=== PATIENT | female | born 1930 | race Caucasian/White ===

== ENCOUNTER 2016-09-24 19:52 | Inpatient (IN) | payer MEDICARE, OTHER ==
[~2016-09-24] VITALS: Ht 170.2 cm; Wt 90.1 kg
[~2016-09-24 19:52] MED LIST: FEXO180T85 PO; FURO40TA4 PO; HYDR99LO TOP; HYPR25DR2 BOTH_EYES; LACT10SO27 PO; METO25TA99 PO; OMEP20CA11 PO; PETR3.5O BOTH_EYES; PROP10DR5 BOTH_EYES; SPIR50TA2 PO
[2016-09-24 19:55] VITALS: BP 133/64; PULSE 80; RESP 18; O2SAT 95
[2016-09-24 20:36] LABS: BASOPHILS % (AUTO) 0.2 % (0-3); EOSINOPHILS % (AUTO) 3.2 % (0-5); MONOCYTES % (AUTO) 10.6 % (4-12); Mean Corpuscular Hemoglobin 32.4 pg (27.0-35.0); Mean Corpuscular Volume 99.3 fL (81-100); NEUTROPHILS % (AUTO) 74.6 % (40-74); Platelet Count 157 bil/L (150-400)
--- NOTE | 2016-09-24 21:23 | ED.REPORT ---
HPI-General Illness Date of Service Sep 24, 2016 ED Provider: Jose Chamberlain MD An 86 year old female with a history of [place], fatty liver, kidney issues, and recent UTI presents to the ED with family due to lower extremity edema and weakness. Per pt's family, she has been fatigued, moaning, and complaining of "feeling unwell" since yesterday. She also admits to dysuria and began complaining of a headache and left arm pain in the ED. The lower extremity edema was present before this point. The pt is on Lasix and her PCP has been increasing her dose, but her family states that this does not appear to be helping. She is now taking 80 mg. The pt denies fever, vomiting, abdominal pain , chest pain, shortness of breath, rhinorrhea, or diarrhea. The pt was admitted on 07/27/2016 for severe sepsis, UTI, and acute on chronic kidney injury. She was discharged on 07/31/2016 after a course of antibiotics. Nursing Notes Stated Complaint: HEADACHE,CAN'T STAND Chief Complaint: General Complaint Nursing Notes Reviewed: Yes Allergies: Coded Allergies: [place] And Derivatives (Verified Allergy, Severe, Rash,Itching,SOB, ) MUSHROOM (Verified Allergy, Severe, Rash,Itching,SOB, 08/30/16) shellfish derived (Verified Allergy, Severe, Headache, 08/30/16) Oily Fish (Verified Allergy, Intermediate, Hives, migraines, 08/30/16) Penicillins (Verified Allergy, Intermediate, rash, 08/30/16) quinine (Verified Allergy, Intermediate, rash, 08/30/16) Uncoded Allergies: SHELL FISH (Allergy, Intermediate, abd pain, rash, 03/20/16) migrains Scheduled Furosemide (Furosemide) 40 Mg Tablet 40 MG PO DAILY Metoprolol Succinate ER (Metoprolol Succinate ER) 25 Mg Tab.er.24h 12.5 TAB PO BID Mineral Oil/Petrolatum,White (Refresh P.m. Ointment) 3.5 Gm Oint...g. 1 APPLIC BOTH_EYES HS Omeprazole (Omeprazole) 20 Mg Capsule.dr 20 MG PO QAM Spironolactone (Spironolactone) 50 Mg Tablet 50 MG PO DAILY Scheduled PRN Fexofenadine (Padma Allergy) 180 Mg Tablet 180 MG PO DAILY PRN PRN For Congestion Hydrocortisone (Cortizone-10) 99 Gm Lotion 1 APPLIC TOP DAILY PRN PRN skin irritation apply to affected area Hypromellose (Genteal Mild To Moderate) 25 Ml Drops 1 GTT BOTH_EYES BID PRN PRN For Eye Irritation Lactulose (Lactulose) 10 Gm/15 Ml Solution 10 GM PO ASDIRECTED PRN PRN 2 stool per day take one to three times a day with goal of at least 2 bowel movements daily Propylene Glycol/Peg 400 (Systane Gel Eye Drops) 10 Ml Drops.gel 1 GTT BOTH_ EYES DAILY PRN PRN For Eye Irritation General Time Seen by MD: 21:17 Chief Complaint Other (Malaise) Hx Obtained From: Patient, Other family... Arrived By: Walk-in Sudden in Onset?: No Onset Occurred: 1 day ago Symptom Duration: Since onset Recent Healthcare: Recent doctor visit, Recent hospitalization Similar Sx Previous: No Past Medical History Past Medical History Notes: Admit July 27 through 07/31/2016 for severe sepsis, UTI, acute on chronic kidney injury Code status: DNR Past Medical History 1. 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 Chronic macrocytic anemia b. Splenomegaly and chronic thrombocytopenia 2. Hypertension, controlled 3. History of UTIs, recent UTI 07/27/16 culture positive Klebsiella, ampicillin resistant 4. 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. 5. Right thyroid nodule. 6. Anemia with microcytosis. 7. Depression. 8. History of basal cell carcinoma of the forehead. 9. Recent admission with septic shock due to acute cholecystitis managed medically, complicated by TAMELA 10. Coronary artery disease, remote myocardial infarction. 11. Chronic knee pain 12. [place] 13. Fatty liver 14. UTI Past Surgical History Reports: Hysterectomy Smoking History Never Smoker Social History Alcohol Use: Denies alcohol use Drug Use: Denies drug use Other Social History: Good social support, Local resident Ambulatory Status Independent Review of Systems lower extremity edema Full Review of Systems Constitutional: Reports: Fatigue, Malaise, Weakness - generalized, Denies: Fever Respiratory: Denies: Non-productive cough, Shortness of breath Cardiovascular: Denies: Chest pain GI: Denies: Abdominal pain, Diarrhea, Nausea, Vomiting Female: Reports: Dysuria Musculoskeletal: Reports: Extremity pain (left arm) Skin: Denies Rash Allergy / Immune: Denies: Rhinorrhea Neurologic: Reports: Headache Complete sys rev & neg: except as marked. Physical Exam Vital Signs Vital Signs Date Time Temp Pulse Resp B/P Pulse Ox O2 Delivery O2 Flow Rate FiO2 09/24/16 22:15 77 23 130/42 96 Room Air 09/24/16 19:55 36.4 80 18 133/64 95 Room Air Initial VS: Reviewed General/Constitutional: Awake, Alert Head / Eyes: Atraumatic, Normocephalic, PERRL, EOMI ENT: Atraumatic, Airway patent, Mucous membranes moist Neck: Atraumatic, Supple, Full range of motion Respiratory / Chest: Atraumatic, Breath sounds NL, Breath sounds = bilat, No respiratory distress Cardiovascular: Heart rate NL, Regular rhythm, Heart sounds NL Abdomen: Atraumatic, Soft, Non-tender, No guarding, No rebound Back: Atraumatic, Full range of motion Upper Extremities Upper Extremity / MS: Atraumatic, Full range of motion Lower Extremity / Pelvis / MS: Atraumatic, Full range of motion 2+ lower extremity edema Skin: Atraumatic, Color NL, No rash, Warm, Dry Neurologic: Oriented X3, Speech NL, No motor deficits, No sensory deficits Psychiatric: Affect NL, Mood NL Interpretation & Diagnostics Lab Results Interpretation Result Diagram: 09/24/16 2030 09/24/16 2030 Test 09/24/16 20:30 09/24/16 23:59 White Blood Count 9.4th/mm3 (3.8-10.1) Red Blood Count 2.99mil/mm3 (3.90-5.20) Hemoglobin 9.7g/dL (12.0-15.6) Hematocrit 29.7% (35.0-46.0) Mean Corpuscular Volume 99.3fL (81-100) Mean Corpuscular Hemoglobin 32.4pg (27.0-35.0) Mean Corpuscular Hemoglobin Concent 32.7% (32.0-37.0) Red Cell Distribution Width 14.8% (12.3-15.4) Platelet Count 157bil/L (150-400) Neutrophils (%) (Auto) 74.6% (40-74) Lymphocytes (%) (Auto) 11.2% (14-46) Monocytes (%) (Auto) 10.6% (4-12) Eosinophils (%) (Auto) 3.2% (0-5) Basophils (%) (Auto) 0.2% (0-3) Sodium Level 137mEq/L (134-144) Potassium Level 2.3mEq/L (3.5-5.2) Chloride Level 93mEq/L (97-108) Carbon Dioxide Level 28mmol/L (18-29) Blood Urea Nitrogen 33mg/dL (8-27) Creatinine 2.29mg/dL (0.57-1.00) Estimat Glomerular Filtration Rate 29mL/min (>59) Glucose Level 195mg/dL (60-99) Calcium Level 8.9mg/dL (8.5-10.1) Magnesium Level 2.0mg/dL (1.6-2.6) Total Bilirubin 1.8mg/dL (0.0-1.2) Aspartate Amino Transf (AST/SGOT) 56U/L (0-50) Alanine Aminotransferase (ALT/SGPT) 27U/L (0-32) Alkaline Phosphatase 175U/L (25-165) Troponin T 0.033ug/L (0.0-0.011) Total Protein 6.7g/dL (6.4-8.4) Albumin 3.1g/dL (3.4-5.0) Hold Mares Top Tube Received (Received) Urine Color Yellow (YELLOW) Urine Appearance Hazy (CLEAR,HAZY) Urine pH 6.0 (5.0-8.0) Urine Specific [place] 1.010 (1.003-1.035) Urine Protein Negativemg/dL (NEG,TRACE) Urine Glucose (UA) Negativemg/dL (NEGATIVE) Urine Ketones Negativemg/dL (NEGATIVE) Urine Occult Blood Trace (NEGATIVE) Urine Nitrite Positive (NEGATIVE) Urine Bilirubin Negative (NEGATIVE) Urine Urobilinogen Normalmg/dL (NORMAL) Urine Leukocyte Esterase Moderate (NEGATIVE) Urine RBC 0-2/hpf (0-2) Urine WBC >50/hpf (0-5) Urine Epithelial Cells Few/hpf (NONE-MOD) Urine Crystals None seen (NONE SEEN) Urine Bacteria Many/hpf (NONE-FEW) Urine Hyaline Casts None/lpf (NONE) Urine Granular Casts None seen (NONE SEEN) Urine Waxy Casts None seen (NONE SEEN) Urine Red Blood Cell Casts None seen (NONE SEEN) Urine White Blood Cell Casts None seen (NONE SEEN) Urine Mucus None seen (None Seen) Urine Trichomonas None seen (NONE SEEN) Urine Yeast None (NONE SEEN) Urinalysis Comment None Urine Culture Reflexed Indicated ECG Interpretation ECG Interpretation: normal sinus rhythm with a rate of 75 atrial premature complex LVH with secondary repolarization abnormality Time: 21:33 Interpreted by: ED physician Re-Eval/Medical Decision Med Decision/Clinical Course 86-year-old female history of nonalcoholic fatty liver cirrhosis, recent admission for urosepsis presenting with weakness times several days. Potassium is 2.3. Urine positive leukocytes. Creatinine is 2.2. Hypokalemia likely due to diuretic use with furosemide. Patient will be admitted for hypokalemia, acute kidney injury, UTI. She was given 1 dose of Rocephin here after blood cultures. Has a groin rash appears candidal. We will admit to telemetry. Source of Hx: Old records Time of Eval: 21:17 Patient Status: Condition unchanged Re-Evaluation/Progress Note: Pt informed of the need for admission during the intial interview. The pt understands and agrees with the plan. All questions are addressed at this time. Consultation : Referral / Consult Name: Nilsa Duarte MD Consulted With: Hospitalist Call Returned at: 00:14 Labeling Specialist: Agrees with eval, Agrees with plan, Accepts admit Note: Spoke with Dr. Duarte, hospitalist, regarding pt's case. Dr. Duarte agrees with the evaluation and agrees to admit the pt. Counseled Regarding: Diagnosis, Lab results, Need for admission Discharge & Departure Primary Impression: Hypokalemia Additional Impressions: UTI (urinary tract infection) Urinary tract infection type: site unspecified Hematuria presence: without hematuria Qualified Code: N39.0 - Urinary tract infection, site not specified Acute kidney injury Disposition: ADMITTED TO HOSPITAL Discharge Condition All VS Reviewed: Yes Condition: Stable Referrals: [facility] (PCP) [place] Attestation Portions of this note were transcribed by Abel Kapoor. I, Dr. Chamberlain personally performed the history, physical exam and medical decision-making; I reviewed and confirmed the accuracy of the information in the transcribed note. Signed by: Palmira Moscoso, 09/25/2016 and 00:25. copies to: [facility] Jose Chamberlain MD Sep 24, 2016 21:23 ABEL KAPOOR Sep 25, 2016 00:26
[2016-09-24] MEDS ORDERED: KCl 40 mEq/D5W 500 mL 40 MEQ in IV Premix 1 EACH IV ONE (21:50)
[2016-09-24] MEDS ORDERED: 0.9% Sodium Chloride 1,000 ML IV ONE (21:50)
[2016-09-24 22:15] VITALS: BP 130/42; PULSE 77; RESP 23; O2SAT 96
[2016-09-25] VITALS (9 sets, daily range): BP systolic 107–142; BP diastolic 46–68; PULSE 69–81; RESP 17–22; O2SAT 93–97
[2016-09-25] MEDS ORDERED: cefTRIAXone Inj 1,000 MG in IV Premix 1 EACH IV ONE (00:05)
[2016-09-25] MEDS ORDERED: Ondansetron 2 mg/mL 2 mL Inj IVPUSH PRN ×2 (00:20→01:05)
[2016-09-25] MEDS ORDERED: Alum-Mag Hydrox-Simeth 30 mL Suspension PO PRN ×2 (00:20→01:05)
[2016-09-25 00:42] LABS: APPEARANCE,URINE HAZY (CLEAR,HAZY); COLOR,URINE YELLOW (YELLOW); OCCULT BLOOD,URINE TRACE (NEGATIVE); UROBILINOGEN,URINE NORMAL (NORMAL)
[2016-09-25] MEDS ORDERED: Polyethylene Glycol (PEG) 17 Gm Powder PO PRN (01:05)
[2016-09-25] MEDS ORDERED: Potassium Chloride 20 mEq/15 mL 15mL Oral Soln PO ONE ×2 (01:15→17:10)
--- NOTE | 2016-09-25 01:34 | PCM.HPMED ---
Subjective Date of Service Sep 25, 2016 Primary Provider: Admitting Physician: Nilsa Duarte MD Primary Care Physician: Clinic,[facility] Residency Attending Physician: Nilsa Duarte MD Admit Status: From the Emergency Department, Full Admit, Remote Telemetry Chief Complaint: Generalized weakness History of Present Illness: This is a 86-year-old female who presents with a several day history of increasing weakness. She denies any fevers or chills. She does admit to some urinary frequency and burning. She had previously been hospitalized here August 30 to the for acute severe sepsis thought secondary to urinary tract infection. Her evaluation here includes labs which are significant for a low potassium level of 2.3 with a BUN of 33 a creatinine of 2.29. At previous visit her BUN was 25 and creatinine was 1.15 calculated GFR 64. She was also found to have a glucose of 195. Her old records does not appear to have a history of diabetes. White count today was 9.4 with 75% polys sodium level was 137 magnesium level was 2.0. Her urine analysis was consistent with a UTI revealing many white cells and many WBCs. Sono patient is on furosemide and spironolactone for lower extremity swelling which might be the source of her hypokalemia. Review of Systems: Patient denies any chest pain denies cough denies any shortness of breath all other review of systems are reviewed and are negative except for as in history of present illness. Allergies Coded Allergies: [place] And Derivatives (Verified Allergy, Severe, Rash,Itching,SOB, ) MUSHROOM (Verified Allergy, Severe, Rash,Itching,SOB, 08/30/16) shellfish derived (Verified Allergy, Severe, Headache, 08/30/16) Oily Fish (Verified Allergy, Intermediate, Hives, migraines, 08/30/16) Penicillins (Verified Allergy, Intermediate, rash, 08/30/16) quinine (Verified Allergy, Intermediate, rash, 08/30/16) Uncoded Allergies: SHELL FISH (Allergy, Intermediate, abd pain, rash, 03/20/16) migrains Home Medications Scheduled Furosemide (Furosemide) 40 Mg Tablet 40 MG PO DAILY Metoprolol Succinate ER (Metoprolol Succinate ER) 25 Mg Tab.er.24h 12.5 TAB PO BID Mineral Oil/Petrolatum,White (Refresh P.m. Ointment) 3.5 Gm Oint...g. 1 APPLIC BOTH_EYES HS Omeprazole (Omeprazole) 20 Mg Capsule.dr 20 MG PO QAM Spironolactone (Spironolactone) 50 Mg Tablet 50 MG PO DAILY Scheduled PRN Fexofenadine (Padma Allergy) 180 Mg Tablet 180 MG PO DAILY PRN PRN For Congestion Hydrocortisone (Cortizone-10) 99 Gm Lotion 1 APPLIC TOP DAILY PRN PRN skin irritation apply to affected area Hypromellose (Genteal Mild To Moderate) 25 Ml Drops 1 GTT BOTH_EYES BID PRN PRN For Eye Irritation Lactulose (Lactulose) 10 Gm/15 Ml Solution 10 GM PO ASDIRECTED PRN PRN 2 stool per day take one to three times a day with goal of at least 2 bowel movements daily Propylene Glycol/Peg 400 (Systane Gel Eye Drops) 10 Ml Drops.gel 1 GTT BOTH_ EYES DAILY PRN PRN For Eye Irritation PMH Past Medical History Notes: Admit July 27 through 07/31/2016 for severe sepsis, UTI, acute on chronic kidney injury Code status: DNR Past Medical History 1. 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 Chronic macrocytic anemia b. Splenomegaly and chronic thrombocytopenia 2. Hypertension, controlled 3. History of UTIs, recent UTI 07/27/16 culture positive Klebsiella, ampicillin resistant 4. 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. 5. Right thyroid nodule. 6. Anemia with microcytosis. 7. Depression. 8. History of basal cell carcinoma of the forehead. 9. Recent admission with septic shock due to acute cholecystitis managed medically, complicated by TAMELA 10. Coronary artery disease, remote myocardial infarction. 11. Chronic knee pain 12. [place] 13. Fatty liver 14. UTI Past Surgical History Reports: Hysterectomy Family History Mother with a history of [place] causing at age 70 Social History Hx Alcohol Use: No Hx Substance Use: No Hx Tobacco Use: No Smoking Status: Never Smoker Living Arrangement: with Family Exam Vital Signs Vital Sign - Last Date Time Temp Pulse Resp B/P Pulse Ox O2 Delivery O2 Flow Rate FiO2 09/25/16 01:05 76 17 118/46 97 Room Air 09/24/16 19:55 36.4 Intake and Output 09/24/16 09/24/16 09/25/16 Cumulative From/Thru 15:00 23:00 07:00 09/24/16 19:55 - 09/24/16 23:21 Intake Total 1000 ml 1000 ml Balance 1000 ml 1000 ml Intake IV Total 1000 ml 1000 ml Exam Constitutional: Elderly woman in no pain. Appears to be slightly fatigued and lethargic. Head: Normocephalic atraumatic Eyes: PERRLA DC EOMI Mouth: Dry mucosa Neck: No adenopathy Chest: Decreased breath sounds at her bases Cor: Regular rate and rhythm S1-S2 without murmur Abdomen: Soft nontender bowel sounds present Extremities: Bilateral 1+ lower extremity edema with bilateral venous stasis dermatitis changes Skin: No rashes except noted as above Psych: Mood and affect are appropriate Neuro: Alert and oriented 3, motor strength is intact bilaterally Lab and Diagnostics Labs Laboratory Tests 72 Hours Test 09/24/16 20:30 09/24/16 23:59 09/25/16 01:01 White Blood Count 9.4th/mm3 (3.8-10.1) Red Blood Count 2.99mil/mm3 (3.90-5.20) Hemoglobin 9.7g/dL (12.0-15.6) Hematocrit 29.7% (35.0-46.0) Mean Corpuscular Volume 99.3fL (81-100) Mean Corpuscular Hemoglobin 32.4pg (27.0-35.0) Mean Corpuscular Hemoglobin Concent 32.7% (32.0-37.0) Red Cell Distribution Width 14.8% (12.3-15.4) Platelet Count 157bil/L (150-400) Neutrophils (%) (Auto) 74.6% (40-74) Lymphocytes (%) (Auto) 11.2% (14-46) Monocytes (%) (Auto) 10.6% (4-12) Eosinophils (%) (Auto) 3.2% (0-5) Basophils (%) (Auto) 0.2% (0-3) Sodium Level 137mEq/L (134-144) Potassium Level 2.3mEq/L (3.5-5.2) Chloride Level 93mEq/L (97-108) Carbon Dioxide Level 28mmol/L (18-29) Blood Urea Nitrogen 33mg/dL (8-27) Creatinine 2.29mg/dL (0.57-1.00) Estimat Glomerular Filtration Rate 29mL/min (>59) Glucose Level 195mg/dL (60-99) Calcium Level 8.9mg/dL (8.5-10.1) Magnesium Level 2.0mg/dL (1.6-2.6) Total Bilirubin 1.8mg/dL (0.0-1.2) Aspartate Amino Transf (AST/SGOT) 56U/L (0-50) Alanine Aminotransferase (ALT/SGPT) 27U/L (0-32) Alkaline Phosphatase 175U/L (25-165) Total Protein 6.7g/dL (6.4-8.4) Albumin 3.1g/dL (3.4-5.0) Hold Mares Top Tube Received (Received) Urine Color Yellow (YELLOW) Urine Appearance Hazy (CLEAR,HAZY) Urine pH 6.0 (5.0-8.0) Urine Specific [place] 1.010 (1.003-1.035) Urine Protein Negativemg/dL (NEG,TRACE) Urine Glucose (UA) Negativemg/dL (NEGATIVE) Urine Ketones Negativemg/dL (NEGATIVE) Urine Occult Blood Trace (NEGATIVE) Urine Nitrite Positive (NEGATIVE) Urine Bilirubin Negative (NEGATIVE) Urine Urobilinogen Normalmg/dL (NORMAL) Urine Leukocyte Esterase Moderate (NEGATIVE) Urine RBC 0-2/hpf (0-2) Urine WBC >50/hpf (0-5) Urine Epithelial Cells Few/hpf (NONE-MOD) Urine Crystals None seen (NONE SEEN) Urine Bacteria Many/hpf (NONE-FEW) Urine Hyaline Casts None/lpf (NONE) Urine Granular Casts None seen (NONE SEEN) Urine Waxy Casts None seen (NONE SEEN) Urine Red Blood Cell Casts None seen (NONE SEEN) Urine White Blood Cell Casts None seen (NONE SEEN) Urine Mucus None seen (None Seen) Urine Trichomonas None seen (NONE SEEN) Urine Yeast None (NONE SEEN) Urinalysis Comment None Urine Culture Reflexed Indicated Result Diagram: 09/24/16202909/24/162029 12-lead ECG ECG Interpretation: normal sinus rhythm with a rate of 75 atrial premature complex LVH with secondary repolarization abnormality Assessment & Plan # Hypokalemia , acute, present on admission We will replete with both IV and by mouth potassium chloride Placed on telemetry Recheck labs in a.m. Thought to be secondary to diuretic use # UTI, acute, present on admission We will treat with IV Rocephin We will await urine culture and sensitivities # Acute on chronic kidney disease, present on admission IV fluids along with potassium chloride repletion Hold diuretics We will recheck labs in a.m., # Anemia, chronic, present on admission Currently he is stable. # Nonalcoholic liver cirrhosis, chronic Appears to be stable by looking at LFTs and clinical status # History of elevated ammonia level, chronic, present on admission We will go ahead and check ammonia level this visit # DVT prophylaxis We will place on subcutaneous prophylactic heparin and adjust for renal insufficiency #CODE STATUS Patient is DNR/DNI Pain Evaluation: Adequate Pain Control VTE Prophylaxis: Sub-Q Heparin (Unfractionated) Resuscitation Status: DNR/DNI:Do Not Resuscitate/Intubate Time spent 60 minutes Nilsa Duarte MD Sep 25, 2016 01:34
[2016-09-25] MEDS: Heparin 5,000 Unit/mL Inj SUBQ SCH ×2 (02:12→13:47)
[2016-09-25] MEDS ORDERED: 0.9% Sodium Chloride 1,000 ML ONE (02:38)
[2016-09-25] MEDS: 0.9% Sodium Chloride 1,000 ML IV SCH ×2 (02:50→18:13)
--- NOTE | 2016-09-25 03:29 | NUR ---
admit note/med red Pt is admitted to room 3005 around 01:25 from ER for hypokalemia, TAMELA, and UTI. K rider infusing at slower rate because pt reported burning pain from the IV site. Pt is A&O to self and place only. c/o generalized soreness from a fall. Bruises noted to BUEs and BLEs. able to help with repositioning. Pt is oriented to room and plan of care; need reinforcement due to confusion and forgetfulness. bed alarm on for safety. Med rec not completed due to pt's mental status; no family available on admit.
[2016-09-25] MEDS: Lactulose 20 Gm/30 mL 30 mL Syrup PO SCH ×8 (04:57→23:50)
[2016-09-25 06:19] LABS: BASOPHILS % (AUTO) 0.3 % (0-3); EOSINOPHILS % (AUTO) 2.6 % (0-5); MONOCYTES % (AUTO) 13.7 % (4-12); Mean Corpuscular Hemoglobin 33.6 pg (27.0-35.0); Mean Corpuscular Volume 98.5 fL (81-100); Platelet Count 118 bil/L (150-400)
[2016-09-25] MEDS: Sodium Chloride LOK Flush 10 mL Syringe IVFLUSH SCH ×2 (08:01→15:39)
--- NOTE | 2016-09-25 08:26 | DRSVH ---
PROCEDURE: X-RAY CHEST ONE VIEW, PORTABLE ([id number]) INDICATIONS: cough TECHNIQUE: One view of the chest was acquired. COMPARISON: [facility], CR, XR CHEST 1VW (PORTABLE), 08/30/2016, 13:21. FINDINGS: Surgical changes and devices: None. Lungs and pleura: No pleural effusions or pneumothorax. Lungs are difficult to accurately assess du e convex rightward prominent scoliosis previously present. There may be stranding at the right and l eft lung bases near the heart but this may simply represent atelectasis associated with reduced inspi ration and scoliosis. Mediastinum: Mediastinal contours appear normal. Heart size is normal. Bones and chest wall: No suspicious bony lesions. Overlying soft tissues appear unremarkable. IMPRESSION: Reduced inspiratory volume, prominent convex rightward scoliosis, stranding is mild at ea ch lung base but this is more likely from atelectasis than from pneumonia, in my opinion. Dictated by: Jalen Jurado M.D. on 09/25/2016 at 8:24 Approved by: Jalen Jurado M.D. on 09/25/2016 at 8:24
[2016-09-25] MEDS: Pantoprazole 4 mg/mL 10 mL Inj IVPUSH SCH (09:48)
[2016-09-25] MEDS: MeTOProlol XL 25 mg ER24 Tablet PO SCH (09:52)
[2016-09-25] MEDS ORDERED: Nystatin 100,000 Unit/Gm 15 Gm Powder TOPICAL PRN (12:15)
[2016-09-25 12:43] LABS: INR 1.35 ratio
[2016-09-25 12:56] LABS: Magnesium 1.8 mg/dL (1.6-2.6)
--- NOTE | 2016-09-25 13:53 | NUR ---
Social Work-initial assessment: data:See initial assessment. Pt is a 86 y/o female who was admitted on 09/25/16 for TAMELA per H&P. Pt's insurance is [employer] and [facility]CP [facility]. EMR reviewed. SW met with pt at bedside to discuss discharge planning, SW role explained. Pt is alert and oriented x3. Pt resides at home with her Don where she remains independent with basic ADLS. Pt uses a FWW at baseline and does not drive. Pt is currently open with [employer], confirmed with Farhad Brice [phone] [facility] liaison for RN and PT, access given. Pt has no SNF history. Pt has no terminal clerk care or VA benefits. SW discussed DPOA/advanced directive, pt states they have completed this, SW encouraged her to bring a copy into the hospital. Pt's to provide transport home. Pt will need resume HH orders at discharge. SW will continue to follow. Assessment:Pt who would benefit from resume HH. Plan:Pt to discharge home with when medically stable via POV. Pt will need resume [facility] orders at discharge for RN and PT, access given. SW will continue to follow. MOHAMUD Dyer Addendum: 09/25/16 at 1415 by EBEN GALARZA Amended: Links added.
--- NOTE | 2016-09-25 14:53 | NUR ---
BM/med rec Pt has had three extra large, loose BM's this shift thus far. 2 doses of Lactulose held per order for amount of BM's. in briefly this morning, did not provide information on medications that pt is currently taking. Pt alert to self and unsure of current medications. Addendum: 09/25/16 at 1540 by SEFERINO ASHLEY RN [facility] listed as primary pharmacy. Bill MARTINEZ faxed pharmacy requesting current med list. Addendum: 09/25/16 at 1809 by SEFERINO ASHLEY RN Med list rec'd from [facility] in [place]. not avail to confirm medications, pt is unreliable historian. Pt continues to have large, loose BM's. aware that Lactulose has been held as BM goal has been met today.
[2016-09-25] MEDS ORDERED: FURO40TA4 PO (18:03)
[2016-09-25] MEDS ORDERED: TORS20TA3 PO (18:05)
[2016-09-25] MEDS ORDERED: RIFA550T3 PO (18:06)
[2016-09-26] VITALS (8 sets, daily range): BP systolic 87–120; BP diastolic 33–66; PULSE 60–75; RESP 18–20; O2SAT 93–97
[2016-09-26] MEDS: cefTRIAXone Inj 1,000 MG in IV Premix 1 EACH IV SCH ×2 (00:19→23:46)
[2016-09-26] MEDS: Sodium Chloride LOK Flush 10 mL Syringe IVFLUSH SCH ×3 (00:20→16:30)
[2016-09-26] MEDS: Heparin 5,000 Unit/mL Inj SUBQ SCH ×2 (00:23→14:25)
[2016-09-26] MEDS: Lactulose 20 Gm/30 mL 30 mL Syrup PO SCH ×8 (00:34→23:50)
[2016-09-26] MEDS: 0.9% Sodium Chloride 1,000 ML IV SCH ×2 (05:15→20:55)
[2016-09-26 06:28] LABS: BASOPHILS % (AUTO) 0.4 % (0-3); EOSINOPHILS % (AUTO) 7.5 % (0-5); MONOCYTES % (AUTO) 16.7 % (4-12); Mean Corpuscular Hemoglobin 32.7 pg (27.0-35.0); NEUTROPHILS % (AUTO) 61.2 % (40-74); Platelet Count 99 bil/L (150-400)
[2016-09-26 06:41] LABS: Magnesium 1.7 mg/dL (1.6-2.6); Phosphorus 2.1 mg/dL (2.5-4.9)
[2016-09-26] MEDS: MeTOProlol XL 25 mg ER24 Tablet PO SCH (07:46)
[2016-09-26] MEDS: Pantoprazole 4 mg/mL 10 mL Inj IVPUSH SCH (10:36)
--- NOTE | 2016-09-26 18:18 | NUR ---
Activity/Mentation/BM Pt up OOB more this shift. Using BSC and sitting in chair for all meals. Pt tolerating this activity well. Pt is more alert this shift compared to yesterday. She is alert, oriented and pt's , Nicolas states he feels she is back to baseline. Pt had 2 XL BM's this shift, Lactulose doses held after initial morning dose as goal of 2 BM's was met. Pt currently resting comfortably, bed in lowest, locked position and call light in reach. Addendum: 09/26/16 at 1821 by SEFERINO ASHLEY RN Inner corners of groin continue to be excoriated and red, very tender. Applying calmoseptine to areas.
--- NOTE | 2016-09-26 21:49 | PCM.PNMED ---
Subjective Date of Service Sep 26, 2016 Subjective Patient is feeling a little bit better. She has no new complaints. Exam Vital Signs Vital Sign - Last Date Time Temp Pulse Resp B/P Pulse Ox O2 Delivery O2 Flow Rate FiO2 09/26/16 21:11 36.4 74 18 110/48 96 Room Air Intake and Output 09/25/16 09/25/16 09/26/16 Cumulative From/Thru 15:00 23:00 07:00 09/24/16 19:55 - 09/26/16 06:56 Intake Total 847 ml 1471 ml 1505 ml 5123 ml Balance 847 ml 1471 ml 1505 ml 5123 ml Intake Oral 754 ml 400 ml 1454 ml IV Total 847 ml 717 ml 1105 ml 3669 ml # Voids 3 3 8 # Bowel Movements 3 1 4 Exam General: Patient is comfortable in no apparent distress. HEENT: Head is atraumatic normocephalic. Eyes: Pupils are equally round and reactive to light and accommodation. Extraocular muscles are intact. Sclera are white anicteric. Subconjunctival mucosa is pink. Ears and nose are unremarkable. Oropharynx: There is no mucosal lesions, there is no thrush, there is no pharyngitis. Neck: Is supple, there are no nodes, or masses, or tenderness. Chest: Is clear to auscultation and percussion. There are no rales, rhonchi, wheezes or rubs. Heart: Rate, rhythm is regular. There is no murmur, rub or gallop. Abdomen: Good bowel sounds are present. Abdomen is soft, nontender, no organomegaly or masses were appreciated. Extremities: Are symmetrical and well perfused. There is no edema, there is no cellulitis, no rash. Neurologic: There are no focal neurological deficits. Cranial nerves II through XII are intact. There are no sensory or motor deficits. Psychiatric: Patients mood is calm and shows no sign of agitation. Genital: Deferred Rectal: Deferred Lab and Diagnostics Result Diagram: 09/26/16 0540 09/26/16 0540 Microbiology Name: NATALIE LUGO Age/Sex: 86/F Attend Dr: Nilsa Duarte MD Acct: [id number] Unit: [id number] Status: ADM IN Location: [facility] [place] 3005-1 Re09/25/16 Disch: Specimen: [id number] Collected: 09/24/16 Status: RES Req#: [id number] Received: 09/24/16 Source: RANDOM Sp Desc : Subm Dr: SILVA LANDEROS MD Ordered: URINE CULT Procedure Result Verified Site Microbiology SHRUTI CULT URINE Preliminary 09/26/16 PRELIMINARY ID GRAM NEGATIVE DEDRA ID AND SENS TO FOLLOW COLONY COUNT/QUANTITY >100,000 CFU/ml X-Rays, CTs and MRIs PROCEDURE: X-RAY CHEST ONE VIEW, PORTABLE ([id number]) INDICATIONS: cough TECHNIQUE: One view of the chest was acquired. COMPARISON: [facility], CR, XR CHEST 1VW (PORTABLE), 08/30/2016, 13 :21. FINDINGS: Surgical changes and devices: None. Lungs and pleura: No pleural effusions or pneumothorax. Lungs are difficult to accurately assess due convex rightward prominent scoliosis previously present. There may be stranding at the right and left lung bases near the heart but this may simply represent atelectasis associated with reduced inspiration and scoliosis. Mediastinum: Mediastinal contours appear normal. Heart size is normal. Bones and chest wall: No suspicious bony lesions. Overlying soft tissues appear unremarkable. IMPRESSION: Reduced inspiratory volume, prominent convex rightward scoliosis, stranding is mild at each lung base but this is more likely from atelectasis than from pneumonia, in my opinion. Dictated by: Jalen Jurado M.D. on 09/25/2016 at 8:24 Approved by: Jalen Jurado M.D. on 09/25/2016 at 8:24 12-lead ECG ECG Interpretation: normal sinus rhythm with a rate of 75 atrial premature complex LVH with secondary repolarization abnormality Assessment & Plan This is a 86-year-old female who presents with a several day history of increasing weakness. She denies any fevers or chills. She does admit to some urinary frequency and burning. She had previously been hospitalized here August 30 to the for acute severe sepsis thought secondary to urinary tract infection. Her evaluation here includes labs which are significant for a low potassium level of 2.3 with a BUN of 33 a creatinine of 2.29. At previous visit her BUN was 25 and creatinine was 1.15 calculated GFR 64. She was also found to have a glucose of 195. Her old records does not appear to have a history of diabetes. White count today was 9.4 with 75% polys sodium level was 137 magnesium level was 2.0. Her urine analysis was consistent with a UTI revealing many white cells and many WBCs. Sono patient is on furosemide and spironolactone for lower extremity swelling which might be the source of her hypokalemia. # Hypokalemia , acute, present on admission We will continue to replete with potassium chloride as needed -Continue to monitor daily. Continue on telemetry -Recheck labs in a.m. -Thought to be secondary to diuretic use # UTI, acute, present on admission -We will continue to treat with IV Rocephin -We will await final urine culture and sensitivities. So far there is greater than 100,000 colonies per milliliter of gram-negative rods. # Acute on chronic kidney disease, present on admission -IV fluids along with potassium chloride repletion to continue as needed -Hold diuretics for now -We will recheck labs in a.m., # Anemia, chronic, present on admission -Currently he is stable. -Continue daily CBC monitoring # Nonalcoholic liver cirrhosis, chronic -Appears to be stable by looking at LFTs and clinical status -Serum ammonia level over 150. -History of elevated ammonia level, chronic, present on admission -We will repeat ammonia level in a.m. -Continue lactulose and rifaximin # DVT prophylaxis We will continue on subcutaneous prophylactic heparin and adjust for renal insufficiency #CODE STATUS Patient is DNR/DNI Pain Evaluation: Adequate Pain Control GI Prophylaxis: Proton Pump Inhibitor VTE Prophylaxis: Sub-Q Heparin (Unfractionated) VTE Mechanical Devices: Intermittant Pneumatic CD Resuscitation Status: DNR/DNI:Do Not Resuscitate/Intubate Abiel Zapien MD Sep 26, 2016 21:49
[2016-09-27] VITALS (7 sets, daily range): BP systolic 103–150; BP diastolic 50–70; PULSE 72–92; RESP 18–34; O2SAT 95–97
[2016-09-27] MEDS: Sodium Chloride LOK Flush 10 mL Syringe IVFLUSH SCH ×3 (00:30→15:22)
[2016-09-27] MEDS: Heparin 5,000 Unit/mL Inj SUBQ SCH ×2 (01:05→15:22)
[2016-09-27] MEDS: Lactulose 20 Gm/30 mL 30 mL Syrup PO SCH ×8 (02:50→23:05)
[2016-09-27 07:06] LABS: BASOPHILS % (AUTO) 0.3 % (0-3); EOSINOPHILS % (AUTO) 9.9 % (0-5); MONOCYTES % (AUTO) 9.9 % (4-12); Mean Corpuscular Hemoglobin 32.2 pg (27.0-35.0); Mean Corpuscular Volume 101.7 fL (81-100); NEUTROPHILS % (AUTO) 68.4 % (40-74); Platelet Count 93 bil/L (150-400)
[2016-09-27] MEDS: Pantoprazole 4 mg/mL 10 mL Inj IVPUSH SCH (08:30)
[2016-09-27] MEDS: MeTOProlol XL 25 mg ER24 Tablet PO SCH (08:31)
[2016-09-27] MEDS: 0.9% Sodium Chloride 1,000 ML IV SCH ×2 (08:32→15:22)
--- NOTE | 2016-09-27 14:23 | NUR ---
Social Work: Readiness for d/c Data: Pt is on day 2 of hospitalization. EMR reviewed, pt discussed in rounds. states pt likely to d/c tomorrow. FOREST RESOURCE SPECIALIST will continue to follow. Assessment: Pt who is independent at baseline. Plan: Pt will d/c home via POV with [facility], RN/PT when medically stable, likely tomorrow. FOREST RESOURCE SPECIALIST will continue to follow. MOHAMUD Ham
--- NOTE | 2016-09-27 20:19 | PCM.PNMED ---
Subjective Date of Service Sep 27, 2016 Subjective The patient complains of diarrhea. However, the nurse Garima point out that the patient is on lactulose. And has not had any diarrhea since her last dose of lactulose. Since her lactulose was held she has not had any diarrhea. The patient overall is feeling better and has no new complaints. Exam Vital Signs Vital Sign - Last Date Time Temp Pulse Resp B/P Pulse Ox O2 Delivery O2 Flow Rate FiO2 09/27/16 17:59 36.5 81 18 150/70 95 Room Air Intake and Output 09/26/16 09/26/16 09/27/16 Cumulative From/Thru 15:00 23:00 07:00 09/24/16 19:55 - 09/27/16 06:05 Intake Total 1741 ml 200 ml 7064 ml Output Total 400 ml 200 ml 600 ml 1200 ml Balance -400 ml 1541 ml -400 ml 5864 ml Intake Oral 1057 ml 200 ml 2711 ml IV Total 684 ml 4353 ml Output Urine Total 200 ml 600 ml 800 ml Urine/Stool Mix 400 ml 400 ml # Voids 3 11 # Bowel Movements 1 2 7 Exam General: Patient is comfortable in no apparent distress. HEENT: Head is atraumatic normocephalic. Eyes: Pupils are equally round and reactive to light and accommodation. Extraocular muscles are intact. Sclera are white anicteric. Subconjunctival mucosa is pale. Ears and nose are unremarkable. Oropharynx: There is no mucosal lesions, there is no thrush, there is no pharyngitis. The oral mucosa is pale. Skin: There is pallor to the skin. Neck: Is supple, there are no nodes, or masses, or tenderness. Chest: Is clear to auscultation and percussion. There are no rales, rhonchi, wheezes or rubs. Heart: Rate, rhythm is regular. There is no murmur, rub or gallop. Abdomen: Good bowel sounds are present. Abdomen is soft, nontender, no organomegaly or masses were appreciated. Extremities: Are symmetrical and well perfused. There is no edema, there is no cellulitis, no rash. Neurologic: There are no focal neurological deficits. Cranial nerves II through XII are intact. There are no sensory or motor deficits. Psychiatric: Patients mood is calm and shows no sign of agitation. Genital: Deferred Rectal: Deferred Lab and Diagnostics Result Diagram: 09/27/16 1650 09/27/16 0642 Microbiology Name: NATALIE LUGO Age/Sex: 86/F Attend Dr: Nilsa Duarte MD Acct: [id number] Unit: [id number] Status: ADM IN Location: [facility] [place] 3005-1 Re09/25/16 Disch: Specimen: [id number] Collected: 09/24/16 Status: COMP Req#: [id number] Received: 09/24/16 Source: RANDOM Sp Desc : Subm Dr: SILVA LANDEROS MD Ordered: URINE CULT Procedure Result Verified Site Microbiology SHRUTI CULT URINE Final 09/27/16-0835 Organism 1 KLEBSIELLA PNEUMONIAE U COLONY COUNT/QUANTITY >100,000 CFU/ml KLEBSIELLA PNEUMONIAE Cefazolin-predicts results for the oral agents, cefaclor,cefdinir, cefpodoximen, cefprozil, cefuroximne axetil, cephalexin and loracarbed when used for therapy of uncomplicated UTI's due to E. coli, K. pneumoniae, and Proteus mirabilis. Cefpodoxime, cefdinir and cefuroxime axetil may be tested individually because some isolates may be susceptible to these agents while testing resistant to cefazolin. (CLSI R031-Y45 pg 53) 1. KLEBSIELLA PNEUMONIAE M.I.C Interp --------- ------ * AMOXICILLIN/CLAVULATE <=2 S * AMPICILLIN >=32 R * CEFAZOLIN (CEPHALOSPORIN) UTI 4 S * CEFEPIME <=1 S * CEFTRIAXONE <=1 S * CEFUROXIME SODIUM 4 S * CIPROFLOXACIN <=0.25 S * ERTAPENEM <=0.5 S * GENTAMICIN <=1 S * IMIPENEM <=1 S * LEVOFLOXACIN <=0.12 S * NITROFURANTOIN 32 S * TETRACYCLINE <=1 S * TOBRAMYCIN <=1 S * TRIMETHOPRIM/SULFAMETHOXAZOLE <=20 S X-Rays, CTs and MRIs PROCEDURE: X-RAY CHEST ONE VIEW, PORTABLE ([id number]) INDICATIONS: cough TECHNIQUE: One view of the chest was acquired. COMPARISON: [facility], CR, XR CHEST 1VW (PORTABLE), 08/30/2016, 13 :21. FINDINGS: Surgical changes and devices: None. Lungs and pleura: No pleural effusions or pneumothorax. Lungs are difficult to accurately assess due convex rightward prominent scoliosis previously present. There may be stranding at the right and left lung bases near the heart but this may simply represent atelectasis associated with reduced inspiration and scoliosis. Mediastinum: Mediastinal contours appear normal. Heart size is normal. Bones and chest wall: No suspicious bony lesions. Overlying soft tissues appear unremarkable. IMPRESSION: Reduced inspiratory volume, prominent convex rightward scoliosis, stranding is mild at each lung base but this is more likely from atelectasis than from pneumonia, in my opinion. Dictated by: Jalen Jurado M.D. on 09/25/2016 at 8:24 Approved by: Jalen Jurado M.D. on 09/25/2016 at 8:24 12-lead ECG ECG Interpretation: normal sinus rhythm with a rate of 75 atrial premature complex LVH with secondary repolarization abnormality Cardiac Echo Impressions Echocardiogram Report Name: NATALIE LUGO EStudy Date: 08/14/2016 Height: 67 in Hospital Exam Location: [facility] Weight: 206 lb Gender: Female BSA: 2.0 m2 : 1930 Age: 86 yrs BP: 133/65 mmHg Reason For Study: ASSESS VALVES Ordering Physician: Performed By: Britney Knott Referring Physician: Ion Wilcox Interpretation Summary The left ventricle is normal in size. The ejection fraction is estimated to be 60-65%. The right ventricular systolic pressure is estimated at 54 mmHg assuming a right atrial pressure of 8 mm Hg. There is no significant valvular heart disease. No other echocardiographic abnormalities seen. This is a limited exam and no obvious valvular heart disease is noted. Compared with the prior exam, the LA looks grossly normal in size and not severely enlarged as reported on the prior exam. No other obvious changes noted. Assessment & Plan This is a 86-year-old female who presents with a several day history of increasing weakness. She denies any fevers or chills. She does admit to some urinary frequency and burning. She had previously been hospitalized here August 30 to for acute severe sepsis thought secondary to urinary tract infection. Her evaluation here includes labs which are significant for a low potassium level of 2.3 with a BUN of 33 a creatinine of 2.29. At previous visit her BUN was 25 and creatinine was 1.15 calculated GFR 64. She was also found to have a glucose of 195. Her old records does not appear to have a history of diabetes. White count today was 9.4 with 75% polys sodium level was 137 magnesium level was 2.0. Her urine analysis was consistent with a UTI revealing many white cells and many WBCs. Luiso patient is on furosemide and spironolactone for lower extremity swelling which might be the source of her hypokalemia. # Hypokalemia , acute, present on admission We will continue to replete with potassium chloride as needed -Continue to monitor daily. Continue on telemetry -Recheck labs in a.m. -Thought to be secondary to diuretic use # UTI, acute, present on admission secondary to Klebsiella pneumonia -We will continue to treat with IV Rocephin day #2 of 7-10 # Acute on chronic kidney disease, present on admission improving -IV fluids along with potassium chloride repletion to continue as needed -Hold diuretics for now -We will recheck labs in a.m., # Anemia, chronic, present on admission. However, worse today. -Stool negative for occult blood. -Will repeat.-Check serum iron, TIBC, ferritin, reticulocyte count, B12 level, and folate level -Continue daily CBC monitoring -Patient may require transfusion of 1-2 units of packed red blood cells. # Nonalcoholic liver cirrhosis, chronic -Appears to be stable by looking at LFTs and clinical status -Serum ammonia level over 150. -History of elevated ammonia level, chronic, present on admission -We will repeat ammonia level in a.m. -Continue lactulose and rifaximin as tolerated. # DVT prophylaxis -We will discontinue subcutaneous prophylactic heparin due to decrease in hemoglobin and hematocrit. -We will place SCDs #CODE STATUS Patient is DNR/DNI Disposition: Patient like her to stay here another 48 hours to straighten out above problems. Pain Evaluation: Adequate Pain Control GI Prophylaxis: Proton Pump Inhibitor VTE Prophylaxis: SCDs VTE Mechanical Devices: Intermittant Pneumatic CD Resuscitation Status: DNR/DNI:Do Not Resuscitate/Intubate Abiel Zapien MD Sep 27, 2016 20:19
[2016-09-27] MEDS ORDERED: Albuterol 2.5 mg/3 mL Inhalation Solution NEB PRN (21:20)
--- NOTE | 2016-09-27 22:57 | NUR ---
Respiratory At beginning of NOC shift, patient had audible wheezes, but denied shortness of breath. Patient is on room air, saturations mid 90's, RR 34. Auscultated lung rodriguez, coarse and decreased. Called RT to assess, agreed with findings, but counted RR 22. Patient has NS infusing at 80 ml/hr. Called MD with patient's condition- new order to discontinue IV fluid and order PRN nebulizer treatments. Informed MD of patient's home dose of 40 mg Furosemide that has not been restarted- night MD said he would defer to day team. Patient declined nebulizer treatment, IV fluid discontinued.
[2016-09-27] MEDS: cefTRIAXone Inj 1,000 MG in IV Premix 1 EACH IV SCH (23:05)
[2016-09-28] VITALS (7 sets, daily range): BP systolic 96–111; BP diastolic 58–65; PULSE 57–87; RESP 20–24; O2SAT 93–100
[2016-09-28] MEDS: Sodium Chloride LOK Flush 10 mL Syringe IVFLUSH SCH ×2 (00:08→07:34)
[2016-09-28] MEDS: Lactulose 20 Gm/30 mL 30 mL Syrup PO SCH ×5 (02:50→13:52)
[2016-09-28 06:44] LABS: BASOPHILS % (AUTO) 0.6 % (0-3); EOSINOPHILS % (AUTO) 8.1 % (0-5); MONOCYTES % (AUTO) 13.5 % (4-12); Mean Corpuscular Hemoglobin 32.5 pg (27.0-35.0); Mean Corpuscular Volume 101.6 fL (81-100); NEUTROPHILS % (AUTO) 66.9 % (40-74); Platelet Count 111 bil/L (150-400)
[2016-09-28 07:28] LABS: Unsaturated Iron Binding 156.1 ug/dL
[2016-09-28] MEDS ORDERED: Pantoprazole 40 mg ER24 Tablet PO SCH (07:30)
[2016-09-28] MEDS: MeTOProlol XL 25 mg ER24 Tablet PO SCH (07:35)
[2016-09-28] MEDS ORDERED: Multivit-Miner-Folic Acid-Iron Tablet PO SCH (14:51)
--- NOTE | 2016-09-28 15:39 | PCM.DIMED ---
Discharge Instructions Date of Service Sep 28, 2016 Dates of Hospitalization Sep 25, 2016 at 00:34 Diet Heart Healthy Activity Limited until seen by PCP (MAY RETURN TO USUAL ACTIVITIES GRADUALLY TOLERATED ) Call your provider Fever or Chills, Shortness of breath, Bleeding, Chest pain, Vomitting, Excessive diarrhea, Weakness (unilateral) Patient Instructions Follow-up Provider: Roberto Carlos Clifford MD Follow-up with PCP in: 1 week Additional Information CHECK B12 AND FOLATE LEVELS PENDING Abiel Zapien MD Sep 28, 2016 15:38
[2016-09-28] MEDS ORDERED: PREN1TAB25 PO (15:47)
--- NOTE | 2016-09-28 16:06 | NUR ---
Discharge Patient given discharge orders. Patient given medication list with written instructions when to take next dose of medication. Patient given informational packet. Patient IV removed fully intact and asymptomatic. Patient belongings packed and left with all belongings. Patient wheeled to wheelchair by RADIOCOMMUNICATIONS TECHNICIAN to main entrance.
--- NOTE | 2016-09-28 16:12 | NUR ---
Social Work: Discharge Data: pt is on day 3 of hospitalization. EMR reviewed, d/c orders are in. BUILDING ARCHITECTURAL DESIGNER called [facility] who states they will reopen with pt, no need for F2F. No further d/c planning needs. Assessment: Pt who is independent at baseline. Plan: Pt discharged home via POV with resume [facility], RN/PT. No further d/c planning needs. MOHAMUD Ham
--- NOTE | 2016-09-29 00:20 | PCM.DC.MED ---
Discharge Summary Date of Service Sep 28, 2016 Dates of Hospitalization Date of Hospital Admission Sep 25, 2016 at 00:34 Date of Discharge: Sep 28, 2016 Providers: Admitting Physician: Nilsa Duarte MD Primary Care Physician: Ajay,[facility] Residency Attending Physician: Nilsa Duarte MD Diagnosis at Time of Discharge Diagnosis at Time of Discharge Weakness, hypokalemia, acute renal failure. Procedures XRay, CTs & MRIs PROCEDURE: X-RAY CHEST ONE VIEW, PORTABLE ([id number]) INDICATIONS: cough TECHNIQUE: One view of the chest was acquired. COMPARISON: [facility], CR, XR CHEST 1VW (PORTABLE), 08/30/2016, 13 :21. FINDINGS: Surgical changes and devices: None. Lungs and pleura: No pleural effusions or pneumothorax. Lungs are difficult to accurately assess due convex rightward prominent scoliosis previously present. There may be stranding at the right and left lung bases near the heart but this may simply represent atelectasis associated with reduced inspiration and scoliosis. Mediastinum: Mediastinal contours appear normal. Heart size is normal. Bones and chest wall: No suspicious bony lesions. Overlying soft tissues appear unremarkable. IMPRESSION: Reduced inspiratory volume, prominent convex rightward scoliosis, stranding is mild at each lung base but this is more likely from atelectasis than from pneumonia, in my opinion. Dictated by: Jalen Jurado M.D. on 09/25/2016 at 8:24 Approved by: Jalen Jurado M.D. on 09/25/2016 at 8:24 ECG 12 Lead ECG Interpretation: normal sinus rhythm with a rate of 75 atrial premature complex LVH with secondary repolarization abnormality Cardiac Echo Impression Echocardiogram Report Name: NATALIE LUGO EStudmicheline Date: 08/14/2016 Height: 67 in Hospital Exam Location: [facility] Weight: 206 lb Gender: Female BSA: 2.0 m2 : 1930 Age: 86 yrs BP: 133/65 mmHg Reason For Study: ASSESS VALVES Ordering Physician: Performed By: Britney Knott Referring Physician: Ion Wilcox Interpretation Summary The left ventricle is normal in size. The ejection fraction is estimated to be 60-65%. The right ventricular systolic pressure is estimated at 54 mmHg assuming a right atrial pressure of 8 mm Hg. There is no significant valvular heart disease. No other echocardiographic abnormalities seen. This is a limited exam and no obvious valvular heart disease is noted. Compared with the prior exam, the LA looks grossly normal in size and not severely enlarged as reported on the prior exam. No other obvious changes noted. Brief History This is a 86-year-old female who presents with a several day history of increasing weakness. She denies any fevers or chills. She does admit to some urinary frequency and burning. She had previously been hospitalized here August 30 to for acute severe sepsis thought secondary to urinary tract infection. Her evaluation here includes labs which are significant for a low potassium level of 2.3 with a BUN of 33 a creatinine of 2.29. At previous visit her BUN was 25 and creatinine was 1.15 calculated GFR 64. She was also found to have a glucose of 195. Her old records does not appear to have a history of diabetes. White count today was 9.4 with 75% polys sodium level was 137 magnesium level was 2.0. Her urine analysis was consistent with a UTI revealing many white cells and many WBCs. Orlin patient is on furosemide and spironolactone for lower extremity swelling which might be the source of her hypokalemia. Patient was admitted to the hospitalist service for further evaluation and treatment. Hospital Course This is a 86-year-old female who presents with a several day history of increasing weakness. She denies any fevers or chills. She does admit to some urinary frequency and burning. She had previously been hospitalized here August 30 to for acute severe sepsis thought secondary to urinary tract infection. Her evaluation here includes labs which are significant for a low potassium level of 2.3 with a BUN of 33 a creatinine of 2.29. At previous visit her BUN was 25 and creatinine was 1.15 calculated GFR 64. She was also found to have a glucose of 195. Her old records does not appear to have a history of diabetes. White count today was 9.4 with 75% polys sodium level was 137 magnesium level was 2.0. Her urine analysis was consistent with a UTI revealing many white cells and many WBCs. Orlin patient is on furosemide and spironolactone for lower extremity swelling which might be the source of her hypokalemia. # Hypokalemia , acute, present on admission We will continue to replete with potassium chloride as needed -Continue to monitor daily. Continue on telemetry -Recheck labs in a.m. -Thought to be secondary to diuretic use # UTI, acute, present on admission secondary to Klebsiella pneumonia -We will continue to treat with IV Rocephin day #2 of 7-10 # Acute on chronic kidney disease, present on admission improving -IV fluids along with potassium chloride repletion to continue as needed -Hold diuretics for now -We will recheck labs in a.m., # Anemia, chronic, present on admission. However, worse today. -Stool negative for occult blood. -Will repeat. -Checked serum iron, TIBC, ferritin all of which were unremarkable. -We have ordered reticulocyte count, B12 level, and folate level and these are still pending -Patient to receive B12 1000 mg IM prior to discharge. This was administered after B12 and folate levels were ordered and are pending -We will also give vitamins which contain folate for home. # Nonalcoholic liver cirrhosis, chronic -Appears to be stable by looking at LFTs and clinical status -Serum ammonia level over 150. -History of elevated ammonia level, chronic, present on admission -We will repeat ammonia level in a.m. -Continue lactulose and rifaximin as tolerated. # DVT prophylaxis -We will discontinue subcutaneous prophylactic heparin due to decrease in hemoglobin and hematocrit. -We will place SCDs #CODE STATUS Patient is DNR/DNI Disposition: Patient is stable for discharge and will be discharged today after she received a vitamin B12 shot. Exam Vital Signs (Last) Date Time Temp Pulse Resp B/P Pulse Ox O2 Delivery O2 Flow Rate FiO2 09/28/16 12:54 36.5 59 20 108/58 100 Room Air Exam General: Patient is comfortable in no apparent distress. HEENT: Head is atraumatic normocephalic. Eyes: Pupils are equally round and reactive to light and accommodation. Extraocular muscles are intact. Sclera are white anicteric. Subconjunctival mucosa is pale. Ears and nose are unremarkable. Oropharynx: There is no mucosal lesions, there is no thrush, there is no pharyngitis. The oral mucosa is pale. Skin: There is pallor to the skin. Neck: Is supple, there are no nodes, or masses, or tenderness. Chest: Is clear to auscultation and percussion. There are no rales, rhonchi, wheezes or rubs. Heart: Rate, rhythm is regular. There is no murmur, rub or gallop. Abdomen: Good bowel sounds are present. Abdomen is soft, nontender, no organomegaly or masses were appreciated. Extremities: Are symmetrical and well perfused. There is no edema, there is no cellulitis, no rash. Neurologic: There are no focal neurological deficits. Cranial nerves II through XII are intact. There are no sensory or motor deficits. Psychiatric: Patients mood is calm and shows no sign of agitation. Genital: Deferred Rectal: Deferred Test 09/24/16 20:30 09/24/16 23:59 09/25/16 01:01 09/25/16 05:40 Hemoglobin A1c 5.8% (4.8-5.6) Hold Mares Top Tube Received (Received) Urine Color Yellow (YELLOW) Urine Appearance Hazy (CLEAR,HAZY) Urine pH 6.0 (5.0-8.0) Urine Specific [place] 1.010 (1.003-1.035) Urine Protein Negativemg/dL (NEG,TRACE) Urine Glucose (UA) Negativemg/dL (NEGATIVE) Urine Ketones Negativemg/dL (NEGATIVE) Urine Occult Blood Trace (NEGATIVE) Urine Nitrite Positive (NEGATIVE) Urine Bilirubin Negative (NEGATIVE) Urine Urobilinogen Normalmg/dL (NORMAL) Urine Leukocyte Esterase Moderate (NEGATIVE) Urine RBC 0-2/hpf (0-2) Urine WBC >50/hpf (0-5) Urine Epithelial Cells Few/hpf (NONE-MOD) Urine Crystals None seen (NONE SEEN) Urine Bacteria Many/hpf (NONE-FEW) Urine Hyaline Casts None/lpf (NONE) Urine Granular Casts None seen (NONE SEEN) Urine Waxy Casts None seen (NONE SEEN) Urine Red Blood Cell Casts None seen (NONE SEEN) Urine White Blood Cell Casts None seen (NONE SEEN) Urine Mucus None seen (None Seen) Urine Trichomonas None seen (NONE SEEN) Urine Yeast None (NONE SEEN) Urinalysis Comment None Urine Culture Reflexed Indicated Ammonia 157ug/dL (18-53) Troponin T 0.022ug/L (0.0-0.011) Test 09/25/16 12:15 09/26/16 05:40 09/27/16 06:42 09/28/16 06:00 Prothrombin Time 14.5sec (8.1-12.5) Prothromb Time International Ratio 1.35ratio Lactic Acid Level 3.8mmol/L (0.4-2.0) Phosphorus Level 2.1mg/dL (2.5-4.9) Magnesium Level 1.6mg/dL (1.6-2.6) White Blood Count 8.5th/mm3 (3.8-10.1) Red Blood Count 2.46mil/mm3 (3.90-5.20) Hemoglobin 8.0g/dL (12.0-15.6) Hematocrit 25.0% (35.0-46.0) Mean Corpuscular Volume 101.6fL (81-100) Mean Corpuscular Hemoglobin 32.5pg (27.0-35.0) Mean Corpuscular Hemoglobin Concent 32.0% (32.0-37.0) Red Cell Distribution Width 14.8% (12.3-15.4) Platelet Count 111bil/L (150-400) Neutrophils (%) (Auto) 66.9% (40-74) Lymphocytes (%) (Auto) 10.3% (14-46) Monocytes (%) (Auto) 13.5% (4-12) Eosinophils (%) (Auto) 8.1% (0-5) Basophils (%) (Auto) 0.6% (0-3) Reticulocyte Count,Calculated 3.6% (0.6-2.6) Sodium Level 131mEq/L (134-144) Potassium Level 4.0mEq/L (3.5-5.2) Chloride Level 98mEq/L (97-108) Carbon Dioxide Level 21mmol/L (18-29) Blood Urea Nitrogen 32mg/dL (8-27) Creatinine 1.81mg/dL (0.57-1.00) Estimat Glomerular Filtration Rate 38mL/min (>59) Glucose Level 118mg/dL (60-99) Calcium Level 8.0mg/dL (8.5-10.1) Iron Level 42ug/dL (35-150) Total Iron Binding Capacity 198ug/dL (250-450) Percent Iron Saturation 21%sat (15-50) Unsaturated Iron Binding 156.1ug/dL Ferritin 58ng/mL (13-150) Total Bilirubin 1.0mg/dL (0.0-1.2) Aspartate Amino Transf (AST/SGOT) 50U/L (0-50) Alanine Aminotransferase (ALT/SGPT) 23U/L (0-32) Alkaline Phosphatase 182U/L (25-165) Total Protein 5.4g/dL (6.4-8.4) Albumin 2.4g/dL (3.4-5.0) Microbiology Results Name: NATALIE LUGO Age/Sex: 86/F Attend Dr: Nilsa Duarte MD Acct: [id number] Unit: [id number] Status: ADM IN Location: [facility] 3005-1 Re09/25/16 Disch: Specimen: [id number] Collected: 09/24/16 Status: COMP Req#: [id number] Received: 09/24/16 Source: RANDOM Sp Desc : Subm Dr: LETI,SILVA GRAVES Ordered: URINE CULT Procedure Result Verified Site Microbiology SHRUTI CULT URINE Final 09/27/16-0835 Organism 1 KLEBSIELLA PNEUMONIAE U COLONY COUNT/QUANTITY >100,000 CFU/ml KLEBSIELLA PNEUMONIAE Cefazolin-predicts results for the oral agents, cefaclor,cefdinir, cefpodoximen, cefprozil, cefuroximne axetil, cephalexin and loracarbed when used for therapy of uncomplicated UTI's due to E. coli, K. pneumoniae, and Proteus mirabilis. Cefpodoxime, cefdinir and cefuroxime axetil may be tested individually because some isolates may be susceptible to these agents while testing resistant to cefazolin. (CLSI F112-E77 pg 53) 1. KLEBSIELLA PNEUMONIAE M.I.C Interp --------- ------ * AMOXICILLIN/CLAVULATE <=2 S * AMPICILLIN >=32 R * CEFAZOLIN (CEPHALOSPORIN) UTI 4 S * CEFEPIME <=1 S * CEFTRIAXONE <=1 S * CEFUROXIME SODIUM 4 S * CIPROFLOXACIN <=0.25 S * ERTAPENEM <=0.5 S * GENTAMICIN <=1 S * IMIPENEM <=1 S * LEVOFLOXACIN <=0.12 S * NITROFURANTOIN 32 S * TETRACYCLINE <=1 S * TOBRAMYCIN <=1 S * TRIMETHOPRIM/SULFAMETHOXAZOLE <=20 S Discharge Medications Discharge Medications Metoprolol Succinate ER (Metoprolol Succinate ER) 25 Mg Tab.er.24h 12.5 TAB PO BID (Reported) Mineral Oil/Petrolatum,White (Refresh P.m. Ointment) 3.5 Gm Oint...g. 1 APPLIC BOTH_EYES HS (Reported) Omeprazole (Omeprazole) 20 Mg Capsule.dr 20 MG PO TIDAC (Reported) Vit#96/Ferrous Fum/FA ( Tablet) 1 Each Tablet 1 TABLET PO DAILY Prescribed by: REBECA ZAPIEN MD Spironolactone (Spironolactone) 50 Mg Tablet 50 MG PO DAILY (Reported) Torsemide (Torsemide) 20 Mg Tablet 20 MG PO BID (Reported) As needed Fexofenadine (Padma Allergy) 180 Mg Tablet 180 MG PO DAILY PRN PRN For Congestion (Reported) Hydrocortisone (Cortizone-10) 99 Gm Lotion 1 APPLIC TOP DAILY PRN PRN skin irritation (Reported) apply to affected area Hypromellose (Genteal Mild To Moderate) 25 Ml Drops 1 GTT BOTH_EYES BID PRN PRN For Eye Irritation (Reported) Lactulose (Lactulose) 10 Gm/15 Ml Solution 10 GM PO ASDIRECTED PRN PRN 2 stool per day take one to three times a day with goal of at least 2 bowel movements daily Prescribed by: FRANK DOMINGUEZ MD Propylene Glycol/Peg 400 (Systane Gel Eye Drops) 10 Ml Drops.gel 1 GTT BOTH_ EYES DAILY PRN PRN For Eye Irritation (Reported) Miscellaneous Medications Rifaximin (Xifaxan) 550 Mg Tablet 550 MG PO (Reported) Followup Plan Disposition: Patient is being discharged home with her Discharge Diet: Heart Healthy Discharge Activity: Limited until seen by PCP (MAY RETURN TO USUAL ACTIVITIES GRADUALLY TOLERATED) Follow-up Provider: Roberto Carlos Clifford MD Follow-up with PCP in: 1 week Time spent Time spent on discharging this patient was greater than 35 minutes , over half of which was involved in counseling and coordination of care. Abiel Zapien MD Sep 29, 2016 00:20
== END 2016-09-28 16:10 | disposition home health service (06) | DRG 690 ==
LOC: SED 19:52 → MPC 09-25 00:34
PROVIDERS: ADMIT Specialist; ATTEND Specialist
DX: N39.0 Urinary tract infection, site not specified (principal); N17.9 Acute kidney failure, unspecified; E87.6 Hypokalemia; B96.1 Klebsiella pneumoniae [K. pneumoniae] as the cause of diseases classified elsewhere; N18.3 Chronic kidney disease, stage 3 (moderate); D64.9 Anemia, unspecified; K74.69 Other cirrhosis of liver; Z66 Do not resuscitate; I25.2 Old myocardial infarction

== ENCOUNTER 2016-11-05 11:30 | Inpatient (IN) | payer MEDICARE, OTHER ==
[~2016-11-05] VITALS: Ht 175.3 cm; Wt 88.6 kg
[2016-11-05] VITALS (9 sets, daily range): BP systolic 109–133; BP diastolic 44–76; PULSE 41–47; RESP 13–25; O2SAT 98–100
[~2016-11-05 11:30] MED LIST changes: -FURO40TA4 PO; +PREN1TAB25 PO; +RIFA550T3 PO; +TORS20TA3 PO
[2016-11-05] MEDS ORDERED: 0.9% Sodium Chloride 500 ML IV ONE (12:05)
[2016-11-05 12:08] LABS: BASOPHILS % (AUTO) 0.2 % (0-3); EOSINOPHILS % (AUTO) 5.4 % (0-5); MONOCYTES % (AUTO) 9.5 % (4-12); Mean Corpuscular Hemoglobin 32.1 pg (27.0-35.0); Mean Corpuscular Volume 95.2 fL (81-100); NEUTROPHILS % (AUTO) 63.9 % (40-74); Platelet Count 123 bil/L (150-400)
--- NOTE | 2016-11-05 12:14 | DRSVH ---
PROCEDURE: X-RAY CHEST ONE VIEW, PORTABLE ([id number]) INDICATIONS: BRADYCARDIA TECHNIQUE: One view of the chest was acquired. COMPARISON: [facility], CR, XR CHEST 1VW (PORTABLE), 09/25/2016, 7:25. FINDINGS: Surgical changes and devices: None. Lungs and pleura: No pleural effusions or pneumothorax. No acute consolidation. There is a small n odular opacity peripherally in the left lung base which appears unchanged. There are adjacent linear opacities likely representing atelectasis. There is mild pulmonary vascular prominence suggesting m ild edema. Mediastinum: Mediastinal contours appear unchanged. Heart size is enlarged. Bones and chest wall: No suspicious bony lesions. Overlying soft tissues appear unremarkable. IMPRESSION: 1. Pulmonary vascular prominence suggesting mild edema. Dictated by: Enoch Canseco M.D. on 11/05/2016 at 12:11 Approved by: Enoch Canseco M.D. on 11/05/2016 at 12:12
[2016-11-05] MEDS ORDERED: Lactulose 20 Gm/30 mL 30 mL Syrup TUBE ONE (12:35)
[2016-11-05 12:41] LABS: Magnesium 2.6 mg/dL (1.6-2.6)
--- NOTE | 2016-11-05 12:42 | ED.REPORT ---
HPI-General Illness Date of Service Nov 05, 2016 ED Provider: Alex Bay S DO 86 year old female who presents to the ED via EMS for vomiting for the past 12 hours. Associated symptoms include weakness and nausea. She is bradycardic, cool to touch, blood sugar is 135 en route. She is given Zofran [employer]. Pt is currently on Metoprolol, torsemide and lactulose. She discontinued taking her lactulose due to constipation. Pt's relays that their caretakers told her that if, "she wasn't having bowel movements she shouldn't take her medication." Pt denies hematochezia. She was seen at the ED for the same symptoms one month ago due to acute renal failure. Pt is a poor historian. Nursing Notes Stated Complaint: WEAKNESS/NAUSEA/VOMITING Chief Complaint: General Complaint Nursing Notes Reviewed: Yes Allergies: Coded Allergies: [employer] (Verified Allergy, Severe, Rash,Itching,SOB, ) MUSHROOM (Verified Allergy, Severe, Rash,Itching,SOB, 08/30/16) shellfish derived (Verified Allergy, Severe, Headache, 08/30/16) Oily Fish (Verified Allergy, Intermediate, Hives, migraines, 08/30/16) Penicillins (Verified Allergy, Intermediate, rash, 08/30/16) quinine (Verified Allergy, Intermediate, rash, 08/30/16) Uncoded Allergies: SHELL FISH (Allergy, Intermediate, abd pain, rash, 03/20/16) migrains Scheduled Metoprolol Succinate ER (Metoprolol Succinate ER) 25 Mg Tab.er.24h 12.5 TAB PO BID Mineral Oil/Petrolatum,White (Refresh P.m. Ointment) 3.5 Gm Oint...g. 1 APPLIC BOTH_EYES HS Omeprazole (Omeprazole) 20 Mg Capsule.dr 20 MG PO TIDAC Vit#96/Ferrous Fum/FA ( Tablet) 1 Each Tablet 1 TABLET PO DAILY Spironolactone (Spironolactone) 50 Mg Tablet 50 MG PO DAILY Torsemide (Torsemide) 20 Mg Tablet 20 MG PO BID Scheduled PRN Fexofenadine (Padma Allergy) 180 Mg Tablet 180 MG PO DAILY PRN PRN For Congestion Hydrocortisone (Cortizone-10) 99 Gm Lotion 1 APPLIC TOP DAILY PRN PRN skin irritation apply to affected area Hypromellose (Genteal Mild To Moderate) 25 Ml Drops 1 GTT BOTH_EYES BID PRN PRN For Eye Irritation Lactulose (Lactulose) 10 Gm/15 Ml Solution 10 GM PO ASDIRECTED PRN PRN 2 stool per day take one to three times a day with goal of at least 2 bowel movements daily Propylene Glycol/Peg 400 (Systane Gel Eye Drops) 10 Ml Drops.gel 1 GTT BOTH_ EYES DAILY PRN PRN For Eye Irritation Miscellaneous Medications Rifaximin (Xifaxan) 550 Mg Tablet 550 MG PO General Time Seen by MD: 11:44 Chief Complaint Vomiting Hx Obtained From: Patient, EMS Arrived By: Ambulance Sudden in Onset?: Yes Onset Occurred: 1 day ago Symptom Duration: Since onset Severity: Current: No pain currently Past Medical History Past Medical History Notes: Admit July 27 through 07/31/2016 for severe sepsis, UTI, acute on chronic kidney injury Code status: DNR Past Medical History 1. 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 Chronic macrocytic anemia b. Splenomegaly and chronic thrombocytopenia 2. Hypertension, controlled 3. History of UTIs, recent UTI 07/27/16 culture positive Klebsiella, ampicillin resistant 4. 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. 5. Right thyroid nodule. 6. Anemia with microcytosis. 7. Depression. 8. History of basal cell carcinoma of the forehead. 9. Recent admission with septic shock due to acute cholecystitis managed medically, complicated by TAMELA 10. Coronary artery disease, remote myocardial infarction. 11. Chronic knee pain 12. OK 13. Fatty liver 14. UTI Past Surgical History Reports: Hysterectomy Smoking History Never Smoker Social History Alcohol Use: Denies alcohol use Drug Use: Denies drug use Other Social History: Good social support, Local resident Ambulatory Status Independent Review of Systems Full Review of Systems Constitutional: Reports: Weakness - generalized GI: Reports: Nausea, Vomiting, Denies: Hematochezia Complete sys rev & neg: except as marked. Physical Exam Vital Signs Vital Signs Date Time Temp Pulse Resp B/P Pulse Ox O2 Delivery O2 Flow Rate FiO2 11/05/16 14:11 41 25 111/45 100 Nasal Cannula 2 11/05/16 12:49 41 18 119/44 98 Nasal Cannula 2 11/05/16 11:41 35.8 44 13 129/45 100 Nasal Cannula 2 Initial VS: Reviewed Respiratory: Breath sounds normal, Clear to auscultation, No respiratory distress Abdomen / GI: Soft, Non-tender, No guarding, No rebound, No distention Back: No CVA tenderness Lymphatic: No lymphadenopathy Extremities: Vascular intact, Neuro intact, No swelling, No tenderness Skin: Warm, Dry, No cyanosis Alertness: Positive: Confused, Disoriented, Responds to verb stimuli Appearance / Presentation: Positive: Pale asterixis Head / Eyes: Atraumatic, Normocephalic, PERRL, EOMI Heart Rate / Rhythm: Positive: Bradycardia Interpretation & Diagnostics Lab Results Interpretation Result Diagram: 11/05/16 1145 11/05/16 1145 Test 11/05/16 11:45 11/05/16 12:07 White Blood Count 5.4th/mm3 (3.8-10.1) Red Blood Count 3.36mil/mm3 (3.90-5.20) Hemoglobin 10.8g/dL (12.0-15.6) Hematocrit 32.0% (35.0-46.0) Mean Corpuscular Volume 95.2fL (81-100) Mean Corpuscular Hemoglobin 32.1pg (27.0-35.0) Mean Corpuscular Hemoglobin Concent 33.8% (32.0-37.0) Red Cell Distribution Width 16.8% (12.3-15.4) Platelet Count 123bil/L (150-400) Neutrophils (%) (Auto) 63.9% (40-74) Lymphocytes (%) (Auto) 20.6% (14-46) Monocytes (%) (Auto) 9.5% (4-12) Eosinophils (%) (Auto) 5.4% (0-5) Basophils (%) (Auto) 0.2% (0-3) Sodium Level 134mEq/L (134-144) Potassium Level 4.1mEq/L (3.5-5.2) Chloride Level 94mEq/L (97-108) Carbon Dioxide Level 21mmol/L (18-29) Blood Urea Nitrogen 54mg/dL (8-27) Creatinine 2.38mg/dL (0.57-1.00) Estimat Glomerular Filtration Rate 28mL/min (>59) Glucose Level 134mg/dL (60-99) Calcium Level 9.9mg/dL (8.5-10.1) Magnesium Level 2.6mg/dL (1.6-2.6) Total Bilirubin 2.1mg/dL (0.0-1.2) Aspartate Amino Transf (AST/SGOT) 84U/L (0-50) Alanine Aminotransferase (ALT/SGPT) 42U/L (0-32) Alkaline Phosphatase 200U/L (25-165) Troponin T 0.036ug/L (0.0-0.011) Total Protein 6.7g/dL (6.4-8.4) Albumin 3.2g/dL (3.4-5.0) Ammonia 351ug/dL (18-53) ECG Interpretation ECG Interpretation: sinus bradycardia (rate 44) Time: 11:30 Interpreted by: ED physician X-Ray Chest Interpretation Chest Xray Interpretation: IMPRESSION: 1. Pulmonary vascular prominence suggesting mild edema. Dictated by: Enoch Canseco M.D. on 11/05/2016 at 12:11 Approved by: Enoch Canseco M.D. on 11/05/2016 at 12:12 View: Portable Interpretation / Wet Read by: Interpret - Radiologist Re-Eval/Medical Decision Med Decision/Clinical Course Hepatic encephalopathy likely due to med noncompliance, bradycardia there does not seem to be symptomatic, blood pressure stable. We will plan to admit for clinical improvement. Counseled Regarding: Diagnosis, Lab results, Need for admission Discharge & Departure Primary Impression: Encephalopathy, hepatic Disposition: ADMITTED TO HOSPITAL Discharge Condition All VS Reviewed: Yes Condition: Stable Referrals: [facility] Residency Clinic (PCP) Scribe Attestation Portion of this note were transcribed by Kyrie Rhodes. I, Dr. Bay, personally performed the history, physical exam, and medical decision-making: I reviewed and confirmed the accuracy for the information in the transcribed note. Signed by: cheri Serra, 11/05/16 0930 copies to: [facility] Alex Bay DO Nov 05, 2016 12:42 KYRIE RHODES Nov 05, 2016 12:57
[2016-11-05 12:46] LABS: TROPONIN T 0.036 ug/L (0.0-0.011)
--- NOTE | 2016-11-05 14:58 | DRSVH ---
PROCEDURE: CT BRAIN WITHOUT CONTRAST ([id number]) INDICATIONS: altered mental status TECHNIQUE: Noncontrast 4.5 mm thick angled axial sections acquired from the foramen magnum to the vertex, with c oronal reformats. COMPARISON: [facility], CT, CT BRAIN WO CON, 07/27/2016, 11:51. FINDINGS: Image quality: Excellent. CSF spaces: Basal cisterns are patent. No extra-axial fluid collections. The ventricles are symmet akiko in size. There is moderate cerebral volume loss, with resultant ventricular and sulcal prominenc e. Brain: No intracranial hemorrhage, mass, or mass effect. There are scattered subcortical, periven tricular and deep white matter hypodensities which are nonspecific but may reflect moderate to severe chronic small vessel ischemic changes. There is intracranial internal carotid artery atherosclerosi s. Skull and face: Calvarium and visualized facial bones appear intact, without suspicious lesions. Sinuses: Visualized sinuses demonstrate moderate to severe mucosal thickening in the left maxillary sinus and mild thickening in the right maxillary sinus. There is high density redemonstrated within the left maxillary sinus likely representing sequelae of chronic sinus disease. Mild mucosal thicken ing also demonstrated in the left sphenoid sinus. The mastoid air cells are clear. IMPRESSION: 1. No definite acute intracranial abnormality. 2. Diffuse white matter hypodensities likely representing moderate to severe chronic small vessel is chemic changes . A superimposed acute process may be obscured. If clinical concern persists, recomm end further evaluation with MRI. 3. Moderate cerebral volume loss. 4. Sinus mucosal disease redemonstrated, most prominent within the left maxillary sinus. Dictated by: Enoch Canseco M.D. on 11/05/2016 at 14:53 Approved by: Enoch Canseco M.D. on 11/05/2016 at 14:57
[2016-11-05] MEDS ORDERED: Ondansetron 2 mg/mL 2 mL Inj IVPUSH PRN (15:00)
[2016-11-05] MEDS ORDERED: Polyethylene Glycol (PEG) 17 Gm Powder PO PRN (15:00)
[2016-11-05] MEDS ORDERED: Alum-Mag Hydrox-Simeth 30 mL Suspension PO PRN (15:00)
[2016-11-05] MEDS ORDERED: PETR3.5O OP (15:05)
[2016-11-05] MEDS ORDERED: NAPR220C11 PO (15:05)
[2016-11-05] MEDS ORDERED: URSO300C2 PO (15:05)
[2016-11-05] MEDS ORDERED: PROP1DRO OP (15:05)
[2016-11-05] MEDS ORDERED: DIME237L2 TP (15:05)
[2016-11-05] MEDS ORDERED: SPIR100T3 PO (15:05)
[2016-11-05] MEDS ORDERED: LACT10SO PO (15:05)
[2016-11-05] MEDS ORDERED: Lactulose 10 Gm/15 mL 473 mL Solution PO PRN (15:35)
--- NOTE | 2016-11-05 15:56 | PCM.HPMED ---
Subjective Date of Service Nov 05, 2016 Primary Provider: Admitting Physician: Miguelito Jeronimo MD Primary Care Physician: Ajay,[facility] Residency Attending Physician: Miguelito Jeronimo MD Chief Complaint: "confusion" History of Present Illness: Ms. Beckie Oconnor is an 86 year old woman with history of non-alcoholic liver cirrhosis who presented today to the emergency department via EMS for confusion. Her went to a medical appointment for himself this morning and when he came home he found her on the floor. He reports that she was confused and that this has happened in the past. She has not taken her lactulose for the past couple of days because she has been having regular bowel movements, and she did not want to have diarrhea. She has weakness. She had nausea this morning but denies vomiting. She denies abdominal pain currently but reported abdominal earlier in the day. She denies having any pain. She does not have dysuria. She is a poor historian. In the emergency department, she had a chest x-ray that showed mild pulmonary edema and brain CT that showed no definite acute intracranial abnormality. It also had diffuse white matter hypodensities likely representing moderate to severe chronic small vessel ischemic changes. A superimposed acute process may be obscured. If clinical concern persists, recommend further evaluation with MRI. History obtained from patient, patient's , and patient's EHR. Review of Systems: A comprehensive review of systems was conducted with the patient and found to be negative except as above in the History of Present Illness. Allergies Coded Allergies: Bell And Derivatives (Verified Allergy, Severe, Rash,Itching,SOB, ) MUSHROOM (Verified Allergy, Severe, Rash,Itching,SOB, 11/05/16) shellfish derived (Verified Allergy, Severe, Headache, 11/05/16) Oily Fish (Verified Allergy, Intermediate, Hives, migraines, 11/05/16) Penicillins (Verified Allergy, Intermediate, rash, 11/05/16) quinine (Verified Allergy, Intermediate, rash, 11/05/16) Uncoded Allergies: SHELL FISH (Allergy, Intermediate, abd pain, rash, 03/20/16) migrains Home Medications Dimethicon 1% lotion topically BID PRN Fexofenadine 180 mg PO daily as needed for congestion Cortisone 10 lotion as needed Lactulose 10 gm as needed to achieve 2 stools/day Metoprolol succinate 12.5 mg PO BID Refresh PM ointment ophtalmic daily PRN Naproxen soidum 220 mg PO BID PRN pain Omeprazole 20 mg PO daily Systane Eye Drops daily as needed Rifaximin 550 mg PO BID Spironolactone 100 mg PO daily Torsemide 20 mg PO BID Ursodiol 600 mg PO BID PMH Nonalcoholic liver cirrhosis (SIERRA) with ascites and bilateral lower extremity edema Chronic macrocytic anemia Splenomegaly and chronic thrombocytopenia Hypertension History of UTIs, recent UTI 07/2016 culture positive Klebsiella, ampicillin resistant 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 Right thyroid nodule Anemia with microcystosis Depression History of basal cell carcinoma of forehead Recent admission with septic shock due to acute cholecystitis managed medically complicated by TAMELA Chronic knee pain Fatty liver Surgical History Hysterectomy Family History Mother with a history of [place] causing at age 70 Social History Hx Alcohol Use: No Hx Substance Use: No Hx Tobacco Use: No Smoking Status: Never Smoker Living Arrangement: with Family Exam Vital Signs Vital Sign - Last Date Time Temp Pulse Resp B/P Pulse Ox O2 Delivery O2 Flow Rate FiO2 11/05/16 14:41 35.8 41 25 111/45 100 Nasal Cannula 2 Exam General: Answers questions and follows commands. Awake and oriented to person and to place. Disoriented to time. No acute distress, well-developed. HEENT: Dried blood on left episcopalian. Normocephalic. External ears without defect. Pupils equal, round, and reactive to light and accommodation. Mildly icteric sclerae. Moist conjunctivae and no lid lag. Oropharynx free of erythema and cobble stoning with moist mucosa. Neck: Supple with full range of motion. No jugular venous distension. No bruits. No lymphadenopathy or thyromegaly. Cardiovascular: Regular rate and rhythm with no murmurs, rubs, or gallops appreciated Pulmonary: Clear to auscultation bilaterally with no crackles, wheezes, or rhonchi. Normal respiratory effort with no use of accessory muscles. Abdomen: Obese. Diffusely tender. Splenomegaly. Bowel tones present. Soft, nondistended. No masses appreciated. Extremities: Bilateral 2+ pitting edema extending to knees. Bilateral ecchymoses on forearms with excoriation on right forearm. No clubbing, cyanosis , or lymphadenopathy appreciated. Skin: Normal temperature, turgor, and texture; no rash, ulcers, or subcutaneous nodules appreciated. Neurological: Cranial nerves grossly intact. Normal muscle strength, tone, and bulk. Reflexes, coordination, and sensory function within normal limits. Psychiatric: Normal mood and affect. Alert and oriented to person and to place. Lab and Diagnostics Result Diagram: 11/05/16 1145 11/05/16 1145 X-Rays, CTs and MRIs PROCEDURE: CT BRAIN WITHOUT CONTRAST IMPRESSION: 1. No definite acute intracranial abnormality. 2. Diffuse white matter hypodensities likely representing moderate to severe chronic small vessel ischemic changes . A superimposed acute process may be obscured. If clinical concern persists, recommend further evaluation with MRI. 3. Moderate cerebral volume loss. 4. Sinus mucosal disease redemonstrated, most prominent within the left maxillary sinus. Approved by: Enoch Canseco M.D. on 11/05/2016 at 14:57 PROCEDURE: X-RAY CHEST ONE VIEW, PORTABLE IMPRESSION: 1. Pulmonary vascular prominence suggesting mild edema. Approved by: Enoch Canseco M.D. on 11/05/2016 at 12:12 Assessment & Plan 1. Altered mental status (hepatic encephalopathy), recurrent, present on admission. Active. -Probable recurrent hepatic encephalopathy secondary to SIERRA -Patient has not taken lactulose for the past few days -Brain CT did not show any acute changes. Pt does not have any focal neurological deficits currently. -UA as below see #4 -Ammonia level elevated at 351 -Monitor for changes in mental status and for focal neurological deficits -Resumed lactulose at 10 gm TID for now and will monitor pt's mental status and for diarrhea in order to make adjustments to dose -Blood cultures pending 2. SIERRA with cirrhosis, chronic, present on admission. Active. -See #1 above -Previous GI consultation in 02/2014 -Last CT abdomen/pelvis 07/2016 showed that the liver is shrunken and nodular, indicating cirrhosis. Multiple calcifications within the spleen are present, indicating remote granulomatous disease. Gallbladder grossly unremarkable. -Total bilirubin 2.1,AST 84, ALT 42, alkaline phosphatase 200, ammonia 351 today -Lactulose resumed as above -Continue rifaximin -Hold torsemide and ursodiol for now and will monitor mental status and liver function -Monitor liver function tests tomorrow morning -NPO -Stool guaiac test ordered 3. Acute kidney injury on chronic kidney disease (stage 3), present on admission. Active. -Creatinine 2.38, and it was 1.81 on 09/28/2016 -Possibly secondary to hepatorenal syndrome and worsening hepatic function see # 2 above -Continue to monitor with CMP in the morning -Holding IV fluids for now as patient has mild pulmonary edema and bilateral leg edema 4. Urinary tract infection, recurrent. Present on admission. Active. -WBC 5.4, within normal limits and pt is afebrile but 35.8 degrees C, which is less than 36 degrees C. -UA shows positive nitrite and moderate leukocyte esterase, last urine culture revealed Klebsiella which was pansensitive except for ampicillin. -Urine culture pending -Will hold starting antibiotics until urine culture is completed as her AMS is likely secondary to hepatic encephalopathy as discussed above. In the past, she has had a Klebsiella UTI, and at another time, a Martina albicans UTI. -Monitor vital signs and WBC for possible SIRS or sepsis 5. Sinus bradycardia, acute, present on admission. Active. -Hold patient's home metoprolol -Continue to monitor 6. Elevated troponin, present on admission. Active. This may represent demand ischemia. -Troponin 0.036 today, in the past 0.033 09/2016 -Repeat troponin in the morning 7. Hypertension, chronic. -Continue spironolactone -Hold metoprolol and torsemide as above -Continue to monitor 8. Chronic anemia and thrombocytopenia -Hgb 10.8, HCT 32 and platelets 123,000 both are stable compared to prior hospitalizations -Monitor with CBC in the morning Zofran when necessary for nausea and vomiting. Patient Status: Patient is admitted under inpatient status with expected length of stay greater than 2 midnights due to severity of presenting symptoms, risk of adverse event, and complexity of treatment plan. Pain Evaluation: Adequate Pain Control VTE Prophylaxis: Sub-Q Heparin (Unfractionated), SCDs Resuscitation Status: DNR/DNI:Do Not Resuscitate/Intubate Time spent 50 minutes Attending Statement Patient seen and examined with house staff. Agree with all attached documentation. Amanda Bonilla DO Nov 05, 2016 15:40 Miguelito Jeronimo MD Nov 06, 2016 08:07
[2016-11-05 15:59] LABS: APPEARANCE,URINE HAZY (CLEAR,HAZY); COLOR,URINE YELLOW (YELLOW); PH,URINE 5.5 (5.0-8.0)
[2016-11-05 16:00] LABS: OCCULT BLOOD,URINE NEGATIVE (NEGATIVE); UROBILINOGEN,URINE NORMAL (NORMAL)
[2016-11-05] MEDS ORDERED: PETROLATUM TOPICAL PRN (16:00)
--- NOTE | 2016-11-05 16:30 | NUR ---
Admit Pt arrived to room 3019 from ED around 1510. Able to transfer to BSC, then bed, 2-person assist. reports pt is much weaker than normal; that pt is usually able to ambulate indep and provide own ADLs. Pt alert and oriented to place and person. Falls risk, bed alarm on. Refuses flu vaccine. Urine sent to lab. Med rec completed by admit RN. Tele: sinus bradycardia, 40s; pt asymptomatic. able to help w/ medical history.
[2016-11-05] MEDS: Lactulose 20 Gm/30 mL 30 mL Syrup PO SCH (22:31)
[2016-11-05] MEDS: Heparin 5,000 Unit/mL Inj SUBQ SCH (22:35)
[2016-11-06] VITALS (9 sets, daily range): BP systolic 91–124; BP diastolic 36–62; PULSE 44–60; RESP 16–18; O2SAT 95–98
--- NOTE | 2016-11-06 04:37 | NUR ---
Activity, Tele: Pt is able to get up to the BSC with one assist and the FWW. Alert and oriented to person, place and year. Tele has been sinus alba 40s-50s, did dip down to 38 x1; non-sustained.
[2016-11-06] MEDS: Pantoprazole 40 mg ER24 Tablet PO SCH (05:56)
[2016-11-06 07:37] LABS: BASOPHILS % (AUTO) 0.5 % (0-3)
[2016-11-06 07:44] LABS: EOSINOPHILS % (AUTO) 4.8 % (0-5); MONOCYTES % (AUTO) 13.6 % (4-12); Mean Corpuscular Hemoglobin 31.8 pg (27.0-35.0); Mean Corpuscular Volume 97.1 fL (81-100); NEUTROPHILS % (AUTO) 54.8 % (40-74); Platelet Count 84 bil/L (150-400)
[2016-11-06] MEDS: Lactulose 20 Gm/30 mL 30 mL Syrup PO SCH ×3 (08:36→22:01)
[2016-11-06] MEDS: Heparin 5,000 Unit/mL Inj SUBQ SCH ×2 (08:37→22:01)
[2016-11-06 09:00] LABS: TROPONIN T 0.032 ug/L (0.0-0.011)
[2016-11-06 10:45] LABS: INR 1.37 ratio
--- NOTE | 2016-11-06 12:37 | NUR ---
Social Work Assessment: SW met with patient at bedside to discuss discharge plan. Patient is an 86 year old female admitted on 11/05/16 for hepatic encephalopathy. Patient payer as Medicare and [email or web address]. Patient has no halfway disability nor VA benefits. Patient PCP as MD Keith. Patient states residing in [facility] in a one story home with . Patient states having no previous SNF history. Patient stats having a walker and raised toilet seat at home. Patient states being current with HHC services with [facility]. Patient states choice to resume services with [facility] at discharge. Choice list offered and declined. PT ordered per discussion in rounds. SW provided access to [facility] and left voice mail message for HHC rep Farhad to discuss active services. SW will continue to follow. PLAN: Home with and current with [facility]. Access provided. PT ordered, SW will continue to follow for discharge needs pending further clinical course Art MALLORY Addendum: 11/06/16 at 1242 by MYRIAM GALEANO Amended: Links added.
--- NOTE | 2016-11-06 12:42 | NUR ---
Case Management: Explained IMM, patient signed, copy given to patient, orig in hard chart. CPerryRNCIZA. Addendum: 11/06/16 at 1244 by CLOVER SNYDER CM Date and time IMM signed-11/06/16 at 10:05am.
--- NOTE | 2016-11-06 14:34 | NUR ---
NUTRITION ASSESSMENT ASSESS: Pt is an 86 yo female admitted w/ hepatic encephalopathy and history of SIERRA w/ ascites. Per notes, pt stated abdominal pain and nausea prior to admission. Pt is on lactulose at home but discontinued medication a couple days ago d/t bowel regularity and wanting to avoid diarrhea. Per notes, pt has TAMELA on Stage III CKD. Pt has slight pulmonary and bilateral lower leg edema. PMHX: SIERRA w/ ascites and bilateral lower extremity edema, chronic macrocytic anemia, splemomegaly and chronic thrombocytopenia, HTN, Hx of UTIs, CAD w/ Hx of CT, right thyroid nodule, anemia w/ microcystosis, Depression, Hx of basal cell carcinoma, recent admission for septic shock, chronic knee pain, fatty liver, hysterectomy, Stage III CKD LABS: Reviewed. K 3.4, BUN 53, Correctional Corporal 2.19, Gluc 100, Total Bilirubin 2.1, AST 57, Alb 2.5, Lipase 85 MEDS: Reviewed. Spirinolactone. GI: No BM noted. SKIN: Jayant 17 - redness noted on sacrum. CURRENT WT: 84 kg (8.9% wt loss from prior admission, likely fluid related) BMI: 27.3 kg/m2 Previous Admit Wt (08/30/16): 92.2 kg DIET: Renal - PO intake 100% EST. NEEDS: TAMELA, Liver Disease Kcals: 7083-4816 kcal/day (25-35 kcal/kg BW) Pro: 55-90 g/day (0.6-1.0 g/kg BW) NUTRITION DIAGNOSIS: 1.) Altered nutrition-related lab values related to CKD and SIERRA as evidenced by elevated BUN, Correctional Corporal, Bilirubin and AST values. NUTRITION INTERVENTION: 1.) Continue current diet as ordered. MONITOR / EVAL: Diet tolerance, diet adv, labs, wt, GI, nutrition status, POC. Will continue to monitor per moderate nutritional risk guidelines. Addendum: 11/06/16 at [address] Student documentation reviewed and I agree with above note. TANNER.
--- NOTE | 2016-11-06 15:54 | NUR ---
Activity/Tele Tele SB 50s, per patient monitor. [address] [facility] [place]. PT eval ordered, as pt is weak and has had a fall at home within the last 3 months. PT to see pt first thing tomorrow morning, per Federico Ramso, PT. Pt oriented x3, uses call light to make needs known. Denies pain/discomfort. Addendum: 11/06/16 at 1601 by CARLA GALDAMEZ RN Tele SB 40s-50s
[2016-11-06] MEDS ORDERED: Potassium Chloride 20 mEq SR Tablet PO ONE (18:15)
--- NOTE | 2016-11-06 19:57 | PCM.PNMED ---
Subjective Date of Service Nov 06, 2016 Subjective Mrs. Oconnor is an 86 year old woman with a history of nono-alcoholic liver cirrhosis who was brought to the ED by EMS for altered mental status. stated that she had stopped her lactulose because she didn't want diarrhea. Telemetry: Sinus bradycardia in the 40s and 50s. Overnight there were no events. The patient states she is feeling much better and not confused any more. She is eating and was out of bed sitting on a chair when I walked in. Exam Vital Signs Vital Sign - Last Date Time Temp Pulse Resp B/P Pulse Ox O2 Delivery O2 Flow Rate FiO2 11/06/16 17:30 36.4 51 16 95/52 98 Room Air 11/05/16 14:41 2 Intake and Output 11/05/16 11/05/16 11/06/16 Cumulative From/Thru 15:00 23:00 07:00 11/05/16 11:41 - 11/06/16 06:35 Intake Total 500 ml 0 ml 300 ml 800 ml Output Total 450 ml 350 ml 800 ml Balance 500 ml -450 ml -50 ml 0 ml Intake Oral 0 ml 300 ml 300 ml IV Total 500 ml 500 ml Output Urine Total 450 ml 350 ml 800 ml # Bowel Movements 0 0 Exam General: alert, oriented x3, cooperative, no acute distress, answering all questions appropriately Eyes: scleral anicteric Mouth: mucous membranes moist/pink Neck: supple Chest & Lungs: clear to auscultation, no adventitious breath sounds, no crackles , no wheeze Cardiovascular: no murmurs/rubs/gallops, regular rate/rhythm Pulses: Radial (present and equal), Dorsalis Pedi (present and equal) Abdomen: soft, non-tender, normoactive bowel tones Musculoskeletal: no swollen or erythematous joints Extremities: no edema, no cyanosis, no clubbing Skin: No rashes, warm and dry, no erythematous areas Neurological: Normal speech . IVs and Medications Medications Reviewed: Medications were reviewed in detail Lab and Diagnostics Result Diagram: 11/06/16 0700 11/06/16 0700 X-Rays, CTs and MRIs PROCEDURE: CT BRAIN WITHOUT CONTRAST IMPRESSION: 1. No definite acute intracranial abnormality. 2. Diffuse white matter hypodensities likely representing moderate to severe chronic small vessel ischemic changes . A superimposed acute process may be obscured. If clinical concern persists, recommend further evaluation with MRI. 3. Moderate cerebral volume loss. 4. Sinus mucosal disease redemonstrated, most prominent within the left maxillary sinus. Approved by: Enoch Canseco M.D. on 11/05/2016 at 14:57 PROCEDURE: X-RAY CHEST ONE VIEW, PORTABLE IMPRESSION: 1. Pulmonary vascular prominence suggesting mild edema. Approved by: Enoch Canseco M.D. on 11/05/2016 at 12:12 Assessment & Plan Mrs. Oconnor is an 86 year old woman with a history of nono-alcoholic liver cirrhosis who was brought to the ED by EMS for altered mental status. stated that she had stopped her lactulose because she didn't want diarrhea. 1. Hepatic encephalopathy, recurrent, present on admission. Resolving. -Recurrent hepatic encephalopathy secondary to SIERRA, not taking her lactulose -This morning, patient was A&O x 3 and knew the president's name. -Brain CT: no acute changes. -UA confounding picture, see #4 -Ammonia level elevated at 351 -Increased lactulose to 20mg TID in the acute setting. -Blood cultures no growth in 24 hours 2. SIERRA with cirrhosis, chronic, present on admission. Active. -See #1 above -Previous GI consultation in 02/2014 -Last CT abdomen/pelvis 07/2016 showed that the liver is shrunken and nodular, indicating cirrhosis. Multiple calcifications within the spleen are present, indicating remote granulomatous disease. Gallbladder grossly unremarkable. -Total bilirubin 2.1,AST 84, ALT 42, alkaline phosphatase 200, ammonia 351 today -Lactulose, rifaximin -Hold torsemide and ursodiol for now and will monitor mental status and liver function -CMP, ammonia labs -Stool guaiac test ordered 3. Acute kidney injury on chronic kidney disease (stage 3), present on admission. Active. -Creatinine 2.38, down to 2.19 today -Possibly secondary to hepatorenal syndrome and worsening hepatic function -CMP -Holding IV fluids for now as patient has mild pulmonary edema and bilateral leg edema and she is eating 4. Urinary tract infection, recurrent. Present on admission. Active. -Urine culture >100,000 CFU gram negative rods. Last urine culture revealed Klebsiella which was pansensitive except for ampicillin. -Urine sensitivities pending -Ceftriaxone 2g daily. 5. Sinus bradycardia, acute, present on admission. Active. -Hold patient's home metoprolol -Telemetry -Currently patient reports no dizziness 6. Elevated troponin, present on admission in the setting of kidney disease. Present on admission. Resolving. -This may represent demand ischemia or her new baseline since September 2016 -Denies chest pain or palpitations 7. Hypertension, chronic. -Continue spironolactone -Hold metoprolol and torsemide with bradycardia -vitals 8. Chronic anemia and thrombocytopenia, stable. -Hgb 10.8, HCT 32 and platelets 123,000 both are stable compared to prior hospitalizations - CBC Zofran when necessary for nausea and vomiting. Patient Status: Patient is admitted under inpatient status with expected length of stay greater than 2 midnights due to severity of presenting symptoms, risk of adverse event, and complexity of treatment plan. VTE Prophylaxis: Sub-Q Heparin (Unfractionated), SCDs VTE Mechanical Devices: Venous Foot Pump Resuscitation Status: DNR/DNI:Do Not Resuscitate/Intubate Attending Statement The patient was seen and examined together with Dr. Pride on 11-06-16 and I agree with the history, exam and plan as outlined in the note above. Patricia Pride DO Nov 06, 2016 19:57 Renetta Flores MD Nov 07, 2016 18:19 VTE Prophylaxis: Sub-Q Heparin (Unfractionated), SCDs VTE Mechanical Devices: Venous Foot Pump Resuscitation Status: DNR/DNI:Do Not Resuscitate/Intubate Patricia Pride DO Nov 06, 2016 19:57
--- NOTE | 2016-11-06 21:12 | NUR ---
Fall Risk P: when assessing patient she told me of a fall at home. She also has some intermittent confusion. I: I assessed and found bruising on her sacral/buttock area. Told patient to use her walker at all times, and to use her call light every time she gets out of bed. E: Patient is resting comfortably in bed and has been using her call light. S: 2 bedrails up, nonskid socks, light on in room, call light within reach.
[2016-11-06] MEDS ORDERED: 0.9% Sodium Chloride 100 ML ONE (21:39)
[2016-11-06] MEDS: cefTRIAXone Inj 2,000 MG in Dextrose 5% Minibag Plus 50 ML IV SCH (22:02)
[2016-11-07 05:04] VITALS: BP 120/65; PULSE 62; RESP 18; O2SAT 97
[2016-11-07] MEDS: Pantoprazole 40 mg ER24 Tablet PO SCH (06:30)
[2016-11-07 07:27] LABS: EOSINOPHILS % (AUTO) 3.7 % (0-5); MONOCYTES % (AUTO) 12.6 % (4-12); Mean Corpuscular Hemoglobin 32.2 pg (27.0-35.0); Mean Corpuscular Volume 94.4 fL (81-100); Platelet Count 104 bil/L (150-400)
[2016-11-07] MEDS ORDERED: 0.9% Sodium Chloride 250 ML ONE (07:44)
--- NOTE | 2016-11-07 07:47 | NUR ---
Lactulose/IV ABX Pt received lactulose during the shift and did not have a BM. Pt's PIV site was occluded and leaking and was DC'd. A new PIV was put in and IV ABX were started.
[2016-11-07] MEDS: Lactulose 20 Gm/30 mL 30 mL Syrup PO SCH ×3 (08:45→20:52)
[2016-11-07 09:16] VITALS: BP 108/61; PULSE 59; RESP 16; O2SAT 96
[2016-11-07] MEDS: Heparin 5,000 Unit/mL Inj SUBQ SCH ×2 (10:19→20:50)
[2016-11-07 10:38] VITALS: PULSE 55
[2016-11-07] MEDS: 0.9% Sodium Chloride 1,000 ML IV SCH ×2 (12:39→20:10)
[2016-11-07 13:46] VITALS: BP 121/67; PULSE 56; RESP 18; O2SAT 97
[2016-11-07] MEDS ORDERED: Lactulose 20 Gm/30 mL 30 mL Syrup RECTAL SCH (14:30)
[2016-11-07] MEDS ORDERED: Lactulose 20 Gm/30 mL 30 mL Syrup PO SCH (14:30)
--- NOTE | 2016-11-07 15:48 | DRSVH ---
PROCEDURE: X-RAY CHEST ONE VIEW, PORTABLE ([id number]) INDICATIONS: CONFIRM NG TUBE PLACEMENT TECHNIQUE: One view of the chest was acquired. COMPARISON: [facility], CR, XR CHEST 1VW (PORTABLE), 11/05/2016, 11:44. FINDINGS: Surgical changes and devices: Nasogastric tube is in place tip traversing the GE junction and side-po rt position within the distal esophagus. Lungs and pleura: No pleural effusions or pneumothorax. Lungs are clear. Mediastinum: Mediastinal contours appear normal. Heart size is normal. Bones and chest wall: No suspicious bony lesions. Overlying soft tissues appear unremarkable. IMPRESSION: Placement of nasogastric tube. Dictated by: Surendra MORTON Interpreted: Bailey Beltran MD on 11/07/2016 at 15:47 Transcribed by: LINDSEY on 11/07/2016 at 15:47 Approved by: Bailey Beltran M.D. on 11/07/2016 at 16:49
--- NOTE | 2016-11-07 16:47 | DRSVH ---
PROCEDURE: X-RAY CHEST ONE VIEW ([id number]) INDICATIONS: Confirm placement of NG tube in stomach TECHNIQUE: One view of the chest was acquired. COMPARISON: [facility], CR, XR CHEST 1VW (PORTABLE), 11/07/2016, 14:46. [facility], CR, XR CHEST 1VW (PORTABLE), 11/05/2016, 11:44. FINDINGS: Surgical changes and devices: NG tube tip extends into the gastric lumen.. Lungs and pleura: No pleural effusions or pneumothorax. Lungs are clear. Mediastinum: Mediastinal contours appear normal. Heart size is normal. Bones and chest wall: No suspicious bony lesions. Overlying soft tissues appear unremarkable. IMPRESSION: NG tube tip extends into the gastric lumen. Dictated by: Jalen Jurado M.D. on 11/07/2016 at 16:44 Approved by: Jalen Jurado M.D. on 11/07/2016 at 16:44
[2016-11-07 17:32] VITALS: BP 114/48; PULSE 56; RESP 18; O2SAT 98
--- NOTE | 2016-11-07 17:43 | NUR ---
Wound Pressure ulcer protocol received, pt seen at bedside with nursing. 86 year old female who presented to the ED via EMS for vomiting for the past 12 hours. Associated symptoms include weakness and nausea. She was bradycardic, cool to touch, blood sugar was 135 en route. Patient has bruising at her left flank and back of her thighs bilaterally but otherwise no pressure associated skin issues. Patient is on a low airloss bed, heels are floated.
[2016-11-07] MEDS: Artificial Tears 15 mL Ophthalmic Solution BOTH_EYES PRN (17:52)
--- NOTE | 2016-11-07 19:24 | NUR ---
NG Tube and Restraints Pt mentation declined this AM. Provider notified. New orders for NG tube. Advanced to 60cm and confirmed placement with xray. Restraints in place to protect tube placement until mentation improves. Frequent rounding in place and call light within reach.
--- NOTE | 2016-11-07 20:46 | PCM.PNMED ---
Subjective Date of Service Nov 07, 2016 Subjective Mrs. Oconnor is an 86 year old woman with a history of nono-alcoholic liver cirrhosis who was brought to the ED by EMS for altered mental status. stated that she had stopped her lactulose because she didn't want diarrhea. This is day 3. Patient has continued to be more confused and harder to arouse overnight and into the morning. She answered appropriately when asked if she was in any pain but very faint and fell asleep right away again. Exam Vital Signs Vital Sign - Last Date Time Temp Pulse Resp B/P Pulse Ox O2 Delivery O2 Flow Rate FiO2 11/07/16 05:04 36.3 62 18 120/65 97 Room Air 11/05/16 14:41 2 Intake and Output 11/06/16 11/06/16 11/07/16 Cumulative From/Thru 15:00 23:00 07:00 11/05/16 11:41 - 11/07/16 05:32 Intake Total 1925 ml 200 ml 2925 ml Output Total 450 ml 250 ml 1500 ml Balance 1475 ml -50 ml 1425 ml Intake Oral 1925 ml 200 ml 2425 ml IV Total 500 ml Output Urine Total 450 ml 250 ml 1500 ml # Bowel Movements 1 0 1 Exam General: Laying in bed, difficult to arouse, mumbling, did answer appropriately at one point Eyes: Closed Mouth: mucous membranes moist/pink Chest & Lungs: clear to auscultation, no adventitious breath sounds Cardiovascular: no murmurs/rubs/gallops, regular rate/rhythm Pulses: Radial (present and equal) Abdomen: soft, non-tender, normoactive bowel tones Musculoskeletal: no swollen or erythematous joints Extremities: no edema, no cyanosis, no clubbing Neurological: Somnolent IVs and Medications Medications Reviewed: Medications were reviewed in detail Lab and Diagnostics Result Diagram: 11/06/16 0700 11/07/16 0133 X-Rays, CTs and MRIs PROCEDURE: CT BRAIN WITHOUT CONTRAST IMPRESSION: 1. No definite acute intracranial abnormality. 2. Diffuse white matter hypodensities likely representing moderate to severe chronic small vessel ischemic changes . A superimposed acute process may be obscured. If clinical concern persists, recommend further evaluation with MRI. 3. Moderate cerebral volume loss. 4. Sinus mucosal disease redemonstrated, most prominent within the left maxillary sinus. Approved by: Enoch Canseco M.D. on 11/05/2016 at 14:57 PROCEDURE: X-RAY CHEST ONE VIEW, PORTABLE IMPRESSION: 1. Pulmonary vascular prominence suggesting mild edema. Approved by: Enoch Canseco M.D. on 11/05/2016 at 12:12 Assessment & Plan Mrs. Oconnor is an 86 year old woman with a history of non-alcoholic liver cirrhosis who was brought to the ED by EMS for altered mental status. stated that she had stopped her lactulose because she didn't want diarrhea. This is hospital day 3. 1. TAMELA, not present on admission, acute - NS 100ml/hr began this afternoon - Potassium is usually low, now at 5 - Potassium-lowering agents given, repeat potassium was 5.1, continue fluids and repeat level in a.m. - Stopped spironolactone while continuing fluids 2. Hepatic encephalopathy, recurrent, present on admission. Resolving. -Recurrent hepatic encephalopathy secondary to SIERRA, not taking her lactulose at home -Yesterday A&O x 4. Today difficult to arouse -Had NG tube placed because of swallowing difficulties. Patient receiving her medications through NG tube -Brain CT: no acute changes. -UA confounding picture, see #4 -Ammonia level elevated at 351 on admission, repeat ammonia labs since clinically worsening -Increased lactulose to 20mg TID in the acute setting. -Blood cultures no growth 2. SIERRA with cirrhosis, chronic, present on admission. Active. -See #1 above -Previous GI consultation in 02/2014 -Last CT abdomen/pelvis 07/2016 showed that the liver is shrunken and nodular, indicating cirrhosis. Multiple calcifications within the spleen are present, indicating remote granulomatous disease. Gallbladder grossly unremarkable. -Upon admission total bilirubin 2.1, AST 84, ALT 42, alkaline phosphatase 200, ammonia 351 today -Lactulose, rifaximin -Hold torsemide and ursodiol for now and will monitor mental status and liver function -CMP -Stool guaiac test ordered 3. Acute kidney injury on chronic kidney disease (stage 3), present on admission. Active. -Creatinine 2.38, down now up again -Possibly secondary to hepatorenal syndrome and worsening hepatic function -CMP -Started IV fluids this afternoon. Careful because of mild pulmonary edema 4. Urinary tract infection, recurrent. Present on admission. Active. -Urine culture >100,000 CFU gram negative rods. Last urine culture revealed Klebsiella which was pansensitive except for ampicillin. -Urine sensitivities pending -Ceftriaxone 2g daily. 5. Sinus bradycardia, acute, present on admission. Active but stable. -Hold patient's home metoprolol -Telemetry 6. Elevated troponin, present on admission in the setting of kidney disease. Present on admission. Resolving. -This may represent demand ischemia or her new baseline since September 2016 -Denies chest pain or palpitations 7. Hypertension, chronic, stable. -Currently low-normal without medication -Holding spironolactone with fluid resuscitation -Hold metoprolol and torsemide with bradycardia -vitals 8. Chronic anemia and thrombocytopenia, stable. -Hgb 10.8, HCT 32 and platelets 123,000 both are stable compared to prior hospitalizations - CBC Zofran when necessary for nausea and vomiting. Patient Status: Patient is admitted under inpatient status with expected length of stay greater than 2 midnights due to severity of presenting symptoms, risk of adverse event, and complexity of treatment plan. Hope to discharge home with [facility] in 4-5 days. VTE Prophylaxis: Sub-Q Heparin (Unfractionated), SCDs VTE Mechanical Devices: Venous Foot Pump Resuscitation Status: DNR/DNI:Do Not Resuscitate/Intubate Attending Statement The patient was seen and examined together with Dr. Pride on 11-07-16 and I agree with the history, exam and plan as outlined in the note above. Patricia Pride DO Nov 07, 2016 06:54 Renetta Flores MD Nov 08, 2016 14:03
[2016-11-07] MEDS: cefTRIAXone Inj 2,000 MG in Dextrose 5% Minibag Plus 50 ML IV SCH (20:50)
[2016-11-07 22:10] VITALS: BP 127/54; PULSE 67; RESP 16; O2SAT 97
[2016-11-08] VITALS (7 sets, daily range): BP systolic 94–132; BP diastolic 50–76; PULSE 57–75; RESP 16–20; O2SAT 93–99
[2016-11-08] MEDS: 0.9% Sodium Chloride 1,000 ML IV SCH ×2 (06:10→14:04)
[2016-11-08] MEDS: Pantoprazole 40 mg ER24 Tablet PO SCH (06:30)
[2016-11-08 07:08] LABS: BASOPHILS % (AUTO) 0.2 % (0-3); EOSINOPHILS % (AUTO) 2.5 % (0-5); MONOCYTES % (AUTO) 8.9 % (4-12); Mean Corpuscular Hemoglobin 32.6 pg (27.0-35.0); Mean Corpuscular Volume 97.6 fL (81-100); NEUTROPHILS % (AUTO) 79.1 % (40-74); Platelet Count 95 bil/L (150-400)
[2016-11-08] MEDS: Lactulose 20 Gm/30 mL 30 mL Syrup PO SCH ×3 (08:26→21:48)
[2016-11-08] MEDS: Heparin 5,000 Unit/mL Inj SUBQ SCH ×2 (08:31→21:48)
--- NOTE | 2016-11-08 09:49 | NUR ---
Restraints Restraints in place for NG placement. Mentation improved. Education provided. Restraints dc'd.
[2016-11-08 12:07] LABS: INR 1.46 ratio
--- NOTE | 2016-11-08 15:48 | PCM.PNMED ---
Subjective Date of Service Nov 08, 2016 Subjective Mrs. Oconnor is an 86 year old woman with a history of nono-alcoholic liver cirrhosis who was brought to the ED by EMS for altered mental status. stated that she had stopped her lactulose because she didn't want diarrhea. This is day 4. Today the patient's mentation is much better. She was lying comfortably in bed when I talked to her. She states that she has been eating and up and out of bed. Still feels a little confused and dizzy but answers questions appropriately. . Exam Vital Signs Vital Sign - Last Date Time Temp Pulse Resp B/P Pulse Ox O2 Delivery O2 Flow Rate FiO2 11/08/16 15:36 36.4 75 16 132/76 93 Room Air 11/05/16 14:41 2 Intake and Output 11/07/16 11/07/16 11/08/16 Cumulative From/Thru 15:00 23:00 07:00 11/05/16 11:41 - 11/08/16 00:30 Intake Total 390 ml 200 ml 3515 ml Output Total 1500 ml Balance 390 ml 200 ml 2015 ml Intake Oral 200 ml 2625 ml IV Total 390 ml 890 ml Output Urine Total 1500 ml # Voids 2 2 # Bowel Movements 0 1 Exam General: Laying in bed, A&O x 2 (does not know what month or season), knew president Eyes: EOMI, sclera anicteric Mouth: mucous membranes moist/pink Chest & Lungs: clear to auscultation, no adventitious breath sounds Cardiovascular: no murmurs/rubs/gallops, regular rate/rhythm Pulses: Radial (present and equal) Abdomen: soft, non-tender, normoactive bowel tones Musculoskeletal: no swollen or erythematous joints Extremities: no edema, no cyanosis, no clubbing IVs and Medications Medications Reviewed: Medications were reviewed in detail Lab and Diagnostics Result Diagram: 11/08/1640 11/08/16 0640 X-Rays, CTs and MRIs PROCEDURE: CT BRAIN WITHOUT CONTRAST IMPRESSION: 1. No definite acute intracranial abnormality. 2. Diffuse white matter hypodensities likely representing moderate to severe chronic small vessel ischemic changes . A superimposed acute process may be obscured. If clinical concern persists, recommend further evaluation with MRI. 3. Moderate cerebral volume loss. 4. Sinus mucosal disease redemonstrated, most prominent within the left maxillary sinus. Approved by: Enoch Canseco M.D. on 11/05/2016 at 14:57 PROCEDURE: X-RAY CHEST ONE VIEW, PORTABLE IMPRESSION: 1. Pulmonary vascular prominence suggesting mild edema. Approved by: Enoch Canseco M.D. on 11/05/2016 at 12:12 Assessment & Plan Mrs. Oconnor is an 86 year old woman with a history of non-alcoholic liver cirrhosis who was brought to the ED by EMS for altered mental status. stated that she had stopped her lactulose because she didn't want diarrhea. This is hospital day 4. 1. TAMELA and CKD (stage 3), not present on admission, acute on chronic - NS 100ml/hr began this afternoon. Will continue but has difficulty with IVs. Now able to drink. - Potassium is usually low, now 4.5 - Creatinine was 1.5-1.7 prior (08/2016). Today 2.24 - Stopped spironolactone while continuing fluids. Restart when appropriate - Urology, Dr. Lawrence, consulted - UA, urine sodium, protein, creatinine ordered - Renal ultrasound ordered - CMP 2. Hepatic encephalopathy, recurrent, present on admission. Resolving. -Recurrent hepatic encephalopathy secondary to SIERRA and not taking her lactulose at home -Changes daily on her mentation. Better today than yesterday. -Had NG tube placed yesterday because of swallowing difficulties. Patient received her medications through NG tube yesterday. Will keep in for now -Brain CT: no acute changes. -UA confounding picture, see #4 -Ammonia level elevated at 351 on admission, repeat ammonia labs since clinically worsening -Increased lactulose to 20mg TID in the acute setting & receiving Rifaxamin 550 BID -Blood cultures no growth 2. SIERRA with cirrhosis, chronic, present on admission. Active. -See #1 above -Previous GI consultation in 02/2014 -Last CT abdomen/pelvis 07/2016 showed that the liver is shrunken and nodular, indicating cirrhosis. Multiple calcifications within the spleen are present, indicating remote granulomatous disease. Gallbladder grossly unremarkable. -Upon admission total bilirubin 2.1, AST 84, ALT 42, alkaline phosphatase 200, ammonia 351. Today T teresa: 1.5; AST: 51; ALT: 30; ammonia 114 -Lactulose, rifaximin -Hold torsemide and ursodiol for now and will monitor mental status and liver function. Restart when appropriate -Stool guaiac test ordered 4. Urinary tract infection, recurrent. Present on admission. Active. -Urine culture >100,000 CFU enterobacter sensitive to Ceftriaxone. -Ceftriaxone 2g daily. 5. Sinus bradycardia, acute, present on admission. Active but stable. -50s and 60s -Hold patient's home metoprolol -Telemetry 6. Elevated troponin, present on admission in the setting of kidney disease. Present on admission. Resolving. -This may represent demand ischemia or her new baseline since September 2016. Downtrend but still 0.032. -Denies chest pain or palpitations 7. Hypertension, chronic, stable. -Currently low-normal without medication -Holding spironolactone with fluid resuscitation. Restart when appropriate -Hold metoprolol and torsemide with bradycardia -vitals 8. Chronic anemia and thrombocytopenia, stable. -Hgb 10.8, HCT 32 and platelets 123,000 both are stable compared to prior hospitalizations - CBC Zofran when necessary for nausea and vomiting. Patient Status: Patient is admitted under inpatient status with expected length of stay greater than 2 midnights due to severity of presenting symptoms, risk of adverse event, and complexity of treatment plan. Hope to discharge home with a health care agent. This may take 4-5 days. Palliative care has been involved in her care in the past but although she is qualified for hospice, she has not wanted hospice. VTE Prophylaxis: Sub-Q Heparin (Unfractionated), SCDs VTE Mechanical Devices: Venous Foot Pump Resuscitation Status: DNR/DNI:Do Not Resuscitate/Intubate Attending Statement The patient was seen and examined together with Dr. Pride on 11/08/2016 and I agree with the history, exam and plan as outlined in the note above. Patricia Pride DO Nov 08, 2016 15:48 Allen Perla MD Nov 09, 2016 13:16
--- NOTE | 2016-11-08 16:51 | DRSVH ---
PROCEDURE: US RENAL SONOGRAM INDICATIONS: worsening kidney fx. Has SIERRA TECHNIQUE: Real-time scanning was performed of the kidneys and bladder, with image documentation. COMPARISON: None. FINDINGS: Kidneys: Kidneys are normal in size. Right kidney measures 9.7 cm long; left kidney measures 10.4 c m long. Right renal cortical thickness is 0.9 cm; left renal cortical thickness is 1.1 cm. Renal co rtical echotexture is normal. No hydronephrosis or nephrolithiasis. No suspicious solid mass lesion s. Right kidney cyst measuring roughly 3.4 cm Bladder: Pre-void bladder volume is 59 mL. Post-void residual is not evaluated.. Pre-void images d emonstrate no intraluminal masses or stones. On pre-void images, bilateral ureteral jets are noted w ith color Doppler interrogation. (Of note, ureteral jets may not be detectable in up to 25% of cases due to insufficient differences in specific gravity between ureteral and bladder urine). Miscellaneous: No free pelvic fluid. IMPRESSION: Mild bilateral renal cortical thinning and right renal cyst present. Kidneys otherwise a re grossly normal. Dictated by: Surendra MORTON Interpreted: Bailey Beltarn MD on 11/08/2016 at 16:49 Transcribed by: LINDSEY on 11/08/2016 at 16:50 Approved by: Bailey Beltran M.D. on 11/08/2016 at 17:17
--- NOTE | 2016-11-08 18:03 | NUR ---
Case Management: Attempted to have patient sign IMM today at 1730--pt requested that I come back tomorrow. Samra Pennington RN
--- NOTE | 2016-11-08 18:04 | NUR ---
update pt is doing better than yesterday. pt still is disoriented and confused at times but knows where she is. NG tube in place. call light within reach, side rails up, bed low in position. will continue to do hourly rounds.
--- NOTE | 2016-11-08 18:15 | CONS ---
[address] [address] CONSULTATION REPORT PATIENT: NATALIE LUGO : 1930 MR#: [id number] ADMIT: 11/05/2016 JOB ID: [id number] DATE OF SERVICE: REQUESTING PHYSICIAN: Miguelito Jeronimo MD REASON FOR CONSULTATION: Management of abnormal kidney function. CHIEF COMPLAINT: Confusion. HISTORY OF PRESENT ILLNESS: This is an 86-year-old lady with significant past medical history of nonalcoholic liver cirrhosis complicated by ascites, hepatic encephalopathy, history of hypertension, coronary artery disease, anemia, depression, chronic kidney disease stage 3, recent episode of acute kidney injury, who came to the hospital due to confusion. I have gathered history from the medical record. The patient is not able to provide me any meaningful history. According to the note, the patient was found on the floor confused. She was brought to the emergency department by the EMS. The patient did not take lactulose for the past couple of days. She had some weakness and nausea. The initial vitals were temperature of 35.8, pulse of 44, respiratory rate of 13, blood pressure of 129/45. The patient was admitted on November 05, 2016. Over the past 48 hours her lowest blood pressure noted at 91/36. Her initial serum creatinine was 2.38, meagan to 2.79 yesterday, today came down to 2.24. Her baseline serum creatinine was 1.1-1.5. She had an episode of acute kidney injury in July and her serum creatinine peaked at 4.3. At the time she was found to have prerenal azotemia which got better with IV fluid. The patient has received normal saline since the admission; the current rate is 60 mL/hour. She is now treated for hepatic encephalopathy. NG tube was placed yesterday due to difficulty swallowing. Also she is receiving ceftriaxone treating for UTI. She grew out Enterobacter. CODE STATUS: Currently DNR, DNI. MEDICATIONS: Reviewed. ALLERGIES: CITRUS, MUSHROOM, FISH OIL, PENICILLINS, SHELLFISH, QUININE. PAST MEDICAL HISTORY: 1. Nonalcoholic liver cirrhosis complicated by ascites and hepatic encephalopathy. 2. Splenomegaly and chronic thrombocytopenia secondary to liver cirrhosis. 3. Hypertension. 4. History of chronic kidney disease stage 3. 5. Recent episode of acute kidney injury in July 2016. 6. Depression. 7. Hypertension. 8. History of basal cell carcinoma. 9. Thyroid nodule. PAST SURGICAL HISTORY: Hysterectomy. FAMILY HISTORY: Positive for HI in her mother. SOCIAL HISTORY: Denies current use of alcohol, tobacco, or illicit drugs. REVIEW OF SYSTEMS: Unable to obtain due to altered mental status. PHYSICAL EXAMINATION: Vitals: Temperature 36.4, pulse 75, respiratory rate 16, blood pressure 132/76, O2 sat 93% on room air. General appearance: Awake, confused. Oriented x1 only for place. She does not know the month and she is not oriented to present. HEENT: Mild pallor. No jaundice. No JVD. No lymphadenopathy. No thyroid enlargement. Atraumatic. Moist mucous membranes. Heart: Regular rhythm. Normal S1, S2. Soft systolic murmur noted. Lungs: Clear to auscultation bilaterally. No wheezing. No rhonchi. Abdomen: Soft, obese, active bowel sounds, nontender. No mass appreciated. Extremities: Trace edema on the lower extremities. LABORATORY: Sodium 139, potassium 4.5, chloride 104, bicarb 19, BUN 46, creatinine 2.24. Hemoglobin 9.5, WBC 9.1, platelets 95. CT brain showed moderate cerebral volume loss, diffuse white matter hypodensities representing moderate to severe chronic small vessel ischemic changes. No acute intracranial abnormality. Chest x-ray on November 07 showed NG tube tip extends into the gastric lumen. Lungs are clear. No effusions. No pneumothorax. ASSESSMENT: 1. Acute kidney injury on chronic kidney disease secondary to intravascular volume depletion and acute tubular necrosis due to ongoing urinary tract infection and possible urinary retention. I agreed with the primary team to stop administering Aldactone. I will continue current fluids, normal saline 60 mL/hour. Will order a bladder scan to check for postvoid residual. 2. Altered mental status secondary to hepatic encephalopathy. 3. Enterobacter urinary tract infection. 4. Nonalcoholic steatohepatitis with liver cirrhosis. 5. Hypertension, now with bradycardia. Metoprolol on hold. 6. Chronic anemia and thrombocytopenia secondary to liver cirrhosis. PLAN: 1. Continue IV fluid, normal saline 160 mL/hour. 2. Continue IV Rocephin. 3. Hold all diuretics. 4. Ordered bladder scan. 5. Avoid nephrotoxins. 6. Prognosis is guarded. Thank you for the consultation. We will monitor along with you. [facility]
--- NOTE | 2016-11-08 18:32 | NUR ---
Activity and Urine Mentation improving. Using 1PA with FWW to chair for meals and bedside commode. Tolerating well spent approx 1 hr in chair at each mealtime. Mostly incontinent of urine and stool. New orders for U/A, if unobtainable at C plan is to in/out cath. Nephrology ordering PVR scan if >[address] [place].
--- NOTE | 2016-11-08 20:30 | NUR ---
IV infiltration LT forearm IV noted red, tender, pink, puffy, and edemas. IV removed with catheter intact and warm compress applied. Denies numbness and tingling. IV Therapy notified for restart. Care ongoing.
[2016-11-08] MEDS: cefTRIAXone Inj 2,000 MG in Dextrose 5% Minibag Plus 50 ML IV SCH (21:38)
--- NOTE | 2016-11-08 23:31 | NUR ---
Rash Noted bright red rash on lon area, thighs, pannus, under breasts, and back(light red rash). Bogdan blankenship hospitalist.
[2016-11-09] VITALS (8 sets, daily range): BP systolic 103–133; BP diastolic 54–69; PULSE 55–88; RESP 16–18; O2SAT 93–100
[2016-11-09] MEDS: Pantoprazole 40 mg ER24 Tablet PO SCH (05:36)
[2016-11-09 06:41] LABS: BASOPHILS % (AUTO) 0.3 % (0-3); EOSINOPHILS % (AUTO) 8.2 % (0-5); MONOCYTES % (AUTO) 9.9 % (4-12); Mean Corpuscular Hemoglobin 32.4 pg (27.0-35.0); Mean Corpuscular Volume 100.3 fL (81-100); NEUTROPHILS % (AUTO) 70.2 % (40-74); Platelet Count 86 bil/L (150-400)
--- NOTE | 2016-11-09 06:47 | NUR ---
PVR 35ml
[2016-11-09] MEDS: Heparin 5,000 Unit/mL Inj SUBQ SCH ×2 (08:30→20:13)
--- NOTE | 2016-11-09 09:13 | NUR ---
Social Work: Continued d/c planning Data: Pt is on day 4 of hospitalization. EMR reviewed. [facility] informed NEEDLE LOOM OPERATOR they cannot take pt back on their service as they do not see any goals to be met. NEEDLE LOOM OPERATOR referred pt to [facility] to determine if they feel they can work with pt's needs. Access given. NEEDLE LOOM OPERATOR will continue to follow. Assessment: Pt with caregiving. Plan: Pt will d/c home via POV when medically stable. NEEDLE LOOM OPERATOR referred pt to [facility] to determine if they feel they can work with pt's needs. NEEDLE LOOM OPERATOR will continue to follow. MOHAMUD Ham
[2016-11-09] MEDS: Lactulose 20 Gm/30 mL 30 mL Syrup PO SCH ×3 (10:30→20:12)
[2016-11-09] MEDS: 0.9% Sodium Chloride 1,000 ML IV SCH (11:04)
--- NOTE | 2016-11-09 11:16 | PCM.PNMED ---
Subjective Date of Service Nov 09, 2016 Subjective Mrs. Oconnor is an 86 year old woman with a history of nono-alcoholic liver cirrhosis who was brought to the ED by EMS for altered mental status. stated that she had stopped her lactulose because she didn't want diarrhea. This is day 5. Today the patient was alert and laying in bed comfortably. She knew her name but unaware of where she was. Denies chest pain, palpitations, calf pain, itching, nausea, headache. Exam Vital Signs Vital Sign - Last Date Time Temp Pulse Resp B/P Pulse Ox O2 Delivery O2 Flow Rate FiO2 11/09/16 10:45 36.6 75 18 109/63 93 Room Air 11/05/16 14:41 2 Intake and Output 11/08/16 11/08/16 11/09/16 Cumulative From/Thru 15:00 23:00 07:00 11/05/16 11:41 - 11/09/16 06:43 Intake Total 0 ml 1612 ml 1287 ml 6414 ml Output Total 450 ml 1950 ml Balance 0 ml 1612 ml 837 ml 4464 ml Intake Oral 0 ml 1205 ml 700 ml 4530 ml IV Total 407 ml 587 ml 1884 ml Output Urine Total 450 ml 1950 ml # Voids 2 4 8 # Bowel Movements 1 4 2 8 Exam General: Laying in bed, A&O x 1 Eyes: EOMI, sclera anicteric Mouth: mucous membranes moist/pink Chest & Lungs: clear to auscultation, no adventitious breath sounds Cardiovascular: no murmurs/rubs/gallops, regular rate/rhythm Pulses: Radial (present and equal) Abdomen: soft, non-tender, normoactive bowel tones Musculoskeletal: no swollen or erythematous joints Skin: diffuse erythematous rash over abdomen, groin and legs Extremities: no edema, no cyanosis, no clubbing IVs and Medications Medications Reviewed: Medications were reviewed in detail Lab and Diagnostics Result Diagram: 11/09/1662411/09/16624 X-Rays, CTs and MRIs PROCEDURE: CT BRAIN WITHOUT CONTRAST IMPRESSION: 1. No definite acute intracranial abnormality. 2. Diffuse white matter hypodensities likely representing moderate to severe chronic small vessel ischemic changes . A superimposed acute process may be obscured. If clinical concern persists, recommend further evaluation with MRI. 3. Moderate cerebral volume loss. 4. Sinus mucosal disease redemonstrated, most prominent within the left maxillary sinus. Approved by: Enoch Canseco M.D. on 11/05/2016 at 14:57 PROCEDURE: X-RAY CHEST ONE VIEW, PORTABLE IMPRESSION: 1. Pulmonary vascular prominence suggesting mild edema. Approved by: Enoch Canseco M.D. on 11/05/2016 at 12:12 Date of Service: 11/08/16 US RENAL SONOGRAM IMPRESSION: Mild bilateral renal cortical thinning and right renal cyst present. Kidneys otherwise are grossly normal. Dictated by: Surendra Hendrix RRA Interpreted: Bailey Beltran MD on 11/08/2016 at 16: 49 Transcribed by: LINDSEY on 11/08/2016 at 16:50 Approved by: Bailey Beltran M.D. on 11/08/2016 at 17:17 Assessment & Plan Mrs. Oconnor is an 86 year old woman with a history of non-alcoholic liver cirrhosis who was brought to the ED by EMS for altered mental status. stated that she had stopped her lactulose because she didn't want diarrhea. This is hospital day 5. 1. TAMELA and CKD (stage 3), not present on admission, acute on chronic - NS now at 40 ml/hr per process control specialist - Potassium is stable - Creatinine was 1.5-1.7 prior (08/2016). Today down to 1.68 - Stopped diuretics while continuing fluids. Restart when appropriate - Urology, Dr. Lawrence, consulted. Appreciate. - Post void residual was 35ml - Renal ultrasound grossly normal - CMP 2. Hepatic encephalopathy, recurrent, present on admission. Resolving. -Recurrent hepatic encephalopathy secondary to SIERRA and not taking her lactulose at home -Changes daily on her mentation. Better today than yesterday. -Had NG tube placed yesterday because of swallowing difficulties. Now out -Brain CT: no acute changes. -UA confounding picture, see #4 -Ammonia level elevated at 351 on admission, last was 52 -Lactulose 20mg TID, Rifaxamin 550 BID -Blood cultures no growth 48 hours 2. SIERRA with cirrhosis, chronic, present on admission. Active. -See #1 above -Previous GI consultation in 02/2014 -Last CT abdomen/pelvis 07/2016 showed that the liver is shrunken and nodular, indicating cirrhosis. Multiple calcifications within the spleen are present, indicating remote granulomatous disease. Gallbladder grossly unremarkable. -Upon admission total bilirubin 2.1, AST 84, ALT 42, alkaline phosphatase 200, ammonia 351. Trending down -Lactulose, rifaximin -Hold torsemide and ursodiol for now and will monitor mental status and liver function. Restart when appropriate -Stool guaiac test negative 4. Urinary tract infection, recurrent. Present on admission. Active. -Urine culture >100,000 CFU enterobacter sensitive to Ceftriaxone. -Ceftriaxone 2g daily. 5. Sinus bradycardia, acute, present on admission. Resolved. -Held patient's home metoprolol -Telemetry 6. Elevated troponin, present on admission in the setting of kidney disease. Present on admission. Resolving. -This may represent demand ischemia or her new baseline since September 2016. Downtrend but still 0.032. -Denies chest pain or palpitations 7. Hypertension, chronic, stable. -Currently low-normal without medication - Holding diuretics, beta blockers -vitals 8. Chronic anemia and thrombocytopenia, stable. -Hgb 10.8, HCT 32 and platelets 123,000 both are stable compared to prior hospitalizations - CBC Zofran when necessary for nausea and vomiting. Patient Status: Patient is admitted under inpatient status with expected length of stay greater than 2 midnights due to severity of presenting symptoms, risk of adverse event, and complexity of treatment plan. Hope to discharge home with a health care agent or SNF. Expect discharge tomorrow. Palliative care has been involved in her care in the past but although she is qualified for hospice, she has not wanted hospice. VTE Prophylaxis: Sub-Q Heparin (Unfractionated), SCDs VTE Mechanical Devices: Intermittant Pneumatic CD Resuscitation Status: DNR/DNI:Do Not Resuscitate/Intubate Attending Statement The patient was seen and examined together with Dr. Pride on 11/09/2016 and I agree with the history, exam and plan as outlined in the note above. Patricia Pride DO Nov 09, 2016 11:16 Allen Perla MD Nov 10, 2016 13:15
--- NOTE | 2016-11-09 13:02 | PCM.PNMED ---
Subjective Date of Service Nov 09, 2016 Subjective She is doing better today and able to finish her breakfast. She is able to answer some of my questions and follow commands. Serum creatinine trended down, 1.67. Exam Vital Signs Vital Sign - Last Date Time Temp Pulse Resp B/P Pulse Ox O2 Delivery O2 Flow Rate FiO2 11/09/16 10:45 36.6 75 18 109/63 93 Room Air 11/05/16 14:41 2 Intake and Output 11/08/16 11/08/16 11/09/16 Cumulative From/Thru 15:00 23:00 07:00 11/05/16 11:41 - 11/09/16 06:43 Intake Total 0 ml 1612 ml 1287 ml 6414 ml Output Total 450 ml 1950 ml Balance 0 ml 1612 ml 837 ml 4464 ml Intake Oral 0 ml 1205 ml 700 ml 4530 ml IV Total 407 ml 587 ml 1884 ml Output Urine Total 450 ml 1950 ml # Voids 2 4 8 # Bowel Movements 1 4 2 8 Exam General appearance: Awake, oriented x2 (place and person) HEENT: Mild pallor. No jaundice. No JVD. No lymphadenopathy. No thyroid enlargement. Atraumatic. Moist mucous membranes. Heart: Regular rhythm. Normal S1, S2. Soft systolic murmur noted. Lungs: Clear to auscultation bilaterally. No wheezing. No rhonchi. Abdomen: Soft, obese, active bowel sounds, nontender. No mass appreciated. Extremities: Trace edema on the lower extremities. (+) flapping tremors but improved. Lab and Diagnostics Result Diagram: 11/09/1662411/09/16624 X-Rays, CTs and MRIs PROCEDURE: CT BRAIN WITHOUT CONTRAST IMPRESSION: 1. No definite acute intracranial abnormality. 2. Diffuse white matter hypodensities likely representing moderate to severe chronic small vessel ischemic changes . A superimposed acute process may be obscured. If clinical concern persists, recommend further evaluation with MRI. 3. Moderate cerebral volume loss. 4. Sinus mucosal disease redemonstrated, most prominent within the left maxillary sinus. Approved by: Enoch Canseco M.D. on 11/05/2016 at 14:57 PROCEDURE: X-RAY CHEST ONE VIEW, PORTABLE IMPRESSION: 1. Pulmonary vascular prominence suggesting mild edema. Approved by: Enoch Canseco M.D. on 11/05/2016 at 12:12 Assessment & Plan 1. Acute kidney injury on chronic kidney disease secondary to intravascular volume depletion and acute tubular necrosis due to ongoing urinary tract infection. - I do not think she has HRS. - I would like to continue IVF NS 40 ml/hr for one more day. - continue treat UTI. - Hold all diuretics. - Avoid nephrotoxins. 2. Altered mental status secondary to hepatic encephalopathy. 3. Enterobacter urinary tract infection. 4. Nonalcoholic steatohepatitis with liver cirrhosis. 5. Hypertension, now with bradycardia. Metoprolol on hold. 6. Chronic anemia and thrombocytopenia secondary to liver cirrhosis. VTE Prophylaxis: Sub-Q Heparin (Unfractionated), SCDs VTE Mechanical Devices: Intermittant Pneumatic CD Resuscitation Status: DNR/DNI:Do Not Resuscitate/Intubate Sandra Clemente MD Nov 09, 2016 13:02
[2016-11-09] MEDS ORDERED: 0.9% Sodium Chloride 1,000 ML IV SCH (13:05)
--- NOTE | 2016-11-09 13:22 | NUR ---
NUTRITION FOLLOW-UP: ASSESS: Pt is an 86 yo female admitted w/ hepatic encephalopathy and history of SIERRA w/ ascites. Pt's mentation is slowly improving. She had to have NGT placed 11/07 d/t decreased mentation and swallowing issues so that she could receive her medication. NGT is still in place. She continues on a Renal diet with normal consistency and thin liquids and is able to tolerate this diet with no issues. PO avg over 4 days is 65% PMHX: SIERRA w/ ascites and bilateral lower extremity edema, chronic macrocytic anemia, splemomegaly and chronic thrombocytopenia, HTN, UTIs, CAD w/ Hx of MS, right thyroid nodule, anemia w/ microcystosis, Depression, basal cell carcinoma, fatty liver, hysterectomy, Stage III CKD LABS: Reviewed. Bun 39, transporter driver 1.68, T. bili 1.5, AST 52, Alb 2.6 MEDS: Reviewed. Senna, lactulose GI: BMx2 11/09 SKIN: Jayant 16 - redness noted on sacrum. CURRENT WT: 84 kg (8.9% wt loss from prior admission, likely fluid related) BMI: 27.3 kg/m2 Previous Admit Wt (08/30/16): 92.2 kg DIET: Renal - PO intake 25-100%. PO avg is ~65% EST. NEEDS: TAMELA, Liver Disease Kcals: 1077-6437 kcal/day (25-35 kcal/kg BW) Pro: 55-90 g/day (0.6-1.0 g/kg BW) NUTRITION DIAGNOSIS: 1.) Altered nutrition-related lab values related to CKD and SIERRA as evidenced by elevated BUN, Flat[place] Ironer, Bilirubin and AST values.--IMPROVING NUTRITION INTERVENTION: 1.) Continue current diet as ordered and encourage PO intake. 2.) If PO avg decreases to less than 50%, consider addition of snack/supplement MONITOR / EVAL: Diet tolerance, NGT, labs, wt, GI, nutrition status, POC. Will continue to monitor per moderate nutritional risk guidelines
--- NOTE | 2016-11-09 14:35 | NUR ---
Social Work: Continued d/c planning Data: Pt is on day 4 of hospitalization. EMR reviewed. PT recommending SNF at this time. TILE FINISHER met with pt to discuss this option. Pt was agreeable to SNF if she needs it and accepted SNF choice list. Pt chose [facility] and [facility] for top two choices. UR specialist referred pt to these locations. TILE FINISHER called pt's spouse and left a message notifying him of this. Aury GARVIN states they can work with pt if she does go home. TILE FINISHER will continue to follow. Assessment: Pt who is independent at baseline. Plan: Pt will either d/c to SNF, [facility] referred, or home with [facility] GARVIN, RN/PT/OT/TILE FINISHER if she no longer needs SNF. TILE FINISHER will continue to follow. MOHAMUD Ham
--- NOTE | 2016-11-09 15:50 | NUR ---
C [facility] cannot take pt due to NG tube. Jennifer Soria, BACTERIOLOGY TEACHER
--- NOTE | 2016-11-09 17:53 | NUR ---
Rash Patient has a rash down her legs, on her back, breast, abd, arms and lon area. It is bright red with bright red splotches. Patient said at first that it didn't hurt or itch but later in the day it began to hurt and itch. Dr discontinued the nystatin cream and prescribed Kenalog instead. The cream has been applied once today to decrease the redness and had minimal effect. second application is due this evening. will continue to monitor.
[2016-11-09] MEDS: diphenhydrAMINE 25 mg Capsule PO PRN (19:59)
[2016-11-09] MEDS: cefTRIAXone Inj 2,000 MG in Dextrose 5% Minibag Plus 50 ML IV SCH (20:16)
[2016-11-10 04:09] VITALS: BP 102/50; PULSE 58; RESP 18; O2SAT 99
[2016-11-10 05:31] VITALS: PULSE 63
[2016-11-10] MEDS: Pantoprazole 40 mg ER24 Tablet PO SCH (06:31)
[2016-11-10] MEDS: diphenhydrAMINE 25 mg Capsule PO PRN (06:31)
--- NOTE | 2016-11-10 06:34 | NUR ---
Rash/GI Rash appears to be improving minimally with triamcinolone and PRN Benadryl. Pt up to BSC with 1PA and FWW. Unable to collect urine sample (mixed with BM's). PVR zero. NG DC'd at 1953, no c/o nausea or dysphagia. Pt A/Ox3, Q2 turns, [place] alarm on for safety.
[2016-11-10 06:46] LABS: BASOPHILS % (AUTO) 0.2 % (0-3); EOSINOPHILS % (AUTO) 7.5 % (0-5); MONOCYTES % (AUTO) 10.8 % (4-12); Mean Corpuscular Hemoglobin 31.8 pg (27.0-35.0); Mean Corpuscular Volume 96.9 fL (81-100); NEUTROPHILS % (AUTO) 70.1 % (40-74); Platelet Count 75 bil/L (150-400)
[2016-11-10] MEDS: Heparin 5,000 Unit/mL Inj SUBQ SCH (07:44)
--- NOTE | 2016-11-10 09:10 | NUR ---
MADELYN signed. MOHAMUD Dyer
[2016-11-10 09:14] VITALS: PULSE 70
[2016-11-10 09:31] VITALS: BP 110/48; PULSE 69; RESP 18; O2SAT 97
[2016-11-10] MEDS: Lactulose 20 Gm/30 mL 30 mL Syrup PO SCH (10:07)
[2016-11-10] MEDS: Artificial Tears 15 mL Ophthalmic Solution BOTH_EYES PRN (10:10)
--- NOTE | 2016-11-10 10:26 | NUR ---
Social Work-readiness for discharge: Data:EMR reviewed. Pt is on day 5 of hospitalization for hepatic encepaolpathy per H&P. Pt is not medically stable anticipate later today or tomorrow.NG tube has been removed. PT has cleared pt for home with Outpt vs services, pt ambulating 100ft. SW followed up with pt and Nicolas at bedside to discuss, SW role explained. Both in agreement of returning home with [facility] services. SW provided them with phone number for Aury. Pt's to provide transport home. F2F in folder. SW will continue to follow. Assessment:Pt to benefit from . Plan:Pt to discharge home with when medically stable via POV. Referral made to [facility] for RN,PT, OT. F2F in folder. SW will continue to follow. MOHAMUD Dyer Addendum: 11/10/16 at 1051 by EBEN GALARZA SS ALEX discussed DPOA/advanced directive, pt and state they have the paperwork and are working on completing this information. MOHAMUD Dyer
[2016-11-10 13:24] VITALS: BP 126/70; PULSE 66; RESP 18; O2SAT 96
--- NOTE | 2016-11-10 13:39 | PCM.DIMED ---
Patricia Pride DO 11/10/16 1339: Discharge Instructions Date of Service Nov 10, 2016 Dates of Hospitalization Nov 05, 2016 at 14:45 Discharge Diagnosis Discharge Diagnosis 1. TAMELA and CKD (stage 3), not present on admission, acute on chronic, acute is resolving and stable 2. Hepatic encephalopathy, recurrent, present on admission. Resolved. 2. SIERRA with cirrhosis, chronic, present on admission. Chronic and stable. 4. Urinary tract infection, recurrent. Present on admission. Active. 5. Sinus bradycardia, acute, present on admission. Resolved. 6. Elevated troponin, present on admission in the setting of kidney disease. Present on admission. Chronically elevated, stable. 7. Hypertension, chronic, stable. 8. Chronic anemia and thrombocytopenia secondary to chronic kidney disease, stable. Medication Instructions Please resume all your home medications, except do not take the metoprolol until you see your primary care doctor. Your heart rate has been a little low while in the hospital and this medication can cause your heart rate to slow. I do not want you to take this medication and get dizzy and fall. Talk to your doctor at the residency clinic about it. Diet Heart Healthy, Renal Diet Activity Other (As tolerated) Call your provider Shortness of breath, Other (Confusion) Patient Instructions Follow-up Provider: Vishnu Gimenez DO Follow-up with PCP in: 1 week Allen Perla MD 11/11/16 1301: Patricia Pride DO Nov 10, 2016 13:39 Allen Perla MD Nov 11, 2016 13:01
--- NOTE | 2016-11-10 13:40 | PCM.PNMED ---
Subjective Date of Service Nov 10, 2016 Subjective She is doing much better today and sitting in the chair. is at bedside. Exam Vital Signs Vital Sign - Last Date Time Temp Pulse Resp B/P Pulse Ox O2 Delivery O2 Flow Rate FiO2 11/10/16 13:24 37.2 66 18 126/70 96 Room Air 11/05/16 14:41 2 Intake and Output 11/09/16 11/09/16 11/10/16 Cumulative From/Thru 15:00 23:00 07:00 11/05/16 11:41 - 11/10/16 06:35 Intake Total 1635 ml 578 ml 8627 ml Output Total 650 ml 2600 ml Balance 1635 ml -72 ml 6027 ml Intake Oral 1000 ml 100 ml 5630 ml IV Total 635 ml 478 ml 2997 ml Output Urine Total 1950 ml Urine/Stool Mix 650 ml 650 ml # Voids 2 10 # Bowel Movements 1 9 Exam General appearance: Awake, oriented x3. HEENT: Mild pallor. No jaundice. No JVD. No lymphadenopathy. No thyroid enlargement. Atraumatic. Moist mucous membranes. Heart: Regular rhythm. Normal S1, S2. Soft systolic murmur noted. Lungs: Clear to auscultation bilaterally. No wheezing. No rhonchi. Abdomen: Soft, obese, active bowel sounds, nontender. No mass appreciated. Extremities: Trace edema on the lower extremities. (+) flapping tremors but improved. Lab and Diagnostics Result Diagram: 11/10/16 0550 11/10/16 0550 X-Rays, CTs and MRIs PROCEDURE: CT BRAIN WITHOUT CONTRAST IMPRESSION: 1. No definite acute intracranial abnormality. 2. Diffuse white matter hypodensities likely representing moderate to severe chronic small vessel ischemic changes . A superimposed acute process may be obscured. If clinical concern persists, recommend further evaluation with MRI. 3. Moderate cerebral volume loss. 4. Sinus mucosal disease redemonstrated, most prominent within the left maxillary sinus. Approved by: Enoch Canseoc M.D. on 11/05/2016 at 14:57 PROCEDURE: X-RAY CHEST ONE VIEW, PORTABLE IMPRESSION: 1. Pulmonary vascular prominence suggesting mild edema. Approved by: Enoch Canseco M.D. on 11/05/2016 at 12:12 Date of Service: 11/08/16 RENAL SONOGRAM IMPRESSION: Mild bilateral renal cortical thinning and right renal cyst present. Kidneys otherwise are grossly normal. Dictated by: Surendra Hendrix [facility] Interpreted: Bailey Beltran MD on 11/08/2016 at 16: 49 Transcribed by: LINDSEY on 11/08/2016 at 16:50 Approved by: Bailey Beltran M.D. on 11/08/2016 at 17:17 Assessment & Plan 1. Acute kidney injury on chronic kidney disease secondary to intravascular volume depletion and acute tubular necrosis due to ongoing urinary tract infection. 2. Altered mental status secondary to hepatic encephalopathy. 3. Enterobacter urinary tract infection. 4. Nonalcoholic steatohepatitis with liver cirrhosis. 5. Hypertension, now with bradycardia. Metoprolol on hold. 6. Chronic anemia and thrombocytopenia secondary to liver cirrhosis. Plan: d/c IVF today when d/c, rec to resume monotherapy aldactone ~ 50 mg daily. loop diuretic can be added later on to increase natriuresis if indicated. VTE Prophylaxis: Sub-Q Heparin (Unfractionated), SCDs VTE Mechanical Devices: Intermittant Pneumatic CD Resuscitation Status: DNR/DNI:Do Not Resuscitate/Intubate Sandra Clemente MD Nov 10, 2016 13:40
--- NOTE | 2016-11-10 14:12 | NUR ---
Social Work- discharge: Data:EMR reviewed. Pt is on day 5 of hospitalization for hepatic encephalopathy per H&P. Pt medically stable for discharge.NG tube has been removed. PT has cleared pt for home with Outpt vs HH services, pt ambulating 100ft. ALEX informed Helio Jeffers liaison of discharge and faxed in F2F and orders for RN,PT,OT, and PHOTOGRAMMETRIC TECHNICIAN. SW updated pt and at bedside, both agreeable to plan. Pt's to provide transport home today. All updated and agreeable to plan. Assessment:Pt to benefit from HH. Plan:Pt to discharge home today via POV. F2F and orders faxed into [facility] for RN,PT,OT, and PHOTOGRAMMETRIC TECHNICIAN.All updated and agreeable to plan. MOHAMUD Dyer
--- NOTE | 2016-11-10 14:35 | NUR ---
Discharge nursing Note: Patient was discharged to home at 1430. Patients IV was discontinued intact. All of patients discharge information was reviewed with her and her and their questions were answered to their satisfaction. Patient was escorted to the Hospital lobby by nursing staff member and she was driven home by her .
--- NOTE | 2016-11-10 18:29 | PCM.DC.MED ---
Discharge Summary Date of Service Nov 10, 2016 Dates of Hospitalization Date of Hospital Admission Nov 05, 2016 at 14:45 Date of Discharge: Nov 10, 2016 Providers: Admitting Physician: Miguelito Jeronimo MD Primary Care Physician: Ajay,[facility] Residency Attending Physician: Miguelito Jeronimo MD Diagnosis at Time of Discharge Diagnosis at Time of Discharge 1. TAMELA and CKD (stage 3), not present on admission, acute on chronic, acute is resolving and stable 2. Hepatic encephalopathy, recurrent, present on admission. Resolved. 2. SIERRA with cirrhosis, chronic, present on admission. Chronic and stable. 4. Urinary tract infection, recurrent. Present on admission. Active. 5. Sinus bradycardia, acute, present on admission. Resolved. 6. Elevated troponin, present on admission in the setting of kidney disease. Present on admission. Chronically elevated, stable. 7. Hypertension, chronic, stable. 8. Chronic anemia and thrombocytopenia secondary to chronic kidney disease, stable. Consultations Nephrology, Dr. Lawrence Procedures XRay, CTs & MRIs PROCEDURE: CT BRAIN WITHOUT CONTRAST IMPRESSION: 1. No definite acute intracranial abnormality. 2. Diffuse white matter hypodensities likely representing moderate to severe chronic small vessel ischemic changes . A superimposed acute process may be obscured. If clinical concern persists, recommend further evaluation with MRI. 3. Moderate cerebral volume loss. 4. Sinus mucosal disease redemonstrated, most prominent within the left maxillary sinus. Approved by: Enoch Canseco M.D. on 11/05/2016 at 14:57 PROCEDURE: X-RAY CHEST ONE VIEW, PORTABLE IMPRESSION: 1. Pulmonary vascular prominence suggesting mild edema. Approved by: Enoch Canseco M.D. on 11/05/2016 at 12:12 Date of Service: 11/08/16 US RENAL SONOGRAM IMPRESSION: Mild bilateral renal cortical thinning and right renal cyst present. Kidneys otherwise are grossly normal. Dictated by: Surendra Hendrix RRKarey Interpreted: Bailey Beltran MD on 11/08/2016 at 16: 49 Transcribed by: LINDSEY on 11/08/2016 at 16:50 Approved by: Bailey eBltran M.D. on 11/08/2016 at 17:17 11/08/16 US RENAL SONOGRAM FINDINGS: Kidneys: Kidneys are normal in size. Right kidney measures 9.7 cm long; left kidney measures 10.4 cm long. Right renal cortical thickness is 0.9 cm; left renal cortical thickness is 1.1 cm. Renal cortical echotexture is normal. No hydronephrosis or nephrolithiasis. No suspicious solid mass lesions. Right kidney cyst measuring roughly 3.4 cm Bladder: Pre-void bladder volume is 59 mL. Post-void residual is not evaluated.. Pre-void images demonstrate no intraluminal masses or stones. On pre-void images, bilateral ureteral jets are noted with color Doppler interrogation. (Of note, ureteral jets may not be detectable in up to 25% of cases due to insufficient differences in specific gravity between ureteral and bladder urine). Miscellaneous: No free pelvic fluid. IMPRESSION: Mild bilateral renal cortical thinning and right renal cyst present. Kidneys otherwise are grossly normal. Dictated by: Surendra MORTON Interpreted: Bailey Beltran MD on 11/08/2016 at 16: 49 Transcribed by: LINDSEY on 11/08/2016 at 16:50 Approved by: Bailey Beltran M.D. on 11/08/2016 at 17:17 Brief History From history and physical by Dr. Bonilla on 11/05/16: Ms. Beckie Oconnor is an 86 year old woman with history of non-alcoholic liver cirrhosis who presented today to the emergency department via EMS for confusion. Her went to a medical appointment for himself this morning and when he came home he found her on the floor. He reports that she was confused and that this has happened in the past. She has not taken her lactulose for the past couple of days because she has been having regular bowel movements, and she did not want to have diarrhea. She has weakness. She had nausea this morning but denies vomiting. She denies abdominal pain currently but reported abdominal earlier in the day. She denies having any pain. She does not have dysuria. She is a poor historian. In the emergency department, she had a chest x-ray that showed mild pulmonary edema and brain CT that showed no definite acute intracranial abnormality. It also had diffuse white matter hypodensities likely representing moderate to severe chronic small vessel ischemic changes. A superimposed acute process may be obscured. If clinical concern persists, recommend further evaluation with MRI. History obtained from patient, patient's , and patient's EHR. Hospital Course 1. 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 Upon - Stopped diuretics while continuing fluids. Restart when appropriate - Urology, Dr. Lawrence, consulted. Appreciate. - Post void residual was 35ml - Renal ultrasound grossly normal - CMP 2. Hepatic encephalopathy, recurrent, present on admission. Resolving. -Recurrent hepatic encephalopathy secondary to SIERRA and not taking her lactulose at home -Changes daily on her mentation. Better today than yesterday. -Had NG tube placed yesterday because of swallowing difficulties. Now out -Brain CT: no acute changes. -UA confounding picture, see #4 -Ammonia level elevated at 351 on admission, last was 52 -Lactulose 20mg TID, Rifaxamin 550 BID -Blood cultures no growth 48 hours 2. SIERRA with cirrhosis, chronic, present on admission. Active. -See #1 above -Previous GI consultation in 02/2014 -Last CT abdomen/pelvis 07/2016 showed that the liver is shrunken and nodular, indicating cirrhosis. Multiple calcifications within the spleen are present, indicating remote granulomatous disease. Gallbladder grossly unremarkable. -Upon admission total bilirubin 2.1, AST 84, ALT 42, alkaline phosphatase 200, ammonia 351. Trending down -Lactulose, rifaximin -Hold torsemide and ursodiol for now and will monitor mental status and liver function. Restart when appropriate -Stool guaiac test negative 4. Urinary tract infection, recurrent. Present on admission. Active. -Urine culture >100,000 CFU enterobacter sensitive to Ceftriaxone. -Ceftriaxone 2g daily. 5. Sinus bradycardia, acute, present on admission. Resolved. -Held patient's home metoprolol -Telemetry 6. Elevated troponin, present on admission in the setting of kidney disease. Present on admission. Resolving. -This may represent demand ischemia or her new baseline since September 2016. Downtrend but still 0.032. -Denies chest pain or palpitations 7. Hypertension, chronic, stable. -Currently low-normal without medication - Holding diuretics, beta blockers -vitals 8. Chronic anemia and thrombocytopenia, stable. -Hgb 10.8, HCT 32 and platelets 123,000 both are stable compared to prior hospitalizations - CBC Exam Vital Signs (Last) Date Time Temp Pulse Resp B/P Pulse Ox O2 Delivery O2 Flow Rate FiO2 11/10/16 13:24 37.2 66 18 126/70 96 Room Air 11/05/16 14:41 2 Exam General: Sitting with in a chair. A&O x 3 on exam Eyes: EOMI, sclera anicteric Mouth: mucous membranes moist/pink Chest & Lungs: clear to auscultation, no adventitious breath sounds Cardiovascular: no murmurs/rubs/gallops, regular rate/rhythm Pulses: Radial (present and equal) Abdomen: soft, non-tender, normoactive bowel tones Musculoskeletal: no swollen or erythematous joints Skin: diffuse erythematous rash over abdomen, groin and legs (patient states is chronic) Extremities: no edema, no cyanosis, no clubbing Test 11/05/16 11:45 11/05/16 15:43 11/06/16 07:00 11/08/16 06:40 Magnesium Level 2.6mg/dL (1.6-2.6) Lipase 85U/L (13-60) Thyroid Stimulating Hormone (TSH) 2.660uIU/mL (0.450-4.500) Urine Color Yellow (YELLOW) Urine Appearance Hazy (CLEAR,HAZY) Urine pH 5.5 (5.0-8.0) Urine Specific [place] 1.020 (1.003-1.035) Urine Protein Negativemg/dL (NEG,TRACE) Urine Glucose (UA) Negativemg/dL (NEGATIVE) Urine Ketones Negativemg/dL (NEGATIVE) Urine Occult Blood Negative (NEGATIVE) Urine Nitrite Positive (NEGATIVE) Urine Bilirubin Negative (NEGATIVE) Urine Urobilinogen Normalmg/dL (NORMAL) Urine Leukocyte Esterase Moderate (NEGATIVE) Urine RBC 0-2/hpf (0-2) Urine WBC 0-5/hpf (0-5) Urine Epithelial Cells None/hpf (NONE-MOD) Urine Crystals None seen (NONE SEEN) Urine Bacteria Few/hpf (NONE-FEW) Urine Hyaline Casts None/lpf (NONE) Urine Granular Casts None seen (NONE SEEN) Urine Waxy Casts None seen (NONE SEEN) Urine Red Blood Cell Casts None seen (NONE SEEN) Urine White Blood Cell Casts None seen (NONE SEEN) Urine Mucus None seen (None Seen) Urine Trichomonas None seen (NONE SEEN) Urine Yeast None (NONE SEEN) Urinalysis Comment None Urine Culture Reflexed Indicated Troponin T 0.032ug/L (0.0-0.011) Procalcitonin 0.25ng/mL (0.00-0.08) Test 11/08/16 11:27 11/09/16 06:25 11/10/16 05:50 Prothrombin Time 15.7sec (8.1-12.5) Prothromb Time International Ratio 1.46ratio Ammonia 52ug/dL (18-53) White Blood Count 9.5th/mm3 (3.8-10.1) Red Blood Count 2.61mil/mm3 (3.90-5.20) Hemoglobin 8.3g/dL (12.0-15.6) Hematocrit 25.3% (35.0-46.0) Mean Corpuscular Volume 96.9fL (81-100) Mean Corpuscular Hemoglobin 31.8pg (27.0-35.0) Mean Corpuscular Hemoglobin Concent 32.8% (32.0-37.0) Red Cell Distribution Width 17.5% (12.3-15.4) Platelet Count 75bil/L (150-400) Neutrophils (%) (Auto) 70.1% (40-74) Lymphocytes (%) (Auto) 10.9% (14-46) Monocytes (%) (Auto) 10.8% (4-12) Eosinophils (%) (Auto) 7.5% (0-5) Basophils (%) (Auto) 0.2% (0-3) Sodium Level 132mEq/L (134-144) Potassium Level 4.2mEq/L (3.5-5.2) Chloride Level 101mEq/L (97-108) Carbon Dioxide Level 18mmol/L (18-29) Blood Urea Nitrogen 37mg/dL (8-27) Creatinine 1.66mg/dL (0.57-1.00) Estimat Glomerular Filtration Rate 42mL/min (>59) Glucose Level 83mg/dL (60-99) Calcium Level 8.7mg/dL (8.5-10.1) Total Bilirubin 1.1mg/dL (0.0-1.2) Aspartate Amino Transf (AST/SGOT) 44U/L (0-50) Alanine Aminotransferase (ALT/SGPT) 25U/L (0-32) Alkaline Phosphatase 142U/L (25-165) Total Protein 4.7g/dL (6.4-8.4) Albumin 2.3g/dL (3.4-5.0) Prealbumin 7mg/dL (20-40) Discharge Medications Discharge Medications Omeprazole (Omeprazole) 20 Mg Capsule.dr 20 MG PO DAILY (Reported) Rifaximin (Xifaxan) 550 Mg Tablet 550 MG PO BID (Reported) Spironolactone (Spironolactone) 100 Mg Tablet 100 MG PO DAILY (Reported) Torsemide (Torsemide) 20 Mg Tablet 20 MG PO BID (Reported) Ursodiol (Ursodiol) 300 Mg Capsule 600 MG PO BID (Reported) As needed Dimethicone (Cerave) 1 % Lotion 237 ML TP BID PRN PRN prn (Reported) Fexofenadine (Padma Allergy) 180 Mg Tablet 180 MG PO DAILY PRN PRN For Congestion (Reported) Hydrocortisone (Cortizone-10) 99 Gm Lotion 1 APPLIC TOP DAILY PRN PRN skin irritation (Reported) apply to affected area Lactulose (Lactulose) 10 Gm/15 Ml Solution 30 ML PO DAILY PRN PRN achieve 2 stools/day (Reported) Mineral Oil/Petrolatum,White (Refresh P.m. Ointment) 3.5 Gm Oint...g. 3.5 GM OP DAILY PRN PRN prn (Reported) Naproxen Sodium (Aleve) 220 Mg Capsule 220 MG PO BID PRN PRN For Pain (Reported ) Propylene Glycol/Peg 400/Pf (Systane 0.3-0.4% Eye Drops) 1 Each Droperette 1 EACH OP DAILY PRN PRN prn (Reported) Additional med instructions Please resume all your home medications, except do not take the metoprolol until you see your primary care doctor. Your heart rate has been a little low while in the hospital and this medication can cause your heart rate to slow. I do not want you to take this medication and get dizzy and fall. Talk to your doctor at the residency clinic about it. Followup Plan Disposition: Home with and [facility] Discharge Diet: Heart Healthy, Renal Diet Discharge Activity: Other (As tolerated) Follow-up Provider: Vishnu Gimenez DO Follow-up with PCP in: 1 week Time spent 40 minutes Attending Statement The patient was seen and examined together with Dr. Pride on 11/10/2016 and I agree with the history, exam and plan as outlined in the note above. Patricia Pride DO Nov 10, 2016 18:29 Allen Perla MD Nov 11, 2016 13:02
== END 2016-11-10 14:30 | disposition home health service (06) | DRG 441 ==
LOC: SED 11:30 → OBSVTOIN 14:45 → MPC 14:45
PROVIDERS: ADMIT Hospitalist; ATTEND Hospitalist
DX: K72.90 Hepatic failure, unspecified without coma (principal); K76.7 Hepatorenal syndrome; J81.0 Acute pulmonary edema; N17.0 Acute kidney failure with tubular necrosis; N39.0 Urinary tract infection, site not specified; I24.8 Other forms of acute ischemic heart disease; I25.10 Atherosclerotic heart disease of native coronary artery without angina pectoris; G89.29 Other chronic pain; I12.9 Hypertensive chronic kidney disease with stage 1 through stage 4 chronic kidney disease, or unspecified chronic kidney disease; N18.3 Chronic kidney disease, stage 3 (moderate); D69.6 Thrombocytopenia, unspecified; Z66 Do not resuscitate; D64.89 Other specified anemias; D63.8 Anemia in other chronic diseases classified elsewhere; B95.2 Enterococcus as the cause of diseases classified elsewhere; I25.2 Old myocardial infarction; Z91.19 Patient's noncompliance with other medical treatment and regimen

== ENCOUNTER 2016-11-22 16:03 | Inpatient (IN) | payer MEDICARE, OTHER ==
[~2016-11-22] VITALS: Ht 175.3 cm; Wt 97.1 kg
[~2016-11-22 16:03] MED LIST changes: +DIME237L2 TP; -HYPR25DR2 BOTH_EYES; +LACT10SO PO; -LACT10SO27 PO; -METO25TA99 PO; +NAPR220C11 PO; -PETR3.5O BOTH_EYES; +PETR3.5O OP; -PREN1TAB25 PO; -PROP10DR5 BOTH_EYES; +PROP1DRO OP; +SPIR100T3 PO; -SPIR50TA2 PO; +URSO300C2 PO
[2016-11-22 16:24] VITALS: BP 114/51; PULSE 68; RESP 16; O2SAT 98
[2016-11-22 16:25] VITALS: BP 114/51; PULSE 67; RESP 17; O2SAT 95
--- NOTE | 2016-11-22 16:28 | ED.REPORT ---
HPI-General Illness Date of Service Nov 22, 2016 ED Provider: Edmond Rehman DO Pt is an 86 y.o. female with a hx of CAD, MT, HTN, frequent UTI, and cirrhosis who presents to the ED via EMS with failure to thrive and lethargy. Pt's was concerned about the pt and does not believe she is "doing well". Per EMS pt has had failure to thrive after being discharge from the hospital on 11/10/16. Pt denies headache, facial pain, chest pain, abdominal pain, SOB, and extremity pain. Although pt is actively shivering upon examination she denies feeling cold. She states that she does not know why she was transported to the ED. Nursing Notes Stated Complaint: FAILURE TO THRIVE Chief Complaint: General Complaint Nursing Notes Reviewed: Yes Allergies: Coded Allergies: MUSHROOM (Verified Allergy, Severe, Rash,Itching,SOB, 11/22/16) shellfish derived (Verified Allergy, Severe, Headache, 11/22/16) Oily Fish (Verified Allergy, Intermediate, Hives, migraines, 11/22/16) Penicillins (Verified Allergy, Intermediate, rash, 11/22/16) quinine (Verified Allergy, Intermediate, rash, 11/22/16) Uncoded Allergies: SHELL FISH (Allergy, Intermediate, abd pain, rash, 03/20/16) migrains Scheduled Omeprazole (Omeprazole) 20 Mg Capsule.dr 20 MG PO DAILY Rifaximin (Xifaxan) 550 Mg Tablet 550 MG PO BID Spironolactone (Spironolactone) 100 Mg Tablet 100 MG PO DAILY Torsemide (Torsemide) 20 Mg Tablet 20 MG PO BID take at 0800 and 1600 Ursodiol (Ursodiol) 300 Mg Capsule 600 MG PO BID Scheduled PRN Fexofenadine (Padma Allergy) 180 Mg Tablet 180 MG PO DAILY PRN PRN For Congestion Hydrocortisone (Cortizone-10) 99 Gm Lotion 1 APPLIC TOP DAILY PRN PRN skin irritation apply to affected area Lactulose (Lactulose) 10 Gm/15 Ml Solution 30 ML PO DAILY PRN PRN achieve 2 stools/day Mineral Oil/Petrolatum,White (Refresh P.m. Ointment) 3.5 Gm Oint...g. 3.5 GM OP DAILY PRN PRN prn Naproxen Sodium (Aleve) 220 Mg Capsule 220 MG PO BID PRN PRN For Pain Nystatin (Nystatin) 15 Gm Powder 1 APPLIC EXT TID PRN PRN yeast Propylene Glycol/Peg 400/Pf (Systane 0.3-0.4% Eye Drops) 1 Each Droperette 1 EACH OP DAILY PRN PRN prn General Time Seen by MD: 16:20 Chief Complaint Other (Lethargy and failure to thrive) Hx Obtained From: Patient, Spouse, EMS Arrived By: Ambulance Sudden in Onset?: No Onset Occurred: Onset unknown Past Medical History Past Medical History Notes: Admit July 27 through 07/31/2016 for severe sepsis, UTI, acute on chronic kidney injury Code status: DNR Past Medical History 1. 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 Chronic macrocytic anemia b. Splenomegaly and chronic thrombocytopenia 2. Hypertension, controlled 3. History of UTIs, recent UTI 07/27/16 culture positive Klebsiella, ampicillin resistant 4. 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. 5. Right thyroid nodule. 6. Anemia with microcytosis. 7. Depression. 8. History of basal cell carcinoma of the forehead. 9. Recent admission with septic shock due to acute cholecystitis managed medically, complicated by TAMELA 10. Coronary artery disease, remote myocardial infarction. 11. Chronic knee pain 12. MT 13. Fatty liver 14. UTI Past Surgical History Reports: Hysterectomy Smoking History Never Smoker Social History Alcohol Use: Denies alcohol use Drug Use: Denies drug use Other Social History: Good social support, Local resident Ambulatory Status Independent Review of Systems Full Review of Systems Constitutional: Reports: Lethargy, Denies: Chills Respiratory: Denies: Shortness of breath Cardiovascular: Denies: Chest pain GI: Denies: Abdominal pain Musculoskeletal: Denies: Extremity pain Neurologic: Denies: Headache Complete sys rev & neg: except as marked. Physical Exam Vital Signs Vital Signs Date Time Temp Pulse Resp B/P Pulse Ox O2 Delivery O2 Flow Rate FiO2 11/22/16 20:33 35.4 72 20 95/42 96 Nasal Cannula 2 11/22/16 19:35 35.9 66 24 110/44 97 Nasal Cannula 2 11/22/16 17:52 35.6 69 21 109/45 98 Nasal Cannula 2 11/22/16 16:39 33 11/22/16 16:25 35 67 17 114/51 95 Room Air 11/22/16 16:24 34.9 68 16 114/51 98 Room Air Initial VS: Reviewed Extremities: Vascular intact, Neuro intact Skin: Warm, Dry, No cyanosis Neurologic: Alert, Oriented, Nonfocal Psychiatric: Mood/affect normal, Behavior normal, Normal thought content General/Constitutional: Awake, Alert Slow to answer Actively shivering, hypothermic Head / Eyes: Atraumatic, Normocephalic, PERRL ENT: Atraumatic, Airway patent Mouth: Positive: Mucous membranes dry Respiratory / Chest: Atraumatic, Breath sounds NL, Breath sounds = bilat, No respiratory distress, No rales, No rhonchi, No wheezing, No retractions, No stridor Cardiovascular: Regular rhythm, Heart sounds NL, No gallop, No murmurs, No rubs , Peripheral circulation NL Heart Rate / Rhythm: Positive: Bradycardia Abdomen: Atraumatic, Soft, Non-tender, No guarding, No rebound, No distention Interpretation & Diagnostics Lab Results Interpretation Result Diagram: 11/22/16 1613 11/22/16 1613 Test 11/22/16 16:13 11/22/16 16:45 11/22/16 16:50 11/22/16 17:15 White Blood Count 6.3th/mm3 (3.8-10.1) Red Blood Count 2.75mil/mm3 (3.90-5.20) Hemoglobin 8.9g/dL (12.0-15.6) Hematocrit 25.9% (35.0-46.0) Mean Corpuscular Volume 94.2fL (81-100) Mean Corpuscular Hemoglobin 32.4pg (27.0-35.0) Mean Corpuscular Hemoglobin Concent 34.4% (32.0-37.0) Red Cell Distribution Width 18.3% (12.3-15.4) Platelet Count 62bil/L (150-400) Neutrophils (%) (Auto) 81.6% (40-74) Lymphocytes (%) (Auto) 8.8% (14-46) Monocytes (%) (Auto) 7.8% (4-12) Eosinophils (%) (Auto) 1.6% (0-5) Basophils (%) (Auto) 0% (0-3) Hold Purple Top Tube Received (Received) Hold Blue Top Tube Received (Received) Sodium Level 130mEq/L (134-144) Potassium Level 3.1mEq/L (3.5-5.2) Chloride Level 94mEq/L (97-108) Carbon Dioxide Level 16mmol/L (18-29) Blood Urea Nitrogen 43mg/dL (8-27) Creatinine 2.16mg/dL (0.57-1.00) Estimat Glomerular Filtration Rate 31mL/min (>59) Glucose Level 163mg/dL (60-99) Calcium Level 9.9mg/dL (8.5-10.1) Magnesium Level 2.3mg/dL (1.6-2.6) Total Bilirubin 1.9mg/dL (0.0-1.2) Aspartate Amino Transf (AST/SGOT) 94U/L (0-50) Alanine Aminotransferase (ALT/SGPT) 47U/L (0-32) Alkaline Phosphatase 226U/L (25-165) Troponin T 0.045ug/L (0.0-0.011) Total Protein 6.0g/dL (6.4-8.4) Albumin 3.0g/dL (3.4-5.0) Thyroid Stimulating Hormone (TSH) 2.720uIU/mL (0.450-4.500) Hold Red Top Tube Received (Received) Hold [place] Top Tube Received (Received) Hold Urine Received (Received) Urine Color Yellow (YELLOW) Urine Appearance Hazy (CLEAR,HAZY) Urine pH 5.5 (5.0-8.0) Urine Specific [place] 1.015 (1.003-1.035) Urine Protein Negativemg/dL (NEG,TRACE) Urine Glucose (UA) Negativemg/dL (NEGATIVE) Urine Ketones Negativemg/dL (NEGATIVE) Urine Occult Blood Moderate (NEGATIVE) Urine Nitrite Negative (NEGATIVE) Urine Bilirubin Negative (NEGATIVE) Urine Urobilinogen Normalmg/dL (NORMAL) Urine Leukocyte Esterase Negative (NEGATIVE) Urine RBC >50/hpf (0-2) Urine WBC 0-5/hpf (0-5) Urine Epithelial Cells Few/hpf (NONE-MOD) Urine Crystals None seen (NONE SEEN) Urine Bacteria Moderate/hpf (NONE-FEW) Urine Hyaline Casts >20/lpf (NONE) Urine Granular Casts None seen (NONE SEEN) Urine Waxy Casts None seen (NONE SEEN) Urine Red Blood Cell Casts None seen (NONE SEEN) Urine White Blood Cell Casts None seen (NONE SEEN) Urine Mucus None seen (None Seen) Urine Trichomonas None seen (NONE SEEN) Urine Yeast None (NONE SEEN) Urinalysis Comment None Urine Culture Reflexed Indicated Lactic Acid Level 3.1mmol/L (0.4-2.0) Test 11/22/16 18:20 Ammonia 66ug/dL (18-53) General Lab Results Interp 1: Labs reviewed ECG Interpretation ECG Interpretation: PVC's No ST elevation or depression Time: 17:24 Interpreted by: ED physician Normal ECG Interpretation: Normal rate (81), Normal sinus rhythm X-Ray Chest Interpretation Chest Xray Interpretation: IMPRESSION: No pneumonia found. Mildly reduced inspiratory volume. Old granuloma left lateral midlung. Dictated by: Jalen Jurado M.D. on 11/22/2016 at 16:24 Approved by: Jalen Jurado M.D. on 11/22/2016 at 16:30 Re-Eval/Medical Decision Source of Hx: Old records Consultation : Referral / Consult Name: David Stacy MD Consulted With: Hospitalist Call Returned at: 19:32 Admissions Rn: Will see patient, Agrees with eval, Agrees with plan, Accepts admit Note: Discussed pt condition. Accepts admit. Counseled Regarding: Diagnosis Discharge & Departure Primary Impression: Hypothermia Additional Impressions: UTI (urinary tract infection) Renal insufficiency Disposition: ADMITTED TO HOSPITAL Discharge Condition All VS Reviewed: Yes Condition: No Change Referrals: Teo Butler DO (PCP) Palmira Attestation Portions of this note were transcribed by Gold Keene. I, Dr. Rehman personally performed the history, physical exam and medical decision-making; I reviewed and confirmed the accuracy of the information in the transcribed note. Signed by : Palmira Henderson, 11/22/16 and 2041. copies to: Teo Butler Todd P DO Nov 22, 2016 16:28 GOLD KEENE Nov 22, 2016 17:03
[2016-11-22] MEDS ORDERED: 0.9% Sodium Chloride 1,000 ML IV ONE (16:55)
[2016-11-22 17:05] LABS: BASOPHILS % (AUTO) 0 % (0-3); EOSINOPHILS % (AUTO) 1.6 % (0-5); MONOCYTES % (AUTO) 7.8 % (4-12); Mean Corpuscular Hemoglobin 32.4 pg (27.0-35.0); Mean Corpuscular Volume 94.2 fL (81-100); NEUTROPHILS % (AUTO) 81.6 % (40-74); Platelet Count 62 bil/L (150-400)
[2016-11-22 17:20] LABS: APPEARANCE,URINE HAZY (CLEAR,HAZY); COLOR,URINE YELLOW (YELLOW); OCCULT BLOOD,URINE MODERATE (NEGATIVE); PH,URINE 5.5 (5.0-8.0); UROBILINOGEN,URINE NORMAL (NORMAL)
[2016-11-22 17:31] LABS: Magnesium 2.3 mg/dL (1.6-2.6)
--- NOTE | 2016-11-22 17:32 | DRSVH ---
PROCEDURE: X-RAY CHEST ONE VIEW, PORTABLE ([id number]) INDICATIONS: LETHARGY AND HYPOTHERMIA TECHNIQUE: One view of the chest was acquired. COMPARISON: [facility], CR, XR CHEST 1VW (PORTABLE), 08/30/2016, 13:21. [facility], CR, XR CHEST 1VW, 11/07/2016, 16:14. FINDINGS: Surgical changes and devices: None. Lungs and pleura: No pleural effusions or pneumothorax. Lungs are clear except for a mild interstit ial prominence and a chronic lateral left mid chest granuloma.. Mediastinum: Mediastinal contours appear normal. Heart size is normal. Bones and chest wall: No suspicious bony lesions. Overlying soft tissues appear unremarkable. IMPRESSION: No pneumonia found. Mildly reduced inspiratory volume. Old granuloma left lateral midlu ng. Dictated by: Jalen Jurado M.D. on 11/22/2016 at 16:24 Approved by: Jalen Jurado M.D. on 11/22/2016 at 16:30
[2016-11-22 17:34] LABS: TROPONIN T 0.045 ug/L (0.0-0.011)
[2016-11-22] MEDS ORDERED: cefTRIAXone Inj 2,000 MG in Dextrose 5% Minibag Plus 50 ML IV ONE (17:50)
[2016-11-22 17:52] VITALS: BP 109/45; PULSE 69; RESP 21; O2SAT 98
[2016-11-22] MEDS: 0.9% Sodium Chloride 1,000 ML IV SCH ×2 (18:44→19:25)
[2016-11-22] MEDS ORDERED: NAPR220C11 PO (18:48)
[2016-11-22] MEDS ORDERED: NYST15PO5 EXT (18:59)
--- NOTE | 2016-11-22 19:06 | NUR ---
Social work referral Per pt. has been confused intermittently due to high ammonia levels and she has been up well in to the night wandering, requiring him to stay up and follow her "so she don't wander off." He states after her last admit "she don't do anything but sit there at home. I think she might need to go to [facility] [place]." states he is worn out and is hopeful that if she could go to [facility] [place] "they could do something for her there." Social work referral made accordingly.
--- NOTE | 2016-11-22 19:06 | NUR ---
Med rec Per pt. recently stopped metoprolol succinate several weeks ago.
[2016-11-22 19:35] VITALS: BP 110/44; PULSE 66; RESP 24; O2SAT 97
--- NOTE | 2016-11-22 19:58 | PCM.HPMED ---
Subjective Date of Service Nov 22, 2016 Primary Provider: Admitting Physician: Primary Care Physician: Teo Butler DO Attending Physician: Admit Status: From the Emergency Department Chief Complaint: Failure to thrive History of Present Illness: 86 y.o. female with a hx of CAD, [place], HTN, frequent UTI, SIERRA, and cirrhosis who was recently hospitalized from November 05- for hepatic encephalopathy, acute on chronic kidney injury, and recurrent UTI. Since that time at home she has become increasingly lethargic with poor food intake. was not available at the time of our visit however per report he was concerned about the pt and does not believe she is "doing well". Patient is alert to self place and situation but not time. She does have some understanding of the situation however says that she feels much better than she did when she first arrived to the hospital. She admits to decreased by mouth intake of food however she does drink 4 large glasses of fluid daily. She most recently took her lactulose yesterday morning. She reports shortness of breath with exertion but not at rest, some vision changes and she has been seeing spots recently. She states she has swelling in her legs. Pt denies headache, facial pain, chest pain, abdominal pain, SOB, and extremity pain. Although pt is actively shivering upon examination she denies feeling cold. She states that she does not know why she was transported to the ED. Much of her clinical history was obtained by previous records as she has limited understanding of her overall state of health. In the emergency department patient hypothermic with a minimum temperature of 34.9 on arrival. Pulse 68, respiratory rate 16, blood pressure 114/51, O2 saturation 98 on room air, upon admission patient was hypotensive at 95/42, fluids were increased for a bolus of 500 mL her blood pressure improved to 123/ 60 within an hour. Urinalysis shows moderate bacteria culture pending. She was started on NS at 100 mL/h, ceftriaxone IV was initiated. Review of Systems: A comprehensive review of systems was conducted with the patient and found to be negative except as above in the History of Present Illness. Allergies Coded Allergies: MUSHROOM (Verified Allergy, Severe, Rash,Itching,SOB, 11/22/16) shellfish derived (Verified Allergy, Severe, Headache, 11/22/16) Oily Fish (Verified Allergy, Intermediate, Hives, migraines, 11/22/16) Penicillins (Verified Allergy, Intermediate, rash, 11/22/16) quinine (Verified Allergy, Intermediate, rash, 11/22/16) Uncoded Allergies: SHELL FISH (Allergy, Intermediate, abd pain, rash, 03/20/16) migrains Home Medications Dimethicon 1% lotion topically BID PRN Fexofenadine 180 mg PO daily as needed for congestion Cortisone 10 lotion as needed Lactulose 10 gm as needed to achieve 2 stools/day Metoprolol succinate 12.5 mg PO BID Refresh PM ointment ophtalmic daily PRN Naproxen soidum 220 mg PO BID PRN pain Omeprazole 20 mg PO daily Systane Eye Drops daily as needed Rifaximin 550 mg PO BID Spironolactone 100 mg PO daily Torsemide 20 mg PO BID Ursodiol 600 mg PO BID PMH Nonalcoholic liver cirrhosis (SIERRA) with ascites and bilateral lower extremity edema Chronic macrocytic anemia Splenomegaly and chronic thrombocytopenia Hypertension History of UTIs, recent UTI 07/2016 culture positive Klebsiella, ampicillin resistant 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 Right thyroid nodule Anemia with microcystosis Depression History of basal cell carcinoma of forehead Recent admission with septic shock due to acute cholecystitis managed medically complicated by TAMELA Chronic knee pain Fatty liver Surgical History Hysterectomy Family History Mother with NJ at the age of 70 Social History Hx Alcohol Use: No Hx Substance Use: No Hx Tobacco Use: No Smoking Status: Never Smoker Living Arrangement: with Family Additional Information Patient lives at home with her elderly , she uses a walker primarily for ambulation around the house however will occasionally use a cane or also wheelchair. Exam Vital Signs Vital Sign - Last Date Time Temp Pulse Resp B/P Pulse Ox O2 Delivery O2 Flow Rate FiO2 11/22/16 19:35 35.9 66 24 110/44 97 Nasal Cannula 2 Exam General: No acute distress, patient covered with boris hugger, ill-appearing, appropriately interactive HEENT: Normocephalic, atraumatic. External ears without defect. Pupils mildly anisocoric, round, and reactive to light and accommodation. Anicteric sclerae, moist conjunctivae, and no lid lag. Oropharynx dry, free of erythema and cobble stoning Neck: Supple with full range of motion. No jugular venous distension. No lymphadenopathy or thyromegaly. Cardiovascular: Distant heart sounds, Regular rate and rhythm with no murmurs, rubs, or gallops appreciated Pulmonary: Clear to auscultation bilaterally with no crackles, wheezes, or rhonchi. Normal respiratory effort with no use of accessory muscles, decreased air movement. Abdomen: Bowel tones present. Soft, nontender, nondistended. No hepatosplenomegaly or masses appreciated. Midline surgical scar well-healed from remote hysterectomy Extremities: 3 + pitting edema to knees bilaterally, No clubbing, cyanosis, or lymphadenopathy appreciated. Skin: Bruises on upper left chest, small bruises on arms bilaterally Normal temperature, turgor, and texture; no rash, ulcers, or subcutaneous nodules appreciated. Neurological: Cranial nerves grossly intact. Muscle strength, tone, and bulk normal for age. Ambulates with assistance. Psychiatric: Normal mood and affect. Alert and oriented to person and place, but not time. Lab and Diagnostics Result Diagram: 11/22/16 1613 11/22/16 1613 X-Rays, CTs and MRIs Chest x-ray: IMPRESSION: No pneumonia found. Mildly reduced inspiratory volume. Old granuloma left lateral midlung. Dictated by: Jalen Jurado M.D. on 11/22/2016 at 16:24 12-lead ECG ECG Interpretation: PVC's No ST elevation or depression Time: 17:24 Interpreted by: ED physician Normal ECG Interpretation: Normal rate (81), Normal sinus rhythm Assessment & Plan 86 y.o. female with a hx of CAD, [place], HTN, frequent UTI, SIERRA, and cirrhosis who was recently hospitalized from November 05- for hepatic encephalopathy, acute on chronic kidney injury, and recurrent UTI. 1. Urinary tract infection, recurrent. Present on admission. Active. -WBC 6.3, pt is afebrile but hypothermic. -UA shows negative nitrite and negative leukocyte esterase, moderate occult blood, greater than 50 red blood cells, moderate bacteria, last urine culture revealed Enterobacter aerogenes sensitive to ceftriaxone -Urine culture pending -IV ceftriaxone started in emergency department. 2 g ceftriaxone every 24 hours ordered -Monitor vital signs and WBC for possible SIRS or sepsis 2. Altered mental status (hepatic encephalopathy), recurrent, present on admission. Active. 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 Acute kidney injury on chronic kidney disease (stage 3), present on admission. Active. -Creatinine 2.16, and it was 1.66 on 11/10/2016 -Possibly secondary to hepatorenal syndrome and worsening hepatic function -Continue to monitor with CMP in the morning 4. SIERRA with cirrhosis, chronic, present on admission. Active. -See #2 above -Previous GI consultation in 02/2014 -Last CT abdomen/pelvis 07/2016 showed that the liver is shrunken and nodular, indicating cirrhosis. Multiple calcifications within the spleen are present, indicating remote granulomatous disease. Gallbladder grossly unremarkable. -Total bilirubin 1.9, AST 94, ALT 47, alkaline phosphatase 226, ammonia 66 today -Lactulose resumed as above -Continue rifaximin -Hold torsemide and ursodiol for now and will monitor mental status and liver function -Monitor liver function tests tomorrow morning 5. Elevated troponin, present on admission. Active. This may represent demand ischemia . -Troponin 0.045 today, in the past 0.036 10/2016 -Repeat troponin 6. Chronic anemia and thrombocytopenia -Hgb 8.9, HCT 25.9 and platelets 62,000 -Monitor with CBC in the morning 7. Hypertension, not currently active, chronic. -Hold torsemide as above -Continue to monitor Acetaminophen for mild pain when necessary. Bowel regimen Senna and MiraLAX PRN. Zofran when necessary for nausea and vomiting. DVT prophylaxis not started at this time due to low platelets and lower extremity edema, day team to reassess Patient is admitted under observation status with expected length of stay less than 2 midnights due to severity of presenting symptoms, risk of adverse event, and complexity of treatment plan. Pain Evaluation: Adequate Pain Control GI Prophylaxis: Not indicated Resuscitation Status: DNR/DNI:Do Not Resuscitate/Intubate Limited Interventions: BiPAP, Medications and IV Fluid Attending Statement The patient was seen and examined together with Dr. Parham on 11/22 and I agree with the history, exam and plan as outlined in the note above. Dianna Parham DO Nov 22, 2016 19:58 Umang Gerardo MD Nov 23, 2016 01:34
[2016-11-22] MEDS ORDERED: Ondansetron 2 mg/mL 2 mL Inj IVPUSH PRN (20:10)
[2016-11-22] MEDS ORDERED: Polyethylene Glycol (PEG) 17 Gm Powder PO PRN (20:10)
[2016-11-22] MEDS ORDERED: Alum-Mag Hydrox-Simeth 30 mL Suspension PO PRN (20:10)
[2016-11-22 20:33] VITALS: BP 95/42; PULSE 72; RESP 20; O2SAT 96
[2016-11-22] MEDS ORDERED: PROPYLENE GLYCOL PRN (21:00)
[2016-11-22] MEDS ORDERED: PEG PRN (21:00)
[2016-11-22] MEDS ORDERED: [UNRECOGNIZED DRUG - OTHER] PRN (21:00)
[2016-11-22 21:17] VITALS: BP 123/60; PULSE 80; RESP 22; O2SAT 98
[2016-11-22] MEDS ORDERED: Mineral Oil-Petroltum 120 Gm Cream TOPICAL PRN (21:45)
[2016-11-22] MEDS ORDERED: Lactulose 200 GM/Bottle Enema RECTAL PRN (22:00)
[2016-11-23] VITALS (9 sets, daily range): BP systolic 89–121; BP diastolic 45–70; PULSE 65–98; RESP 20–22; O2SAT 93–98
[2016-11-23 05:58] LABS: BASOPHILS % (AUTO) 0 % (0-3); EOSINOPHILS % (AUTO) 1.7 % (0-5); MONOCYTES % (AUTO) 6.1 % (4-12); Mean Corpuscular Hemoglobin 32.1 pg (27.0-35.0); Mean Corpuscular Volume 94.2 fL (81-100); NEUTROPHILS % (AUTO) 85.8 % (40-74); Platelet Count 44 bil/L (150-400)
[2016-11-23] MEDS: Pantoprazole 40 mg ER24 Tablet PO SCH (05:59)
[2016-11-23] MEDS: 0.9% Sodium Chloride 1,000 ML IV SCH ×2 (05:59→15:39)
[2016-11-23] MEDS: Lactulose 20 Gm/30 mL 30 mL Syrup PO SCH (05:59)
--- NOTE | 2016-11-23 06:31 | NUR ---
Admit Admitted to 3024 from ED via stretcher. Assisted into bed via slideboard. Generalized weakness throughout. A/O initially but later noted to have episodes of confusion but able to reorient. NS @ 100 infusing per orders. Tele SR without c/o CP. 2L NC without SOB. Unable to obtain temperature via oral, axillary and CT. Rajat Hugger applied with resolve of hypothermia at this time. Skin intact with multiple bruises and non raised red brooke noted on extremities. Tolerating PO intake without any noted difficulties. Reports poor appetite at home. Incontinent of urine with brief in place. Oriented to call light use but due to AMS pressure alarm and rails x3 in place for patient safety.
[2016-11-23 06:53] LABS: TROPONIN T 0.038 ug/L (0.0-0.011)
[2016-11-23] MEDS: Heparin 5,000 Unit/mL Inj SUBQ SCH ×2 (08:30→19:44)
--- NOTE | 2016-11-23 09:29 | NUR ---
Home medications Pt took a few home medications this am she brought with her. I have spoke with her about this and will be in soon and take home meds with him when he leaves today. She took medications she was scheduled to receive this am. Addendum: 11/23/16 at 0932 by NHUNG LENZ RN Wrong Patient! This note was intended for room 3028, not this pt.
--- NOTE | 2016-11-23 10:21 | PCM.PNMED ---
Subjective Date of Service Nov 23, 2016 Subjective - Pt seen and examined this morning. AAO x 1. No acute events over night - c/o mild head ache. - She has rash on her back. But denies itching. Exam Vital Signs Vital Sign - Last Date Time Temp Pulse Resp B/P Pulse Ox O2 Delivery O2 Flow Rate FiO2 11/23/16 08:51 36.6 84 21 106/58 93 Nasal Cannula 2.00 Intake and Output 11/22/16 11/22/16 11/23/16 Cumulative From/Thru 15:00 23:00 07:00 11/22/16 16:42 - 11/23/16 06:56 Intake Total 2050 ml 0 ml 2050 ml Output Total 150 ml 150 ml Balance 1900 ml 0 ml 1900 ml Intake Oral 0 ml 0 ml 0 ml IV Total 2050 ml 2050 ml Output Urine Total 150 ml 150 ml # Voids 2 2 # Bowel Movements 0 0 Exam General: No acute distress, patient covered with boris hugger, ill-appearing, appropriately interactive HEENT: Normocephalic, atraumatic. External ears without defect. Pupils mildly anisocoric, round, and reactive to light and accommodation. Anicteric sclerae, moist conjunctivae, and no lid lag. Oropharynx dry, free of erythema and cobble stoning Neck: Supple with full range of motion. No jugular venous distension. No lymphadenopathy or thyromegaly. Cardiovascular: Distant heart sounds, Regular rate and rhythm with no murmurs, rubs, or gallops appreciated Pulmonary: Clear to auscultation bilaterally with no crackles, wheezes, or rhonchi. Normal respiratory effort with no use of accessory muscles, decreased air movement. Abdomen: Bowel tones present. Soft, nontender, nondistended. No hepatosplenomegaly or masses appreciated. Midline surgical scar well-healed from remote hysterectomy Extremities: 3 + pitting edema to knees bilaterally, No clubbing, cyanosis, or lymphadenopathy appreciated. Skin: Bruises on upper left chest, small bruises on arms bilaterally Normal temperature, turgor, and texture; no rash, ulcers, or subcutaneous nodules appreciated. Neurological: Cranial nerves grossly intact. Muscle strength, tone, and bulk normal for age. Ambulates with assistance. AA) x 1 Psychiatric: Normal mood and affect. Alert and oriented to person and place, but not time. IVs and Medications Medications Reviewed: Medications were reviewed in detail Lab and Diagnostics Result Diagram: 11/23/1640 11/23/1640 X-Rays, CTs and MRIs Chest x-ray: IMPRESSION: No pneumonia found. Mildly reduced inspiratory volume. Old granuloma left lateral midlung. Dictated by: Jalen Jurado M.D. on 11/22/2016 at 16:24 12-lead ECG ECG Interpretation: PVC's No ST elevation or depression Time: 17:24 Interpreted by: ED physician Normal ECG Interpretation: Normal rate (81), Normal sinus rhythm Assessment & Plan 86 y.o. female with a hx of CAD, [place], HTN, frequent UTI, SIERRA, and cirrhosis who was recently hospitalized from November 05- for hepatic encephalopathy, acute on chronic kidney injury, and recurrent UTI. 1. Urinary tract infection, recurrent. Present on admission. Active. -WBC 6.3, pt is afebrile but hypothermic. -UA shows negative nitrite and negative leukocyte esterase, moderate occult blood, greater than 50 red blood cells, moderate bacteria, last urine culture revealed Enterobacter aerogenes sensitive to ceftriaxone -IV ceftriaxone started in emergency department. 2 g ceftriaxone every 24 hours ordered -Monitor vital signs and WBC for possible SIRS or sepsis 2. Altered mental status (hepatic encephalopathy), recurrent, present on admission. Active. 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 Acute kidney injury on chronic kidney disease (stage 3), present on admission. Active. -Creatinine 2.07 <-- 2.16, and it was 1.66 on 11/10/2016 -Possibly secondary to hepatorenal syndrome and worsening hepatic function -Continue to monitor with CMP in the morning - Diuretics on hold 4. SIERRA with cirrhosis, chronic, present on admission. Active. -See #2 above -Previous GI consultation in 02/2014 -Last CT abdomen/pelvis 07/2016 showed that the liver is shrunken and nodular, indicating cirrhosis. Multiple calcifications within the spleen are present, indicating remote granulomatous disease. Gallbladder grossly unremarkable. -Lactulose resumed as above -Continue rifaximin -Hold torsemide and spirnolactone and will monitor mental status and liver function 5. Elevated troponin, present on admission. Active. This may represent demand ischemia . -Troponin 0.038 <-- 0.045 today, in the past 0.036 10/2016 -trending down 6. Chronic anemia and thrombocytopenia -Hgb 8.9, HCT 25.9 and platelets 62,000 -Monitor with CBC in the morning 7. Hypertension, not currently active, chronic. -Hold torsemide as above -Continue to monitor Acetaminophen for mild pain when necessary. Bowel regimen Senna and MiraLAX PRN. Zofran when necessary for nausea and vomiting. DVT prophylaxis not started at this time due to low platelets and lower extremity edema, day team to reassess GI Prophylaxis: Not indicated VTE Mechanical Devices: Intermittant Pneumatic CD Resuscitation Status: DNR/DNI:Do Not Resuscitate/Intubate Limited Interventions: BiPAP, Medications and IV Fluid Anthony Mobley MD Nov 23, 2016 10:21
--- NOTE | 2016-11-23 17:39 | NUR ---
Case Management: explained IMM to patient. patient signed. copy given to pt. orig in chart. CPerryRNCCM
[2016-11-23] MEDS: cefTRIAXone Inj 2,000 MG in Dextrose 5% Minibag Plus 50 ML IV SCH (19:36)
--- NOTE | 2016-11-23 19:44 | NUR ---
paged about heparin Pt's plt count was 44,000. paged. Sendy GRAVES gave this RN permission to withhold 2030 Heparin dose. Heparin dose withheld.
[2016-11-24] MEDS: 0.9% Sodium Chloride 1,000 ML IV SCH ×3 (02:15→21:25)
[2016-11-24 05:00] VITALS: BP 95/52; PULSE 85; RESP 20; O2SAT 96
[2016-11-24] MEDS: Pantoprazole 40 mg ER24 Tablet PO SCH (05:43)
[2016-11-24 06:26] LABS: BASOPHILS % (AUTO) 0 % (0-3); EOSINOPHILS % (AUTO) 2.9 % (0-5); MONOCYTES % (AUTO) 7.7 % (4-12); Mean Corpuscular Hemoglobin 31.9 pg (27.0-35.0); Mean Corpuscular Volume 95.3 fL (81-100); NEUTROPHILS % (AUTO) 77.1 % (40-74); Platelet Count 47 bil/L (150-400)
[2016-11-24] MEDS: Heparin 5,000 Unit/mL Inj SUBQ SCH ×2 (08:19→20:30)
[2016-11-24] MEDS: Lactulose 20 Gm/30 mL 30 mL Syrup PO SCH (08:27)
--- NOTE | 2016-11-24 11:31 | PCM.PNMED ---
Subjective Date of Service Nov 24, 2016 Subjective - Pt seen and examined this morning. AAO x 1. - She was hypothermic last night. Placed on [place] Shilpi. Now normothermic. - She is also more confused this morning. No bowel movements despite on lactulose. Exam Vital Signs Vital Sign - Last Date Time Temp Pulse Resp B/P Pulse Ox O2 Delivery O2 Flow Rate FiO2 11/24/16 08:40 Supplement Oxygen 11/24/16 05:00 36.5 85 20 95/52 96 2.00 Intake and Output 11/23/16 11/23/16 11/24/16 Cumulative From/Thru 14:59 22:59 06:59 11/22/16 16:42 - 11/24/16 06:28 Intake Total 2466 ml 1004 ml 5520 ml Output Total 150 ml Balance 2466 ml 1004 ml 5370 ml Intake Oral 472 ml 0 ml 472 ml IV Total 1994 ml 1004 ml 5048 ml Output Urine Total 150 ml # Voids 2 1 5 # Bowel Movements 1 1 Exam General: No acute distress, patient covered with boris hugger, ill-appearing, appropriately interactive HEENT: Normocephalic, atraumatic. External ears without defect. Pupils mildly anisocoric, round, and reactive to light and accommodation. Anicteric sclerae, moist conjunctivae, and no lid lag. Oropharynx dry, free of erythema and cobble stoning Neck: Supple with full range of motion. No jugular venous distension. No lymphadenopathy or thyromegaly. Cardiovascular: Distant heart sounds, Regular rate and rhythm with no murmurs, rubs, or gallops appreciated Pulmonary: Clear to auscultation bilaterally with no crackles, wheezes, or rhonchi. Normal respiratory effort with no use of accessory muscles, decreased air movement. Abdomen: Bowel tones present. Soft, nontender, nondistended. No hepatosplenomegaly or masses appreciated. Midline surgical scar well-healed from remote hysterectomy Extremities: 3 + pitting edema to knees bilaterally, No clubbing, cyanosis, or lymphadenopathy appreciated. Skin: Bruises on upper left chest, small bruises on arms bilaterally Normal temperature, turgor, and texture; no rash, ulcers, or subcutaneous nodules appreciated. Neurological: Cranial nerves grossly intact. Muscle strength, tone, and bulk normal for age. Ambulates with assistance. AA) x 1 Psychiatric: Normal mood and affect. Alert and oriented to person and place, but not time. Lab and Diagnostics Result Diagram: 11/24/16 0550 11/24/16 0550 X-Rays, CTs and MRIs Chest x-ray: IMPRESSION: No pneumonia found. Mildly reduced inspiratory volume. Old granuloma left lateral midlung. Dictated by: Jalen Jurado M.D. on 11/22/2016 at 16:24 12-lead ECG ECG Interpretation: PVC's No ST elevation or depression Time: 17:24 Interpreted by: ED physician Normal ECG Interpretation: Normal rate (81), Normal sinus rhythm Assessment & Plan 86 y.o. female with a hx of CAD, [place], HTN, frequent UTI, SIERRA, and cirrhosis who was recently hospitalized from November 05- for hepatic encephalopathy, acute on chronic kidney injury, and recurrent UTI. 1. Urinary tract infection, recurrent. Present on admission. Active. - UA shows negative nitrite and negative leukocyte esterase, moderate occult blood, greater than 50 red blood cells, moderate bacteria, last urine culture revealed Enterobacter aerogenes sensitive to ceftriaxone - on IV ceftriaxone day # 2 2. Altered mental status (hepatic encephalopathy), recurrent, present on admission. Active. 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 Acute kidney injury on chronic kidney disease (stage 3), present on admission. Active. - Creatinine worsening - Likely due to hepatorenal syndrome and worsening hepatic function - Continue to monitor with CMP in the morning - Diuretics on hold 4. SIERRA with cirrhosis, chronic, present on admission. Active. - Previous GI consultation in 02/2014 - Last CT abdomen/pelvis 07/2016 showed that the liver is shrunken and nodular, indicating cirrhosis. Multiple calcifications within the spleen are present, indicating remote granulomatous disease. Gallbladder grossly unremarkable. - Lactulose resumed as above - Continue rifaximin - Hold torsemide and spironolactone and will monitor mental status and liver function 5. Elevated troponin, present on admission. Active. This may represent demand ischemia . -Troponin 0.038 <-- 0.045 today, in the past 0.036 10/2016 -trending down Acetaminophen for mild pain when necessary. Bowel regimen Senna and MiraLAX PRN. Zofran when necessary for nausea and vomiting. DVT prophylaxis not started at this time due to low platelets and lower extremity edema, day team to reassess Code: DNR / DNI GI Prophylaxis: Not indicated VTE Mechanical Devices: Intermittant Pneumatic CD Resuscitation Status: DNR/DNI:Do Not Resuscitate/Intubate Limited Interventions: BiPAP, Medications and IV Fluid Anthony Mobley MD Nov 24, 2016 11:31
[2016-11-24 12:49] VITALS: BP 100/60; PULSE 81; RESP 21; O2SAT 97
--- NOTE | 2016-11-24 13:48 | NUR ---
Social Work-initial assessment: data:See initial assessment. Pt is a 86 y/o female who was admitted on 11/22/16 for UTI per H&P. Pt's insurance is [employer] and [employer] and [facility]. EMR reviewed.Pt's readmission score is 4-high risk. ALEX met with pt and Nicolas at bedside to discuss discharge planning, SW role explained. Pt is alert and oriented x3. Pt resides at home with her Nicolas where she remains independent with basic ADLS. Pt uses a FWW at baseline and does not drive. Pt is currently open with [facility], confirmed with Darshan Vernon [phone] [facility] liaison, pt will need resume services for RN,PT,OT, and [employer]. Pt has no SNF history. Pt has no penitentiary care or VA benefits. SW discussed DPOA/advanced directive, pt states they have completed this, SW encouraged her to bring a copy into the hospital. Pt's to provide transport home. Pt will need resume HH orders at discharge. SW will continue to follow. Assessment:Pt who would benefit from resume HH. Plan:Pt to discharge home with when medically stable via POV. Pt will need resume [facility] for RN,OT,PT, and C[employer]Y POLISHER. SW will continue to follow. MOHAMUD Dyer Addendum: 11/24/16 at 1355 by EBEN GALARZA SS Amended: Links added.
--- NOTE | 2016-11-24 16:13 | NUR ---
oral intake pt so far this shift has refused all food and most drinks. pt did allow this RN and the COLLATERAL CLERK to moisten her mouth.
[2016-11-24] MEDS: cefTRIAXone Inj 2,000 MG in Dextrose 5% Minibag Plus 50 ML IV SCH (18:35)
[2016-11-24 20:58] VITALS: BP 90/44; PULSE 96; RESP 22; O2SAT 93
[2016-11-25 05:38] VITALS: BP 91/50; PULSE 65; RESP 22; O2SAT 96
--- NOTE | 2016-11-25 06:14 | NUR ---
Mentation Alert with increased confusion noted compared to admit. Mumbled speech most of shift when answering questions and unable to provide any meaningful information during assessment. Yuniel alarm and rails up x3 for patient safety.
[2016-11-25] MEDS: Pantoprazole 40 mg ER24 Tablet PO SCH (06:42)
[2016-11-25] MEDS: 0.9% Sodium Chloride 1,000 ML IV SCH ×2 (07:25→17:25)
[2016-11-25 07:44] LABS: BASOPHILS % (AUTO) 0 % (0-3); EOSINOPHILS % (AUTO) 1.2 % (0-5); MONOCYTES % (AUTO) 11.4 % (4-12); Mean Corpuscular Hemoglobin 31.4 pg (27.0-35.0); Mean Corpuscular Volume 95.4 fL (81-100); NEUTROPHILS % (AUTO) 74.1 % (40-74); Platelet Count 43 bil/L (150-400)
[2016-11-25] MEDS: Heparin 5,000 Unit/mL Inj SUBQ SCH ×2 (08:30→20:30)
[2016-11-25] MEDS: Lactulose 20 Gm/30 mL 30 mL Syrup PO SCH (08:38)
--- NOTE | 2016-11-25 09:16 | PCM.PNMED ---
Subjective Date of Service Nov 25, 2016 Subjective - Pt seen and examined this morning. No acute events over night. She is more verbal then yesterday. Tolerating oral diet. Exam Vital Signs Vital Sign - Last Date Time Temp Pulse Resp B/P Pulse Ox O2 Delivery O2 Flow Rate FiO2 11/25/16 05:38 36.3 65 22 91/50 96 Nasal Cannula 2.00 Intake and Output 11/24/16 11/24/16 11/25/16 Cumulative From/Thru 15:00 23:00 07:00 11/22/16 16:42 - 11/25/16 06:33 Intake Total 299 ml 472 ml 100 ml 6391 ml Output Total 300 ml 450 ml Balance 299 ml 472 ml -200 ml 5941 ml Intake Oral 472 ml 100 ml 1044 ml IV Total 299 ml 5347 ml Output Urine Total 300 ml 450 ml # Voids 2 7 # Bowel Movements 0 2 3 Exam General: No acute distress HEENT: Normocephalic, atraumatic. External ears without defect. Pupils mildly anisocoric, round, and reactive to light and accommodation. Anicteric sclerae, moist conjunctivae, and no lid lag. Oropharynx dry, free of erythema and cobble stoning Neck: Supple with full range of motion. No jugular venous distension. No lymphadenopathy or thyromegaly. Cardiovascular: Distant heart sounds, Regular rate and rhythm with no murmurs, rubs, or gallops appreciated Pulmonary: Clear to auscultation bilaterally with no crackles, wheezes, or rhonchi. Normal respiratory effort with no use of accessory muscles, decreased air movement. Abdomen: Bowel tones present. Soft, nontender, nondistended. No hepatosplenomegaly or masses appreciated. Midline surgical scar well-healed from remote hysterectomy Extremities: 3 + pitting edema to knees bilaterally, No clubbing, cyanosis, or lymphadenopathy appreciated. Skin: Bruises on upper left chest, small bruises on arms bilaterally Normal temperature, turgor, and texture; no rash, ulcers, or subcutaneous nodules appreciated. Neurological: Cranial nerves grossly intact. Muscle strength, tone, and bulk normal for age. Ambulates with assistance. AA) x 1 Psychiatric: Normal mood and affect. Alert and oriented to person and place, but not time. IVs and Medications Medications Reviewed: Medications were reviewed in detail Lab and Diagnostics Result Diagram: 11/25/16 0710 11/25/16 0710 X-Rays, CTs and MRIs Chest x-ray: IMPRESSION: No pneumonia found. Mildly reduced inspiratory volume. Old granuloma left lateral midlung. Dictated by: Jalen Jurado M.D. on 11/22/2016 at 16:24 12-lead ECG ECG Interpretation: PVC's No ST elevation or depression Time: 17:24 Interpreted by: ED physician Normal ECG Interpretation: Normal rate (81), Normal sinus rhythm Assessment & Plan 86 y.o. female with a hx of CAD, [place], HTN, frequent UTI, SIERRA, and cirrhosis who was recently hospitalized from November 05- for hepatic encephalopathy, acute on chronic kidney injury, and recurrent UTI. 1. Urinary tract infection, recurrent. Present on admission. Active. - UA shows negative nitrite and negative leukocyte esterase, moderate occult blood, greater than 50 red blood cells, moderate bacteria, - Urine culture positive for E faeciumi resistant to Vancomycin - Will start on Linezolid. Consider ID consult tomorrow if not improving clinically. 2. Altered mental status (hepatic encephalopathy), recurrent, present on admission. Active. 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 Acute kidney injury on chronic kidney disease (stage 3), present on admission. Active. - Creatinine worsening - Likely due to hepatorenal syndrome and worsening hepatic function - Continue to monitor BMP - Diuretics on hold - Consider Nephrology consult if no improvement in creatinine 4. SIERRA with cirrhosis, chronic, present on admission. Active. - Previous GI consultation in 02/2014 - Last CT abdomen/pelvis 07/2016 showed that the liver is shrunken and nodular, indicating cirrhosis. Multiple calcifications within the spleen are present, indicating remote granulomatous disease. Gallbladder grossly unremarkable. - continue Lactulose, rifaximin - Hold torsemide and spironolactone and will monitor mental status and liver function Acetaminophen for mild pain when necessary. Bowel regimen Senna and MiraLAX PRN. Zofran when necessary for nausea and vomiting. DVT prophylaxis not started at this time due to low platelets and lower extremity edema, day team to reassess Code: DNR / DNI GI Prophylaxis: Not indicated VTE Mechanical Devices: Intermittant Pneumatic CD Resuscitation Status: DNR/DNI:Do Not Resuscitate/Intubate Limited Interventions: BiPAP, Medications and IV Fluid Anthony Mobley MD Nov 25, 2016 09:16
[2016-11-25 13:40] VITALS: BP 111/63; PULSE 74; RESP 22; O2SAT 98
--- NOTE | 2016-11-25 13:48 | NUR ---
chills pt states that she is feeling cold again, started the bear hugger at 36C. pt states that she already is feeling more comfortable.
--- NOTE | 2016-11-25 15:41 | NUR ---
MADELYN MADELYN signed
--- NOTE | 2016-11-25 17:30 | NUR ---
pt's breath sounds are still moist, holding IV fluids.
[2016-11-25 20:32] VITALS: BP 120/60; PULSE 78; RESP 22; O2SAT 98
[2016-11-26] MEDS: 0.9% Sodium Chloride 1,000 ML IV SCH (03:15)
[2016-11-26 04:59] VITALS: BP 98/46; PULSE 71; RESP 24; O2SAT 98
[2016-11-26 07:00] LABS: BASOPHILS % (AUTO) 0 % (0-3); EOSINOPHILS % (AUTO) 6.6 % (0-5); MONOCYTES % (AUTO) 14.6 % (4-12); Mean Corpuscular Hemoglobin 32.5 pg (27.0-35.0); Mean Corpuscular Volume 94.8 fL (81-100); NEUTROPHILS % (AUTO) 64.9 % (40-74); Platelet Count 43 bil/L (150-400)
--- NOTE | 2016-11-26 07:22 | NUR ---
Mentation, Edema: Pt is alert and oriented to self, place and year. Edema to bilateral lower extremities and dependent upper thigh area. Audible wheezes at times, although pt denies shortness of breath.
[2016-11-26] MEDS: Pantoprazole 40 mg ER24 Tablet PO SCH (07:59)
[2016-11-26] MEDS: Lactulose 20 Gm/30 mL 30 mL Syrup PO SCH (08:00)
[2016-11-26] MEDS: Heparin 5,000 Unit/mL Inj SUBQ SCH ×2 (08:30→20:30)
[2016-11-26] MEDS ORDERED: Albumin 25% 50 GM in IV Premix 1 EACH IV ONE (10:15)
[2016-11-26] MEDS ORDERED: 0.9% Sodium Chloride 250 ML ONE (12:31)
[2016-11-26 13:00] VITALS: BP 120/50; PULSE 78; RESP 22; O2SAT 98
--- NOTE | 2016-11-26 15:39 | PCM.PNMED ---
Subjective Date of Service Nov 26, 2016 Subjective Patient's awake without complaints of dyspnea, chest pain, nausea vomiting. She tells me in the presence of her that she does not want to be treated anymore and wake up in the hospital. If she did not wake up after this episode that would have been fine with her. Her agrees that her quality of life is terrible and while it makes him unhappy understands. Exam Vital Signs Vital Sign - Last Date Time Temp Pulse Resp B/P Pulse Ox O2 Delivery O2 Flow Rate FiO2 11/26/16 13:00 36.2 78 22 120/50 98 Nasal Cannula 3.00 Intake and Output 11/25/16 11/25/16 11/26/16 Cumulative From/Thru 15:00 23:00 07:00 11/22/16 16:42 - 11/26/16 06:04 Intake Total 1231 ml 200 ml 7822 ml Output Total 900 ml 400 ml 1750 ml Balance 331 ml -200 ml 6072 ml Intake Oral 1231 ml 200 ml 2475 ml IV Total 5347 ml Output Urine Total 900 ml 400 ml 1750 ml # Voids 7 # Bowel Movements 1 1 5 Exam General: No acute distress obese female sitting up in bed HEENT: Normocephalic, atraumatic. External ears without defect. Eyes Pupils mildly anisocoric, round, Anicteric sclerae, moist conjunctivae, and no lid lag. Neck: Supple with full range of motion. No jugular venous distension. No lymphadenopathy or thyromegaly. Cardiovascular: Distant heart sounds, Regular rate and rhythm with no murmurs, rubs, or gallops appreciated Pulmonary: Clear to auscultation bilaterally with no crackles, wheezes, or rhonchi. Normal respiratory effort with no use of accessory muscles, decreased air movement. Abdomen: Bowel tones present. Soft, nontender, nondistended. No hepatosplenomegaly or masses appreciated. Midline surgical scar well-healed from remote hysterectomy Extremities: 3 + pitting edema to knees bilaterally, No clubbing, cyanosis, or lymphadenopathy appreciated. Skin: Bruises on upper left chest, small bruises on arms bilaterally Normal temperature, turgor, and texture; no rash, ulcers, or subcutaneous nodules appreciated. Neurological: Cranial nerves grossly intact. Muscle strength, tone, and bulk normal for age. Ambulates with assistance. AA)x 1 Psychiatric: Normal mood and affect. a+ox3 seems perfectly lucid today Lab and Diagnostics Result Diagram: 11/26/1660411/26/16604 X-Rays, CTs and MRIs Chest x-ray: IMPRESSION: No pneumonia found. Mildly reduced inspiratory volume. Old granuloma left lateral midlung. Dictated by: Jalen Jurado M.D. on 11/22/2016 at 16:24 12-lead ECG ECG Interpretation: PVC's No ST elevation or depression Time: 17:24 Interpreted by: ED physician Normal ECG Interpretation: Normal rate (81), Normal sinus rhythm Assessment & Plan 86 y.o. female with a hx of CAD, [place], HTN, frequent UTI, SIERRA, and cirrhosis who was recently hospitalized from November 05- for hepatic encephalopathy, acute on chronic kidney injury, and recurrent UTI. 11/26 had a long talk with patient and . She is feeling better and agreeable to physical therapy however she states that she does not want to keep coming back to the hospital. To that end we had a discussion and I decided consult hospice. The thought is that likely she will be discharging to SNF in the next day or 2. She may transition to hospice either go home or even get hospice there that is what is being worked out. Today she has hypokalemia and I am going to treat some worsening renal failure with some albumin and some gentle hydration with IV K and will follow up on her labs. 1. Urinary tract infection, recurrent. Present on admission. Active. - UA shows negative nitrite and negative leukocyte esterase, moderate occult blood, greater than 50 red blood cells, moderate bacteria, - Urine culture positive for E faeciumi resistant to Vancomycin - Will start on Linezolid. Consider ID consult tomorrow if not improving clinically. -By all appearances UA shows colonization. I will discontinue linezolid in the next day or so upon discharge. Not clear whether this was UTI with mental status changes or simple metabolic encephalopathy from cirrhosis. 2. Altered mental status (hepatic encephalopathy), recurrent, present on admission. Active. 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 Acute kidney injury on chronic kidney disease (stage 3), present on admission. Active. - Creatinine worsening - Likely due to hepatorenal syndrome and worsening hepatic function - Continue to monitor BMP - Diuretics on hold -I am starting patient on gentle IV fluids and albumin 11/26 no plan to consult nephrology even global plan which is focused on comfort care. 4. SIERRA with cirrhosis, chronic, present on admission. Active. - Previous GI consultation in 02/2014 - Last CT abdomen/pelvis 07/2016 showed that the liver is shrunken and nodular, indicating cirrhosis. Multiple calcifications within the spleen are present, indicating remote granulomatous disease. Gallbladder grossly unremarkable. - continue Lactulose, rifaximin - Hold torsemide and spironolactone and will monitor mental status and liver function Acetaminophen for mild pain when necessary. Bowel regimen Senna and MiraLAX PRN. Zofran when necessary for nausea and vomiting. DVT prophylaxis not started at this time due to low platelets and lower extremity edema, day team to reassess Code: DNR / DNI with a focus on comfort and perhaps moving straight to hospice and/or full comfort care. Medically complex patient is high risk for complications GI Prophylaxis: Not indicated VTE Mechanical Devices: Intermittant Pneumatic CD Resuscitation Status: DNR/DNI:Do Not Resuscitate/Intubate Limited Interventions: BiPAP, Medications and IV Fluid Allen Drummond MD Nov 26, 2016 15:39
--- NOTE | 2016-11-26 16:08 | NUR ---
Social Work-continued d/c planning: Data:EMR reviewed. Pt is on day 4 of hospitalization for UTI per H&P. Pt is not medically stable for discharge at this time. PT evaluation may be beneficial for pt. Pt has HH services through [facility] at home fro RN,PT,OT, and [employer]. SW received a call from Hospice stating MD called and inquired about them seeing pt. SW to follow up with pt and to further discuss. SW will continue to follow. Assessment:home with HH vs SNF. Plan:Pt to either discharge home with HH vs SNF. PT evaluation would be beneficial. Pt currently open with [facility] for RN,PT,OT, and [employer]. SW will continue to follow. MOHAMUD Dyer
[2016-11-26] MEDS: D5 0.9% NaCl + KCl 20 mEq/L 1,000 ML IV SCH (17:28)
--- NOTE | 2016-11-26 18:30 | NUR ---
Mentation Pt's orientation seems to fluctuate during the day. She was disoriented to time and situation in the morning. She believed she was at "the college" and that we were going to "a graduation". Later in the afternoon she appeared to be oriented to situation. Mumbled speech. Scurry alarm for safety.
[2016-11-26 21:00] VITALS: BP 115/66; PULSE 66; RESP 22; O2SAT 100
[2016-11-27 00:50] VITALS: PULSE 75; RESP 26; O2SAT 95
[2016-11-27] MEDS: Albuterol-Ipratropium 3 mL Inhalation Solution NEB PRN ×2 (00:50→09:20)
[2016-11-27] MEDS ORDERED: Furosemide 10 mg/mL 2 mL Inj IV ONE (01:35)
[2016-11-27 01:40] VITALS: BP 107/57; PULSE 69; RESP 26; O2SAT 97
[2016-11-27] MEDS: D5 0.9% NaCl + KCl 20 mEq/L 1,000 ML IV SCH ×2 (02:50→08:00)
[2016-11-27 05:08] VITALS: BP 126/65; PULSE 74; RESP 24; O2SAT 97
--- NOTE | 2016-11-27 05:48 | NUR ---
Respiratory: RN noted pt working harder to breath, RR 26-28, long expiratory phase with audible wheezing. Also noted was a significant weight gain from time of admit at 88.4 kg to 95 kg this noc shift. MD alerted, new order for Duo Neb treatment and 20 mg IV Lasix. Pt remained on 3 L O2 throughout the night, sats mid to high 90's. Pt slept most of the night, Q2 turns, pleasant and cooperative with care.
[2016-11-27 06:59] LABS: Mean Corpuscular Hemoglobin 31.4 pg (27.0-35.0)
[2016-11-27] MEDS: Pantoprazole 40 mg ER24 Tablet PO SCH (07:59)
[2016-11-27 08:00] LABS: Unsaturated Iron Binding 101.9 ug/dL
[2016-11-27] MEDS: Lactulose 20 Gm/30 mL 30 mL Syrup PO SCH (08:00)
[2016-11-27] MEDS: Heparin 5,000 Unit/mL Inj SUBQ SCH ×2 (08:00→20:30)
[2016-11-27 09:20] VITALS: PULSE 69; RESP 20; O2SAT 98
--- NOTE | 2016-11-27 11:40 | NUR ---
Refusing lunch Pt refuses to eat lunch. States that she is not hungry and would like to stay in bed and rest. Care continues
--- NOTE | 2016-11-27 11:55 | NUR ---
Social Work-continued d/c planning: Data:EMR reviewed. Pt is on day 5 of hospitalization for UTI per H&P. Per MD, pt will not be ready to discharge for several days. states he spoke with pt and Nicolas yesterday and they are interested in having pt go to SNF then potentially transition to Hospice after this. states pt and amendable to Hospice information visit now. MD to order PT evaluation for pt. ALEX spoke with Stephy at Hospice who confirms they can complete information visit today at 1330. SW spoke with Nicolas on the phone who states he will be able to come in for that meeting today. SW explained that PT evaluation would be ordered to assist for skillable need for SNF. states an understanding. SW to follow up post PT evaluation. Pt is also open with [facility]. SW will continue to follow. Assessment:home with HH vs SNF. Plan:Pt to likely discharge home with resume HH vs SNF. Pt and to have Hospice information visit today at 1330. PT evaluation is pending. SW will continue to follow. MOHAMUD Dyer Addendum: 11/27/16 at [facility] by EBEN GALARZA SS SW updated by Hospice that pt and have not signed consents at this time, hoping for SNF placement. SW to follow up post PT evaluation. MOHAMUD Dyer
[2016-11-27 13:16] VITALS: BP 107/57; PULSE 69; RESP 22; O2SAT 97
--- NOTE | 2016-11-27 16:05 | PCM.PNMED ---
Subjective Date of Service Nov 27, 2016 Subjective Patient has no complaints of chest pain, dyspnea, nausea and vomiting. She does still state that she would rather have passed on and awoken up in the hospital again. Exam Vital Signs Vital Sign - Last Date Time Temp Pulse Resp B/P Pulse Ox O2 Delivery O2 Flow Rate FiO2 11/27/16 13:16 36.3 69 22 107/57 97 Nasal Cannula 2.00 Intake and Output 11/26/16 11/26/16 11/27/16 Cumulative From/Thru 15:00 23:00 07:00 11/22/16 16:42 - 11/27/16 06:32 Intake Total 500 ml 200 ml 8522 ml Output Total 550 ml 700 ml 3000 ml Balance -50 ml -500 ml 5522 ml Intake Oral 500 ml 200 ml 3175 ml IV Total 5347 ml Output Urine Total 550 ml 700 ml 3000 ml # Voids 7 # Bowel Movements 5 Exam General: No acute distress obese female sitting up in bed awake and lucid HEENT: Normocephalic, atraumatic. External ears without defect. Eyes Pupils mildly anisocoric, round, Anicteric sclerae, moist conjunctivae, and no lid lag. Neck: Supple with full range of motion. No jugular venous distension. No lymphadenopathy or thyromegaly. Cardiovascular: Distant heart sounds, Regular rate and rhythm with no murmurs, rubs, or gallops appreciated Pulmonary: Clear to auscultation bilaterally with no crackles, wheezes, or rhonchi. Normal respiratory effort with no use of accessory muscles, decreased air movement. Abdomen: Bowel tones present. Soft, nontender, nondistended. No hepatosplenomegaly or masses appreciated. Midline surgical scar well-healed from remote hysterectomy Extremities: 3 + pitting edema to knees bilaterally, No clubbing, cyanosis, or lymphadenopathy appreciated. Skin: Bruises on upper left chest, small bruises on arms bilaterally, subtle redness stasis dermatitis of her lower extremities skin is a little wrinkly and does not stretch discitis he could be Neurological: Cranial nerves grossly intact. Muscle strength, tone, and bulk normal for age. Ambulates with assistance. AA)x 1 Psychiatric: Normal mood and affect. a+ox3 seems perfectly lucid today Lab and Diagnostics Result Diagram: 11/27/16 0630 11/27/16 0630 X-Rays, CTs and MRIs Chest x-ray: IMPRESSION: No pneumonia found. Mildly reduced inspiratory volume. Old granuloma left lateral midlung. Dictated by: Jalen Jurado M.D. on 11/22/2016 at 16:24 12-lead ECG ECG Interpretation: PVC's No ST elevation or depression Time: 17:24 Interpreted by: ED physician Normal ECG Interpretation: Normal rate (81), Normal sinus rhythm Assessment & Plan 86 y.o. female with a hx of CAD, [place], HTN, frequent UTI, SIERRA, and cirrhosis who was recently hospitalized from November 05- for hepatic encephalopathy, acute on chronic kidney injury, and recurrent UTI. 11/26 had a long talk with patient and . She is feeling better and agreeable to physical therapy however she states that she does not want to keep coming back to the hospital. To that end we had a discussion and I decided consult hospice. The thought is that likely she will be discharging to SNF in the next day or 2. She may transition to hospice either go home or even get hospice there that is what is being worked out. Today she has hypokalemia and I am going to treat some worsening renal failure with some albumin and some gentle hydration with IV K and will follow up on her labs. 11/27 ordering physical therapy, stopping IV fluids follow-up labs in the morning and begin planning for potential discharge in the next day or 2. 1. Urinary tract infection, recurrent. Present on admission. Active. - UA shows negative nitrite and negative leukocyte esterase, moderate occult blood, greater than 50 red blood cells, moderate bacteria, - Urine culture positive for E faeciumi resistant to Vancomycin - Will start on Linezolid. Consider ID consult tomorrow if not improving clinically. -By all appearances UA shows colonization. I will discontinue linezolid in the next day or so upon discharge. Not clear whether this was UTI with mental status changes or simple metabolic encephalopathy from cirrhosis. -Repeat urinalysis in 11/28 2. Altered mental status (hepatic encephalopathy), recurrent, present on admission. 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 Acute kidney injury on chronic kidney disease (stage 3), present on admission. Active. - Creatinine improving, baseline approximately 1.7 - Likely due to hepatorenal syndrome and worsening hepatic function - Continue to monitor BMP - Diuretics on hold -I am starting patient on gentle IV fluids and albumin 11/26 no plan to consult nephrology even global plan which is focused on comfort care. -IV fluids were stopped, albumin continuing 11/27 we will check labs renal function improved CR 2.0 today 4. SIERRA with cirrhosis, chronic, present on admission. Active. - Previous GI consultation in 02/2014 - Last CT abdomen/pelvis 07/2016 showed that the liver is shrunken and nodular, indicating cirrhosis. Multiple calcifications within the spleen are present, indicating remote granulomatous disease. Gallbladder grossly unremarkable. - continue Lactulose, rifaximin - Hold torsemide and spironolactone and will monitor mental status and liver function -Follow up liver functions and ammonia level 11/28 Acetaminophen for mild pain when necessary. Bowel regimen Senna and MiraLAX PRN. Zofran when necessary for nausea and vomiting. DVT prophylaxis not started at this time due to low platelets and lower extremity edema, day team to reassess Code: DNR / DNI with a focus on comfort and perhaps moving straight to hospice and/or full comfort care. Medically complex patient is high risk for complications GI Prophylaxis: Not indicated VTE Mechanical Devices: Intermittant Pneumatic CD Resuscitation Status: DNR/DNI:Do Not Resuscitate/Intubate Limited Interventions: BiPAP, Medications and IV Fluid Allen Drummond MD Nov 27, 2016 16:05
[2016-11-27] MEDS: Albumin 25% 50 GM in IV Premix 1 EACH IV SCH (16:16)
--- NOTE | 2016-11-27 18:30 | NUR ---
Ambulation Pt up top chair for dinner. SBA/1 assist FWW. Uses furniture as well and walks gingerly as if feet are painful. Care continues
[2016-11-27 21:16] VITALS: BP 118/49; PULSE 71; RESP 20; O2SAT 95
[2016-11-28] VITALS (9 sets, daily range): BP systolic 102–125; BP diastolic 47–72; PULSE 55–73; RESP 21–26; O2SAT 91–97
[2016-11-28] MEDS: Albumin 25% 50 GM in IV Premix 1 EACH IV SCH ×2 (01:04→10:17)
[2016-11-28] MEDS: Pantoprazole 40 mg ER24 Tablet PO SCH (07:35)
[2016-11-28 08:22] LABS: BASOPHILS % (AUTO) 0.7 % (0-3); EOSINOPHILS % (AUTO) 4.9 % (0-5); MONOCYTES % (AUTO) 12.1 % (4-12); Mean Corpuscular Hemoglobin 32.7 pg (27.0-35.0); Mean Corpuscular Volume 97.5 fL (81-100); NEUTROPHILS % (AUTO) 66.2 % (40-74)
[2016-11-28 08:31] LABS: Platelet Count 31 bil/L (150-400)
--- NOTE | 2016-11-28 08:32 | NUR ---
Critical Lab Values HBG-6.5, HCT-19.4, PLT-31. Hospitalist notified.
[2016-11-28] MEDS: Lactulose 20 Gm/30 mL 30 mL Syrup PO SCH (10:17)
--- NOTE | 2016-11-28 11:40 | NUR ---
Social Work-readiness for discharge: Data:EMR Reviewed. Pt is on day 6 of hospitalization for UTI per H&P. Pt is not medically stable anticipate tomorrow. PT worked with pt and is recommending SNF, pt walked about 35ft. SW followed up with pt and Nicolas at bedside to further discuss, SW role explained. Pt and both in agreement for SNF, SNF choice list provided. Pt and would like a referral to [facility].SW faxed [facility] and [facility] and provided access in [employer]. Paperwork and [facility] placed in the chart. SW will continue to follow. Assessment:Pt who would benefit from SNF. Plan:[facility] has been faxed. Paperwork and [facility] placed in the chart. SW will continue to follow. MOHAMUD Dyer
[2016-11-28] MEDS ORDERED: diphenhydrAMINE 25 mg Capsule PO ONE (11:45)
--- NOTE | 2016-11-28 11:46 | NUR ---
SNF choice list provided. MOHAMUD Dyer
--- NOTE | 2016-11-28 11:46 | NUR ---
[facility] can accept with Dr. Ward to follow. MOHAMUD Dyer
--- NOTE | 2016-11-28 13:13 | PCM.PNMED ---
Subjective Date of Service Nov 28, 2016 Subjective No new complaints of chest pain, dyspnea, nausea or vomiting Exam Vital Signs Vital Sign - Last Date Time Temp Pulse Resp B/P Pulse Ox O2 Delivery O2 Flow Rate FiO2 11/28/16 10:23 Supplement Oxygen 11/28/16 09:09 36.1 60 22 109/47 97 2.50 Intake and Output 11/27/16 11/27/16 11/28/16 Cumulative From/Thru 15:00 23:00 07:00 11/22/16 16:42 - 11/28/16 06:22 Intake Total 947 ml 2117 ml 200 ml 27350 ml Output Total 325 ml 325 ml 3650 ml Balance 947 ml 1792 ml -125 ml 8136 ml Intake Oral 2008 ml 200 ml 5383 ml IV Total 947 ml 109 ml 6403 ml Output Urine Total 325 ml 325 ml 3650 ml # Voids 1 8 # Bowel Movements 1 6 Exam General: No acute distress obese female sitting up in bed awake and lucid HEENT: Normocephalic, atraumatic. Ears: ears without defect. Eyes Pupils mildly anisocoric, round, Anicteric sclerae, moist conjunctivae, and no lid lag. Neck: Supple with full range of motion. No jugular venous distension. No lymphadenopathy or thyromegaly. 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 Skin: Bruises on upper left chest, small bruises on arms bilaterally, subtle redness stasis dermatitis of her lower extremities skin is a little wrinkly and does not stretch discitis he could be Neurological: Cranial nerves grossly intact. Musc- moving 4 Ambulates with assistance. Psychiatric: Pleasant and appropriate Lab and Diagnostics Result Diagram: 11/28/16 0808 11/28/16 0808 X-Rays, CTs and MRIs Chest x-ray: IMPRESSION: No pneumonia found. Mildly reduced inspiratory volume. Old granuloma left lateral midlung. Dictated by: Jalen Jurado M.D. on 11/22/2016 at 16:24 12-lead ECG ECG Interpretation: PVC's No ST elevation or depression Time: 17:24 Interpreted by: ED physician Normal ECG Interpretation: Normal rate (81), Normal sinus rhythm Assessment & Plan 86 y.o. female with a hx of CAD, LA, HTN, frequent UTI, SIERRA, and cirrhosis who was recently hospitalized from November 05- for hepatic encephalopathy, acute on chronic kidney injury, and recurrent UTI. 11/26 had a long talk with patient and . She is feeling better and agreeable to physical therapy however she states that she does not want to keep coming back to the hospital. 11/27 patient remained medically stable spoke with social work/hospice 11/28 plan for discharge 11/29 patient to go to SNF after transfusing with probable shift to hospice to return home when Medicare benefit runs out. I am not ordering labs for the a.m. 11/29. #Anemia-6.5 11/28 -Transfuse 2 units PRBCs 11/28 -Iron and B12 WNL 11/28 chronic disease # Urinary tract infection, recurrent. Present on admission. Active. - UA shows negative nitrite and negative leukocyte esterase, moderate occult blood, greater than 50 red blood cells, moderate bacteria, - Urine culture positive for E faeciumi resistant to Vancomycin - Linezolid 11/25. Consider ID consult tomorrow if not improving clinically. -By all appearances UA shows colonization. I will discontinue linezolid in the next day or so upon discharge. Not clear whether this was UTI with mental status changes or simple metabolic encephalopathy from cirrhosis. -Repeat urinalysis in 11/28 no bacteria stopping linezolid 11/28 starting lactobacillus for suppression #Altered mental status (hepatic encephalopathy), recurrent, present on admission. 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 Resolved - Creatinine improving, baseline approximately 1.7 - Likely due to hepatorenal syndrome and worsening hepatic function - Continue to monitor BMP - Diuretics on hold -IV fluids stopped 11/27, albumin stopped 11/28 renal function improved Cr 1.76 -Patient persistently fluid positive and perhaps up 8 kg however edema seems improved as do symptoms therefore continuing to hold diuretics #SIERRA with cirrhosis, chronic, present on admission. Active. - Previous GI consultation in 02/2014 - Last CT abdomen/pelvis 07/2016 showed that the liver is shrunken and nodular, indicating cirrhosis. Multiple calcifications within the spleen are present, indicating remote granulomatous disease. Gallbladder grossly unremarkable. - continue Lactulose, rifaximin - Hold torsemide and spironolactone since admit -Transaminitis resolved, ammonia 99 11/28 Bowel regimen Senna and MiraLAX PRN. Zofran when necessary for nausea and vomiting. DVT prophylaxis not started at this time due to low platelets and lower extremity edema, day team to reassess Code: DNR / DNI with a focus on comfort and perhaps moving straight to hospice and/or full comfort care. Medically complex patient is high risk for complications GI Prophylaxis: Not indicated VTE Mechanical Devices: Intermittant Pneumatic CD Resuscitation Status: DNR/DNI:Do Not Resuscitate/Intubate Limited Interventions: BiPAP, Medications and IV Fluid Allen Drummond MD Nov 28, 2016 13:13 Allen Drummond MD Nov 28, 2016 13:13
[2016-11-28] MEDS ORDERED: 0.9% Sodium Chloride 250 ML ONE ×2 (14:22→17:48)
[2016-11-29 00:19] VITALS: PULSE 73; RESP 22; O2SAT 97
[2016-11-29] MEDS: Albuterol-Ipratropium 3 mL Inhalation Solution NEB PRN (00:19)
[2016-11-29] MEDS ORDERED: Furosemide 10 mg/mL 4 mL Inj IVPUSH ONE (01:20)
[2016-11-29 04:47] VITALS: BP 137/68; PULSE 60; RESP 22; O2SAT 93
--- NOTE | 2016-11-29 05:48 | NUR ---
Shift Note Assumed pt care at 2300, pt only alert to self, with baseline confusion, redirectable, pt on 02 at 2l via Oxymask, sats 96-98%, [id number], pt's head of bed kept >30', IV access on sl, qhrly checks done throughout night, girish alarm on for safety, call light in reach,.
[2016-11-29 07:52] LABS: BASOPHILS % (AUTO) 0.3 % (0-3); EOSINOPHILS % (AUTO) 3.5 % (0-5); MONOCYTES % (AUTO) 12.9 % (4-12); Mean Corpuscular Hemoglobin 30.6 pg (27.0-35.0); Mean Corpuscular Volume 92.8 fL (81-100); NEUTROPHILS % (AUTO) 72.9 % (40-74)
[2016-11-29 07:58] LABS: Platelet Count 27 bil/L (150-400)
[2016-11-29] MEDS: Lactulose 20 Gm/30 mL 30 mL Syrup PO SCH (09:34)
[2016-11-29 14:06] VITALS: BP 116/63; PULSE 67; RESP 22; O2SAT 98
--- NOTE | 2016-11-29 17:41 | NUR ---
Temperature Because of difficulty getting accurate oral/axillary temp's, rectal temp was taken today at 1653, result was 36.6/97.8. MD notified, no new orders.
--- NOTE | 2016-11-29 18:18 | NUR ---
Appetite Pt has had poor appetite today, only eating bites at lunch when was here. MD aware, will continue to encourage pt to eat at mealtime.
[2016-11-29 21:09] VITALS: BP 120/57; PULSE 69; RESP 22; O2SAT 98
--- NOTE | 2016-11-29 23:17 | PCM.PNMED ---
Subjective Date of Service Nov 29, 2016 Subjective Patient is poorly responsive today during my examination. She is unable to complain of anything and unable to give me any verbal responses she does respond to painful stimuli. The nurse Laith Santana states the patient has been getting up to go to the bathroom earlier in the day. However respirations appear to be irregular at this time and she is poorly responsive. Exam Vital Signs Vital Sign - Last Date Time Temp Pulse Resp B/P Pulse Ox O2 Delivery O2 Flow Rate FiO2 11/29/16 21:09 36.4 69 22 120/57 98 OxyMask 3.00 Intake and Output 11/28/16 11/28/16 11/29/16 Cumulative From/Thru 15:00 23:00 07:00 11/22/16 16:42 - 11/29/16 06:19 Intake Total 1077 ml 0 ml 01392 ml Output Total 375 ml 550 ml 4575 ml Balance 702 ml -550 ml 8288 ml Intake Oral 400 ml 0 ml 5783 ml IV Total 377 ml 6780 ml Packed Cells 300 ml 300 ml Output Urine Total 375 ml 550 ml 4575 ml # Voids 8 # Bowel Movements 1 1 8 Exam General: Patient is poorly responsive and is lying supine in bed with irregular respirations HEENT: Head is atraumatic and normocephalic. Eyes: Pupils are equally round and reactive to light and accommodation. Extraocular muscles are unable to be tested. Sclera are white, anicteric. Subconjunctival mucosa is pink. Ears and nose are unremarkable. Oropharynx: There is no mucosal lesions, there is no thrush, there is no pharyngitis. Neck: Is supple, there are no nodes, or masses or tenderness. Chest: There are very coarse breath sounds bilaterally presumably related to upper airway congestion. Heart: Rate, rhythm is regular. There is no new murmur, rub or gallop. Abdomen: Good bowel sounds are present. Abdomen is obese, soft, nontender, no organomegaly or masses were appreciated. Extremities: Are symmetrical and well perfused. There is no edema, there is no cellulitis, no rash. Neurologic: Patient is very poorly responsive There are no apparent focal neurological deficits. Cranial nerves were unable to be tested. There does not appear to be any sensory or motor deficits. Psychiatric: Patients mood is calm and shows no sign of agitation. Genital: Deferred Rectal: Deferred Lab and Diagnostics Result Diagram: 11/29/16 0705 11/29/16 0705 X-Rays, CTs and MRIs Chest x-ray: IMPRESSION: No pneumonia found. Mildly reduced inspiratory volume. Old granuloma left lateral midlung. Dictated by: Jalen Jurado M.D. on 11/22/2016 at 16:24 12-lead ECG ECG Interpretation: PVC's No ST elevation or depression Time: 17:24 Interpreted by: ED physician Normal ECG Interpretation: Normal rate (81), Normal sinus rhythm Assessment & Plan 86 y.o. female with a hx of CAD, GA, HTN, frequent UTI, SIERRA, and cirrhosis who was recently hospitalized from November 05- for hepatic encephalopathy, acute on chronic kidney injury, and recurrent UTI. On 11/26 Dr. Carr had a long talk with patient and . She is feeling better and agreeable to physical therapy however she states that she does not want to keep coming back to the hospital. 11/27 patient remained medically stable and Dr. Carr spoke with social work /hospice 11/28 plan for discharge 11/29 patient to go to SNF after transfusing with probable shift to hospice to return home when Medicare benefit runs out. I am not ordering labs for the a.m. 11/29. Hospice will be consulted # Anemia-6.5 11/28 -Transfuse 2 units PRBCs 11/28 -Iron and B12 WNL 11/28 chronic disease # Urinary tract infection, recurrent. Present on admission. Active. - UA shows negative nitrite and negative leukocyte esterase, moderate occult blood, greater than 50 red blood cells, moderate bacteria, - Urine culture positive for E faeciumi resistant to Vancomycin - Linezolid was started on 11/25/16. Consider ID consult tomorrow if not improving clinically. -By all appearances UA shows colonization. I will discontinue linezolid in the next day or so upon discharge. Not clear whether this was UTI with mental status changes or simple metabolic encephalopathy from cirrhosis. -Repeat urinalysis in 11/28 no bacteria stopping linezolid 11/28 starting lactobacillus for suppression # Altered mental status (hepatic encephalopathy), recurrent, present on admission. 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 Resolved - Creatinine improving, baseline approximately 1.7 - Likely due to hepatorenal syndrome and worsening hepatic function - Continue to monitor BMP - Diuretics on hold -IV fluids stopped 11/27, albumin stopped 11/28 renal function improved Cr 1.76 -Patient persistently fluid positive and perhaps up 8 kg however edema seems improved as do symptoms therefore continuing to hold diuretics # SIERRA with cirrhosis, chronic, present on admission. Active. - Previous GI consultation in 02/2014 - Last CT abdomen/pelvis 07/2016 showed that the liver is shrunken and nodular, indicating cirrhosis. Multiple calcifications within the spleen are present, indicating remote granulomatous disease. Gallbladder grossly unremarkable. - continue Lactulose, rifaximin - Hold torsemide and spironolactone since admit -Transaminitis resolved, ammonia 99 11/28 Bowel regimen Senna and MiraLAX PRN. Zofran when necessary for nausea and vomiting. DVT prophylaxis not started at this time due to low platelets and lower extremity edema, day team to reassess Code: DNR / DNI with a focus on comfort and perhaps moving straight to hospice and/or full comfort care. Medically complex patient is high risk for complications Pain Evaluation: Adequate Pain Control GI Prophylaxis: Not indicated VTE Mechanical Devices: Intermittant Pneumatic CD Resuscitation Status: DNR/DNI:Do Not Resuscitate/Intubate Limited Interventions: BiPAP, Medications and IV Fluid Abiel Zapien MD Nov 29, 2016 23:17
--- NOTE | 2016-11-30 03:01 | NUR ---
NOC shift note Patient was somnolent at beginning of shift, minimal verbal responses. Patient was more interactive with staff with 0230 assessment and brief change. Patient does deny dyspnea, but has audible upper airway wheezes. RT assessed, patient declined nebulizer treatment. On 3L oxymask, saturations high 90's. RR 20's. Moist, weak cough. Patient denies pain. Turned/repositioned frequently overnight. Bed alarm on for safety, bed is low/locked, and call light within reach. Intentional rounding.
[2016-11-30 05:02] VITALS: BP 111/54; PULSE 69; RESP 22; O2SAT 94
[2016-11-30] MEDS: Lactulose 20 Gm/30 mL 30 mL Syrup PO SCH (09:11)
[2016-11-30 09:15] VITALS: BP 112/54; PULSE 89; RESP 24; O2SAT 93
--- NOTE | 2016-11-30 09:24 | NUR ---
Oxygen At change of shift, pt on oxygen. Pt assessed on RA and found to be 92-93%. Pt now on RA. RR 24/min, seen to be using accessory muscles with external wheezing and end-expiratory wheezing. RT called for assessment. Pt denies pain. Alert to self. Will continue to monitor.
[2016-11-30 09:35] LABS: BASOPHILS % (AUTO) 0.3 % (0-3); EOSINOPHILS % (AUTO) 3.9 % (0-5); MONOCYTES % (AUTO) 10.3 % (4-12); Mean Corpuscular Hemoglobin 30.7 pg (27.0-35.0); Mean Corpuscular Volume 92.8 fL (81-100); NEUTROPHILS % (AUTO) 71.3 % (40-74)
[2016-11-30 09:39] LABS: Platelet Count 34 bil/L (150-400)
[2016-11-30] MEDS: Albuterol-Ipratropium 3 mL Inhalation Solution NEB PRN ×2 (09:50→13:34)
[2016-11-30 09:51] VITALS: PULSE 64; RESP 24; O2SAT 92
[2016-11-30 09:57] LABS: Magnesium 2.2 mg/dL (1.6-2.6)
--- NOTE | 2016-11-30 10:05 | NUR ---
MADELYN signed Verbal permission to sign, pt on precautions. MOHAMUD Ham
--- NOTE | 2016-11-30 12:15 | PCM.DIMED ---
Discharge Instructions Date of Service Nov 30, 2016 Dates of Hospitalization Nov 22, 2016 at 20:40 Discharge Diagnosis Discharge Diagnosis ARF with Cirrhosis of the Liver Diet Heart Healthy, Renal Diet Activity Outpatient Physical Therapy Call your provider Fever or Chills, Shortness of breath, Bleeding, Chest pain, Vomitting, Excessive diarrhea, Weakness (unilateral), Other Patient Instructions Follow-up Provider: [facility] Follow-up with PCP in: 1 week Abiel Zapien MD Nov 30, 2016 12:15
[2016-11-30] MEDS ORDERED: Lactobacillus Acidophilus PO (12:20)
[2016-11-30] MEDS ORDERED: TORS20TA3 PO (12:20)
[2016-11-30 13:34] VITALS: PULSE 77; RESP 20; O2SAT 95
--- NOTE | 2016-11-30 13:40 | NUR ---
[facility] will do transportation at 1500. Updated OFFICIAL GREETER
--- NOTE | 2016-11-30 14:13 | NUR ---
Social Work: Discharge Data: Pt is on day 8 of hospitalization. EMR reviewed. D/C orders are in. UR specialist notified and set up transportation with [facility] for 3PM. FUEL STORAGE TECHNICIAN notified ZOEY, RN, pt, and pt's spouse. No further d/c planning needs at this time. FUEL STORAGE TECHNICIAN will continue to follow if needs arise. Assessment: Pt who is independent at baseline. Plan: Pt will d/c to [facility] at 3:00pm via wheel chair van. No further d/c planning needs at this time. FUEL STORAGE TECHNICIAN will continue to follow if needs arise. MOHAMUD Ham
[2016-11-30 15:03] VITALS: BP 118/63; PULSE 88; RESP 22; O2SAT 93
--- NOTE | 2016-11-30 17:09 | NUR ---
Discharge Pt d/c to [facility] at 1604 via wc by staff from facility. IV d/c prior to leaving. Pt denied pain. All personal belongings left with pt. was aware of transfer-was at bedside in the AM. Report called to MICHELLE Pan, receiving pt at 1515.
--- NOTE | 2016-11-30 22:06 | PCM.DC.MED ---
Discharge Summary Date of Service Nov 30, 2016 Dates of Hospitalization Date of Hospital Admission Nov 22, 2016 at 20:40 Date of Discharge: Nov 30, 2016 Providers: Admitting Physician: David Stacy MD Primary Care Physician: Teo Butler DO Attending Physician: David Stacy MD Diagnosis at Time of Discharge Diagnosis at Time of Discharge ARF with Cirrhosis of the Liver Procedures XRay, CTs & MRIs Chest x-ray: IMPRESSION: No pneumonia found. Mildly reduced inspiratory volume. Old granuloma left lateral midlung. Dictated by: Jalen Jurado M.D. on 11/22/2016 at 16:24 ECG 12 Lead ECG Interpretation: PVC's No ST elevation or depression Time: 17:24 Interpreted by: ED physician Normal ECG Interpretation: Normal rate (81), Normal sinus rhythm Brief History The patient is an 86 y.o. female with a hx of CAD, [place], HTN, frequent UTI, SIERRA, and cirrhosis who was recently hospitalized from November 05- for hepatic encephalopathy, acute on chronic kidney injury, and recurrent UTI. Since that time at home she has become increasingly lethargic with poor food intake. was not available at the time of our visit however per report he was concerned about the pt and does not believe she is "doing well". Patient is alert to self place and situation but not time. She does have some understanding of the situation however says that she feels much better than she did when she first arrived to the hospital. She admits to decreased by mouth intake of food however she does drink 4 large glasses of fluid daily. She most recently took her lactulose yesterday morning. She reports shortness of breath with exertion but not at rest, some vision changes and she has been seeing spots recently. She states she has swelling in her legs. Pt denies headache, facial pain, chest pain, abdominal pain, SOB, and extremity pain. Although pt is actively shivering upon examination she denies feeling cold. She states that she does not know why she was transported to the ED. Much of her clinical history was obtained by previous records as she has limited understanding of her overall state of health. In the emergency department patient hypothermic with a minimum temperature of 34.9 on arrival. Pulse 68, respiratory rate 16, blood pressure 114/51, O2 saturation 98 on room air, upon admission patient was hypotensive at 95/42, fluids were increased for a bolus of 500 mL her blood pressure improved to 123/60 within an hour. Urinalysis shows moderate bacteria culture pending. She was started on NS at 100 mL/h, ceftriaxone IV was initiated. The patient was admitted to the hospital service. Hospital Course The patient is an 86 y.o. female with a hx of CAD, [place], HTN, frequent UTI, SIERRA, and cirrhosis who was recently hospitalized from November 05- for hepatic encephalopathy, acute on chronic kidney injury, and recurrent UTI. On 11/26 Dr. Carr had a long talk with patient and . She is feeling better and agreeable to physical therapy however she states that she does not want to keep coming back to the hospital. 11/27 patient remained medically stable and Dr. Carr spoke with social work /hospice 11/28 plan for discharge 11/29 patient to go to SNF after transfusing with probable shift to hospice to return home when Medicare benefit runs out. # Anemia of chronic disease-6.5 11/28 -Transfuse 2 units PRBCs 11/28 -Iron and B12 WNL 11/28 chronic disease # Urinary tract infection, recurrent. Present on admission. Active. - UA shows negative nitrite and negative leukocyte esterase, moderate occult blood, greater than 50 red blood cells, moderate bacteria, - Urine culture positive for E faeciumi resistant to Vancomycin - Linezolid was started on 11/25/16. Consider ID consult tomorrow if not improving clinically. -By all appearances UA shows colonization. I will discontinue linezolid in the next day or so upon discharge. Not clear whether this was UTI with mental status changes or simple metabolic encephalopathy from cirrhosis. -Repeat urinalysis in 11/28 no bacteria stopping linezolid 11/28 starting lactobacillus for suppression # Altered mental status (hepatic encephalopathy), recurrent, present on admission. 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 Resolved - Creatinine improving, baseline approximately 1.7 - Likely due to hepatorenal syndrome and worsening hepatic function - Continue to monitor BMP - Diuretics on hold -IV fluids stopped 11/27, albumin stopped 11/28 renal function improved Cr 1.76 -Patient persistently fluid positive and perhaps up 8 kg however edema seems improved as do symptoms therefore continuing to hold diuretics # SIERRA with cirrhosis, chronic, present on admission. Active. - Previous GI consultation in 02/2014 - Last CT abdomen/pelvis 07/2016 showed that the liver is shrunken and nodular, indicating cirrhosis. Multiple calcifications within the spleen are present, indicating remote granulomatous disease. Gallbladder grossly unremarkable. - continue Lactulose, rifaximin - Hold torsemide and spironolactone since admit -Transaminitis resolved, ammonia 99 11/28 Bowel regimen Senna and MiraLAX PRN. Zofran when necessary for nausea and vomiting. DVT prophylaxis not started at this time due to low platelets and lower extremity edema, day team to reassess Code: DNR / DNI with a focus on comfort and perhaps moving straight to hospice and/or full comfort care. Medically complex patient is high risk for complications Physician: Discussed with patient's Don at the bedside along with the patient who is much more awake and alert today. The patient wants to go home today however the patient's Don states that he cannot care for her at home and they both agreed it would be best that she go to [facility] long term facility today for rehabilitation prior to attempting to go home. Therefore, patient will be transferred to [place] to long term facility today. Exam Vital Signs (Last) Date Time Temp Pulse Resp B/P Pulse Ox O2 Delivery O2 Flow Rate FiO2 11/30/16 15:03 36.3 88 22 118/63 93 Room Air 11/30/16 05:02 3.00 Exam General: Patient is much more awake and alert today and is oriented to person, time and place HEENT: Head is atraumatic and normocephalic. Eyes: Pupils are equally round and reactive to light and accommodation. Extraocular muscles are unable to be tested. Sclera are white, anicteric. Subconjunctival mucosa is pink. Ears and nose are unremarkable. Oropharynx: There is no mucosal lesions, there is no thrush, there is no pharyngitis. Neck: Is supple, there are no nodes, or masses or tenderness. Chest: There are very coarse breath sounds bilaterally presumably related to upper airway congestion. Heart: Rate, rhythm is regular. There is no new murmur, rub or gallop. Abdomen: Good bowel sounds are present. Abdomen is obese, soft, nontender, no organomegaly or masses were appreciated. Extremities: Are symmetrical and well perfused. There is no edema, there is no cellulitis, no rash. Neurologic: Patient is much more lucid today. There are no apparent focal neurological deficits. Cranial nerves were unable to be tested. There does not appear to be any sensory or motor deficits. Psychiatric: Patients mood is calm and shows no sign of agitation. Genital: Deferred Rectal: Deferred Test 11/22/16 16:13 11/22/16 16:45 11/22/16 16:50 11/22/16 23:20 Hold Blue Top Tube Received (Received) Thyroid Stimulating Hormone (TSH) 2.720uIU/mL (0.450-4.500) Hold Red Top Tube Received (Received) Hold Urine Received (Received) Urine Color Yellow (YELLOW) Urine Appearance Hazy (CLEAR,HAZY) Urine pH 5.5 (5.0-8.0) Urine Specific Blair 1.015 (1.003-1.035) Urine Protein Negativemg/dL (NEG,TRACE) Urine Glucose (UA) Negativemg/dL (NEGATIVE) Urine Ketones Negativemg/dL (NEGATIVE) Urine Occult Blood Moderate (NEGATIVE) Urine Nitrite Negative (NEGATIVE) Urine Bilirubin Negative (NEGATIVE) Urine Urobilinogen Normalmg/dL (NORMAL) Urine Leukocyte Esterase Negative (NEGATIVE) Urine RBC >50/hpf (0-2) Urine WBC 0-5/hpf (0-5) Urine Epithelial Cells Few/hpf (NONE-MOD) Urine Crystals None seen (NONE SEEN) Urine Bacteria Moderate/hpf (NONE-FEW) Urine Hyaline Casts >20/lpf (NONE) Urine Granular Casts None seen (NONE SEEN) Urine Waxy Casts None seen (NONE SEEN) Urine Red Blood Cell Casts None seen (NONE SEEN) Urine White Blood Cell Casts None seen (NONE SEEN) Urine Mucus None seen (None Seen) Urine Trichomonas None seen (NONE SEEN) Urine Yeast None (NONE SEEN) Urinalysis Comment None Urine Culture Reflexed Indicated Lactic Acid Level 1.8mmol/L (0.4-2.0) Test 11/23/16 00:33 11/23/16 05:40 11/26/16 16:10 11/27/16 06:30 Hold Mares Top Tube Received (Received) Troponin T 0.038ug/L (0.0-0.011) Hold Purple Top Tube Received (Received) Hold [place] Top Tube Received (Received) Reticulocyte Count,Calculated 2.1% (0.6-2.6) Iron Level 72ug/dL (35-150) Total Iron Binding Capacity 174ug/dL (250-450) Percent Iron Saturation 41%sat (15-50) Unsaturated Iron Binding 101.9ug/dL Ferritin 127ng/mL (13-150) Vitamin B12 Level >1999pg/mL (211-946) Test 11/28/16 08:08 11/30/16 09:00 Ammonia 98ug/dL (18-53) White Blood Count 3.3th/mm3 (3.8-10.1) Red Blood Count 2.77mil/mm3 (3.90-5.20) Hemoglobin 8.5g/dL (12.0-15.6) Hematocrit 25.7% (35.0-46.0) Mean Corpuscular Volume 92.8fL (81-100) Mean Corpuscular Hemoglobin 30.7pg (27.0-35.0) Mean Corpuscular Hemoglobin Concent 33.1% (32.0-37.0) Red Cell Distribution Width 18.7% (12.3-15.4) Platelet Count 34bil/L (150-400) Neutrophils (%) (Auto) 71.3% (40-74) Lymphocytes (%) (Auto) 14.2% (14-46) Monocytes (%) (Auto) 10.3% (4-12) Eosinophils (%) (Auto) 3.9% (0-5) Basophils (%) (Auto) 0.3% (0-3) Sodium Level 134mEq/L (134-144) Potassium Level 4.2mEq/L (3.5-5.2) Chloride Level 104mEq/L (97-108) Carbon Dioxide Level 16mmol/L (18-29) Blood Urea Nitrogen 51mg/dL (8-27) Creatinine 1.72mg/dL (0.57-1.00) Estimat Glomerular Filtration Rate 40mL/min (>59) Glucose Level 100mg/dL (60-99) Calcium Level 9.7mg/dL (8.5-10.1) Magnesium Level 2.2mg/dL (1.6-2.6) Total Bilirubin 2.8mg/dL (0.0-1.2) Aspartate Amino Transf (AST/SGOT) 49U/L (0-50) Alanine Aminotransferase (ALT/SGPT) 24U/L (0-32) Alkaline Phosphatase 162U/L (25-165) Total Protein 5.1g/dL (6.4-8.4) Albumin 3.5g/dL (3.4-5.0) Discharge Medications Discharge Medications ([Lactobacillus Acidophilus]) 1 TABLET TABLET 2 TABLET PO PCHS Prescribed by: REBECA ZAPIEN MD Omeprazole (Omeprazole) 20 Mg Capsule.dr 20 MG PO DAILY (Reported) Rifaximin (Xifaxan) 550 Mg Tablet 550 MG PO BID (Reported) Spironolactone (Spironolactone) 100 Mg Tablet 100 MG PO DAILY (Reported) Torsemide (Torsemide) 20 Mg Tablet 20 MG PO DAILY take at 0800 and 1600 Prescribed by: REBECA ZPAIEN MD Ursodiol (Ursodiol) 300 Mg Capsule 600 MG PO BID (Reported) As needed Fexofenadine (Padma Allergy) 180 Mg Tablet 180 MG PO DAILY PRN PRN For Congestion (Reported) Hydrocortisone (Cortizone-10) 99 Gm Lotion 1 APPLIC TOP DAILY PRN PRN skin irritation (Reported) apply to affected area Lactulose (Lactulose) 10 Gm/15 Ml Solution 30 ML PO DAILY PRN PRN achieve 2 stools/day (Reported) Mineral Oil/Petrolatum,White (Refresh P.m. Ointment) 3.5 Gm Oint...g. 3.5 GM OP DAILY PRN PRN prn (Reported) Nystatin (Nystatin) 15 Gm Powder 1 APPLIC EXT TID PRN PRN yeast (Reported) Propylene Glycol/Peg 400/Pf (Systane 0.3-0.4% Eye Drops) 1 Each Droperette 1 EACH OP DAILY PRN PRN prn (Reported) Followup Plan Discharge Diet: Heart Healthy, Renal Diet Discharge Activity: Outpatient Physical Therapy Follow-up Provider: [facility] Follow-up with PCP in: 1 week Time spent Time spent on discharging this patient was greater than 35 minutes, over half of which was involved in counseling and coordination of care. Abiel Zapien MD Nov 30, 2016 22:06
== END 2016-11-30 16:42 | DRG 441 ==
LOC: EDUNIT# 16:03 → SED 16:03 → EDBD 16:03 → MPC 20:40 → OBSVTOIN 20:40
PROVIDERS: ADMIT Internal Medicine; ATTEND Internal Medicine
PROC: 30233N1 Transfusion of Nonautologous Red Blood Cells into Peripheral Vein, Percutaneous Approach (ICD-10-PCS; principal; 2016-11-28)
DX: K72.00 Acute and subacute hepatic failure without coma (principal); K76.7 Hepatorenal syndrome; N39.0 Urinary tract infection, site not specified; I24.8 Other forms of acute ischemic heart disease; N17.9 Acute kidney failure, unspecified; N18.3 Chronic kidney disease, stage 3 (moderate); K75.81 Nonalcoholic steatohepatitis (NASH); K74.60 Unspecified cirrhosis of liver; T68.XXXA Hypothermia, initial encounter; Z66 Do not resuscitate; I25.2 Old myocardial infarction; I12.9 Hypertensive chronic kidney disease with stage 1 through stage 4 chronic kidney disease, or unspecified chronic kidney disease; B96.89 Other specified bacterial agents as the cause of diseases classified elsewhere; R62.7 Adult failure to thrive; D64.9 Anemia, unspecified; Z16.21 Resistance to vancomycin

== ENCOUNTER 2016-12-11 11:14 | Emergency (ER) | payer MEDICARE, OTHER ==
[~2016-12-11] VITALS: Ht 165.1 cm; Wt 79.5 kg
[~2016-12-11 11:14] MED LIST changes: -DIME237L2 TP; +Lactobacillus Acidophilus PO; -NAPR220C11 PO; +NYST15PO5 EXT
[2016-12-11 11:21] VITALS: BP 93/26; PULSE 50; RESP 14; O2SAT 100
--- NOTE | 2016-12-11 11:48 | ED.REPORT ---
HPI-General Illness Date of Service Dec 11, 2016 ED Provider: Derrell Talbot MD Pt is an 86 year old female with a hx of cirrhosis of the liver, CAD, [place], HTN, frequent UTI, and SIERRA presenting to the ED via EMS from [facility] for a transfusion due to a low platelet count. They tried to schedule her as an outpatient but there is no availability until Saturday. Pt was admitted November 22 for hypothermia. [facility] noted downtrending H and H since yesterday thought to be due to bleeding from arm. Has a complex PMH with cirrhosis, chronic anemia and renal failure. Was to be on hospice at last DC but not started on hospice as she went to a SNF. Nursing Notes Stated Complaint: ANEMIA Chief Complaint: General Complaint Nursing Notes Reviewed: Yes Allergies: Coded Allergies: MUSHROOM (Verified Allergy, Severe, Rash,Itching,SOB, 11/22/16) shellfish derived (Verified Allergy, Severe, Headache, 11/22/16) Oily Fish (Verified Allergy, Intermediate, Hives, migraines, 11/22/16) Penicillins (Verified Allergy, Intermediate, rash, 11/22/16) quinine (Verified Allergy, Intermediate, rash, 11/22/16) Uncoded Allergies: SHELL FISH (Allergy, Intermediate, abd pain, rash, 03/20/16) migrains Scheduled ([Lactobacillus Acidophilus]) 1 TABLET TABLET 2 TABLET PO PCHS Omeprazole (Omeprazole) 20 Mg Capsule.dr 20 MG PO DAILY Rifaximin (Xifaxan) 550 Mg Tablet 550 MG PO BID Spironolactone (Spironolactone) 100 Mg Tablet 100 MG PO DAILY Torsemide (Torsemide) 20 Mg Tablet 20 MG PO DAILY take at 0800 and 1600 Ursodiol (Ursodiol) 300 Mg Capsule 600 MG PO BID Scheduled PRN Fexofenadine (Padma Allergy) 180 Mg Tablet 180 MG PO DAILY PRN PRN For Congestion Hydrocortisone (Cortizone-10) 99 Gm Lotion 1 APPLIC TOP DAILY PRN PRN skin irritation apply to affected area Lactulose (Lactulose) 10 Gm/15 Ml Solution 30 ML PO DAILY PRN PRN achieve 2 stools/day Mineral Oil/Petrolatum,White (Refresh P.m. Ointment) 3.5 Gm Oint...g. 3.5 GM OP DAILY PRN PRN prn Nystatin (Nystatin) 15 Gm Powder 1 APPLIC EXT TID PRN PRN yeast Propylene Glycol/Peg 400/Pf (Systane 0.3-0.4% Eye Drops) 1 Each Droperette 1 EACH OP DAILY PRN PRN prn General Time Seen by MD: 11:34 Chief Complaint Other (Anemia) Hx Obtained From: Patient, Spouse, EMS Arrived By: Ambulance Sudden in Onset?: No Onset Occurred: Yesterday Symptom Duration: Since onset Severity: Current: No pain currently Severity: Maximum: No pain Recent Healthcare: Recent doctor visit, Recent hospitalization Similar Sx Previous: No Past Medical History Past Medical History Notes: Admit July 27 through 07/31/2016 for severe sepsis, UTI, acute on chronic kidney injury Admit November 22- for hypothermia Code status: DNR Past Medical History 1. 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 Chronic macrocytic anemia b. Splenomegaly and chronic thrombocytopenia 2. Hypertension, controlled 3. History of UTIs, recent UTI 07/27/16 culture positive Klebsiella, ampicillin resistant 4. 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. 5. Right thyroid nodule. 6. Anemia with microcytosis. 7. Depression. 8. History of basal cell carcinoma of the forehead. 9. Recent admission with septic shock due to acute cholecystitis managed medically, complicated by TAMELA 10. Coronary artery disease, remote myocardial infarction. 11. Chronic knee pain 12. [place] 13. Fatty liver 14. UTI Past Surgical History Reports: Hysterectomy Family History mother of [place] at 70 Smoking History Never Smoker Social History Alcohol Use: Denies alcohol use Drug Use: Denies drug use Other Social History: Good social support, Local resident Ambulatory Status Walker Review of Systems Full Review of Systems Constitutional: Reports: Fatigue, Lethargy Respiratory: Denies: Shortness of breath GI: Denies: Vomiting Complete sys rev & neg: except as marked. Physical Exam No active external bleeding. Vital Signs Vital Signs Date Time Temp Pulse Resp B/P Pulse Ox O2 Delivery O2 Flow Rate FiO2 12/11/16 16:48 54 16 99/33 97 Room Air 12/11/16 15:00 54 16 99/33 97 Room Air 12/11/16 13:00 54 17 97/29 99 Room Air 12/11/16 11:21 35.8 50 14 93/26 100 Room Air Initial VS: Reviewed Head / Eyes: Atraumatic, Normocephalic, PERRL ENT: Conjunctiva normal, No scleral icterus Neck: Full range of motion Respiratory: No respiratory distress Abdomen / GI: No distention Extremities: Vascular intact, Neuro intact Skin: Warm, Dry, No cyanosis Neurologic: Alert, Oriented, Nonfocal Psychiatric: Mood/affect normal, Behavior normal, Normal thought content General/Constitutional: Awake, Alert Appears fatigued Re-Eval/Medical Decision Med Decision/Clinical Course 86-year-old female with multiple chronic ongoing medical problems. Had a long discussion with Beckie and her regarding goals of care. Early in the course of this discussion Beckie volunteered that she was tired and ready to be "done". Specific discussions regarding goals of care revealed that the patient did not wish further care to be oriented towards prolonging her life, but rather towards comfort measures. She did not wish labs to be drawn today. POLST form was completed with patient's assistance and in room. DNR/comfort. Abx with comfort as goal. No artificial hydration/nutrition and no blood products. Patient sent back to custodial facility by ambulance as not felt that she could tolerate a wheelchair or sit up independently. Time of Eval: 12:56 Patient Status: Condition improved Re-Evaluation/Progress Note: Pt reports that she is very tired. Spoke to the patient and her about plan for care. The pt's states that the pt wishes to go home and be on Hospice instead of returning from [facility]. Pt declines blood transfusions and requests comfort care only. Time of Eval: 14:45 Patient Status: Condition improved Re-Evaluation/Progress Note: Dr. Chaidez, the pt's PCP is at bedside. Discussed and is in agreement with plan. Counseled Regarding: Diagnosis, Lab results, Need for follow-up, When/why to return to ED Discharge & Departure Primary Impression: End stage liver disease Additional Impressions: Chronic anemia End of life care Disposition: Home Discharge Condition All VS Reviewed: Yes Condition: Improved Additional Instructions: After review of records and discussion with patient, and Dr Chaidez, we have shifted goals of care to comfort. Continue prior care, hospice is to be involved prior to discharge. Do contact primary care and evaluate for distress prior to transport to ED. Referrals: Teo Butler DO (PCP) Nino Chaidez Attestation Portions of this note were transcribed by Leatha Cordova. I, Dr. Talbot personally performed the history, physical exam and medical decision-making; I reviewed and confirmed the accuracy of the information in the transcribed note. Signed by : Palmira Marie, 12/11/2016 at 1551. copies to: Nino Chaidez DO; Teo Butler Donald L MD Dec 11, 2016 11:48 LEATHA CORDOVA Dec 11, 2016 11:58
[2016-12-11 13:00] VITALS: BP 97/29; PULSE 54; RESP 17; O2SAT 99
[2016-12-11 15:00] VITALS: BP 99/33; PULSE 54; RESP 16; O2SAT 97
[2016-12-11 16:48] VITALS: BP 99/33; PULSE 54; RESP 16; O2SAT 97
== END 2016-12-11 16:25 ==
LOC: SED 11:14 → EDBD 11:14 → SED 16:25
DX: K72.90 Hepatic failure, unspecified without coma (principal); D64.9 Anemia, unspecified; I25.10 Atherosclerotic heart disease of native coronary artery without angina pectoris; I25.2 Old myocardial infarction; I10 Essential (primary) hypertension; K74.69 Other cirrhosis of liver; Z51.5 Encounter for palliative care; Z87.440 Personal history of urinary (tract) infections; Z66 Do not resuscitate; Z87.448 Personal history of other diseases of urinary system; Z88.0 Allergy status to penicillin; Z88.8 Allergy status to other drugs, medicaments and biological substances